=== PATIENT | female | born 1955 | race Caucasian/White ===

== ENCOUNTER 2023-03-28 13:35 | Outpatient (OUT) | payer SELFPAY | END 2023-03-28 13:36 | disposition home or self-care (01) | LOC: PST 13:35 | PROVIDERS: Visit Provider Surgery | DX: Z01.818 Encounter for other preprocedural examination (principal); R94.8 Abnormal results of function studies of other organs and systems; K62.5 Hemorrhage of anus and rectum; K59.04 Chronic idiopathic constipation ==

== ENCOUNTER 2023-04-05 06:28 | Day surgery (SDC) | payer MEDICARE, MEDICAID, SELFPAY ==
--- NOTE | 2023-04-05 | OP_ITS ---
OPERATION DATE: ??04/05/2023 PREOPERATIVE DIAGNOSIS:? Constipation, rectal bleeding, abnormal PET scan. POSTOPERATIVE DIAGNOSIS:? Normal EGD and redundant colon. PROCEDURE:? EGD and colonoscopy to cecum. SURGEON:? Edin Brown M.D. ANESTHESIA:? Monitored anesthesia care. ESTIMATED BLOOD LOSS:? Zero. INDICATIONS AND CONSENT:? Patient is a 68-year-old female with multiple medical problems including a history of lung cancer, who had an abnormal PET scan with increased activity within the rectum.? She also has had intermittent constipation, rectal bleeding.? She also increased activity within the stomach. ?Indications, risks, benefits, alternatives of proceeding with EGD and colonoscopy were explained extensively to the patient, including the risks of bleeding, aspiration, esophageal/gastric/duodenal or colonic perforation or anesthetic complications.? All of her questions were answered.? Informed consent was obtained. PROCEDURE:? Patient was brought to the operating room, placed in the left lateral decubitus position.? Monitored anesthesia care was provided.? Bite block was placed in the patient?s mouth.? Scope was inserted into the oropharynx.? Under direct visualization, it was advanced into the esophagus, past the cricopharyngeus, down to the stomach.? The stomach was insufflated with air.? The pylorus was traversed down to the descending portion of the duodenum.? There was no evidence of duodenitis or ulceration.? There was no scarring within the pyloric channel.?? Scope was pulled back into the stomach and retroflexed.? There was no significant hiatal hernia.? The GE junction was noted at approximately 35 cm.? There was no distal esophagitis or Mann?s changes. ?The remainder of the esophagus was unremarkable.? The scope was then withdrawn.? Patient tolerated procedure well, was sent to recovery room in good condition. f/u screening colonoscopy in 10 years CC:? Patient?s family physician OCTAVIO
--- NOTE | 2023-04-05 | OP_ITS ---
OPERATION DATE: ??04/05/2023 ADDENDUM:? To operative report from 04/05/2023. After the EGD part, please add this colonoscopy description: Patient was then placed in the left lateral decubitus position.? Rectal exam was performed which revealed no masses or blood.? The scope was then inserted into the anal canal.? Under direct visualization, it was advanced.? With the aid of abdominal compression, it was advanced to the cecum, where cecal markings were clearly identified.? There was noted to be a good prep.? Upon withdrawal of the scope, mucosal surfaces were carefully examined.? There were no mass lesions or polyps.? No inflammatory changes or ulcerations.? There was no significant diverticulosis.? There was redundancy and spasm of the colon.? The scope was retroflexed in the anal canal.? There was no significant hemorrhoidal disease, some prominent rectal veins.? The scope was then withdrawn.? Patient tolerated the procedure well.? Follow up colonoscopy should be in 10 years for screening. CC:? Dr. Morgan CUNNINGHAM
[2023-04-05 06:40] VITALS: BMI 14.8
[2023-04-05 07:04] VITALS: BP 100/58; PULSE 68; RESP 18; TEMP 36.9; O2SAT 99
[2023-04-05] MEDS: LACTATED RINGER'S SOLUTION 1,000 ML 50 ML IV (07:14)
[2023-04-05 08:18] VITALS: BP 140/72; PULSE 75; RESP 17; TEMP 36.2; O2SAT 100
[2023-04-05 08:33] VITALS: BP 133/49; PULSE 78; RESP 18; O2SAT 95
[2023-04-05 08:48] VITALS: BP 148/98; PULSE 77; RESP 18; O2SAT 98
== END 2023-04-05 08:50 | disposition home or self-care (01) ==
PROVIDERS: PCP Internal Medicine; Visit Provider Surgery
PROC: (CPT 813; principal; 2023-04-05 07:30)
DX: R94.8 Abnormal results of function studies of other organs and systems (principal); K62.5 Hemorrhage of anus and rectum; K59.04 Chronic idiopathic constipation; F41.9 Anxiety disorder, unspecified; F31.9 Bipolar disorder, unspecified; J44.9 Chronic obstructive pulmonary disease, unspecified; E78.2 Mixed hyperlipidemia; M85.80 Other specified disorders of bone density and structure, unspecified site; G40.909 Epilepsy, unspecified, not intractable, without status epilepticus; Z79.899 Other long term (current) drug therapy; F17.210 Nicotine dependence, cigarettes, uncomplicated; F17.290 Nicotine dependence, other tobacco product, uncomplicated; Z85.118 Personal history of other malignant neoplasm of bronchus and lung; Q43.8 Other specified congenital malformations of intestine
CPT/HCPCS: 43235; 45378; J2704

== ENCOUNTER 2023-06-07 12:14 | Outpatient (OUT) | payer MEDICARE, MEDICAID, SELFPAY ==
--- NOTE | 2023-06-07 12:27 | MR_ITS ---
[address] [address] Patient Name: DAMON WHIPPLE MRN: [facility]:[id number] date: 1955 Sex: F Assigned Patient Location: LAB Current Patient Location: LAB Accession/Order Number: [id number] Exam Date: 06/07/2023 12:40 Report Date: 06/07/2023 13:50 At the request of: NON-STAFF PHYSICIAN Procedure: MR head/brain wo/w con MR head/brain wo/w con COMPARISON: August 2022 MRI brain CLINICAL HISTORY: Lung carcinoma. Evaluate for metastasis TECHNIQUE: Sagittal and axial T1, axial T2 FSE, axial flair, axial DWI, axial, sagittal, coronal T1 post 8 mL Dotarem FINDINGS: There is no diffusion abnormality. There is mild parenchymal volume loss. Mild T2 hyperintensity in the central and periventricular white matter. There is no cortical abnormality. There is no mass, mass effect, nor hydrocephalus. Postcontrast, there is no abnormal enhancement. The dural sinuses are patent. There are no areas of hemosiderin staining. The orbits, sella, and craniocervical junction appear unremarkable. Moderate spondylitic changes of the upper cervical spine MR/MR head/brain wo/w con IMPRESSION: NO MRI EVIDENCE FOR ACUTE ISCHEMIA. NO MRI EVIDENCE FOR INTRACRANIAL METASTATIC DISEASE. STABLE FOLLOW-UP Electronically authenticated by: ROLY SEVILLA Date: 06/07/2023 13:50
[2023-06-07 12:43] LABS: Alanine Aminotransferase 19 U/L (14-59); Albumin Globulin Ratio 0.9; Albumin Level 3.7 g/dL (3.4-5.0); Alkaline Phosphatase 78 U/L (46-116); Anion Gap 15.2; Aspartate Amino Transferase 13 U/L (15-37); Bilirubin Total 0.3 mg/dL (0.2-1.0); Calcium 9.1 mg/dL (8.5-10.1); Carbon Dioxide 25.9 mmol/L (21.0-32.0); Chloride 105 mmol/L (98-107); Estimated GFR (African America >60 (>=60); Estimated GFR (Non-African Ame >60 (>=60); Globulin 3.9 g/dL; Glucose 133 mg/dL (74-106); Potassium 4.1 mmol/L (3.5-5.1); Sodium 142 mmol/L (136-145); Total Protein 7.6 g/dL (6.4-8.2)
== END 2023-06-07 12:15 | disposition home or self-care (01) ==
LOC: LAB 12:14
PROVIDERS: PCP Internal Medicine
DX: C34.90 Malignant neoplasm of unspecified part of unspecified bronchus or lung (principal); C80.1 Malignant (primary) neoplasm, unspecified
CPT/HCPCS: 36415; 70553; 80053; A9575

== ENCOUNTER 2023-09-15 12:27 | Outpatient (OUT) | payer MEDICARE, MEDICAID, SELFPAY ==
--- NOTE | 2023-09-15 12:30 | XR_ITS ---
The [address] [address] Patient Name: DAMON WHIPPLE MRN: [id number]:[id number] date: 1955 Sex: F Assigned Patient Location: LAB Current Patient Location: Accession/Order Number: [id number] Exam Date: 09/15/2023 12:31 Report Date: 09/16/2023 06:04 At the request of: SHAIKH ROYCE Procedure: XR chest 2V EXAMINATION: XR chest 2V HISTORY: COPD with acute exacerbation J44.1 COMPARISON: No relevant comparison available. FINDINGS: LUNGS: No significant pulmonary parenchymal abnormalities. VASCULATURE: No increased pulmonary vasculature. PLEURA: No pneumothorax, effusion, or pleural thickening. CARDIAC: No cardiomegaly or cardiac silhouette abnormality. MEDIASTINUM: No visible mass or adenopathy. BONES: No fracture or visible bone lesion. OTHER: Negative. XR/XR chest 2V IMPRESSION: 1. Hyperexpanded lungs. 2. No acute or suspicious cardiopulmonary process. Electronically authenticated by: YOSSI LANE Date: 09/16/2023 06:04
== END 2023-09-15 12:28 | disposition home or self-care (01) ==
LOC: LAB 12:27
PROVIDERS: PCP Internal Medicine; Visit Provider Internal Medicine
DX: J44.1 Chronic obstructive pulmonary disease with (acute) exacerbation (principal)
CPT/HCPCS: 71046

== ENCOUNTER 2024-02-06 14:19 | Outpatient (OUT) | payer MEDICARE, MEDICAID, SELFPAY ==
--- NOTE | 2024-02-06 14:33 | MR_ITS ---
The [address] [address] Patient Name: DAMON WHIPPLE MRN: [facility]:[id number] date: 1955 Sex: F Assigned Patient Location: LAB Current Patient Location: Accession/Order Number: [id number] Exam Date: 02/06/2024 14:45 Report Date: 02/07/2024 08:08 At the request of: YAW WARNER Procedure: MR head/brain wo/w con MR head/brain wo/w con, 02/06/2024 2:45 PM EDT INDICATION: Small Cell Lung Cancer COMPARISON: Prior MRI of the head dated 06/07/2023 and 08/30/2022 TECHNIQUE: Multiplanar, multisequential MRI images of brain were obtained without and with injection of contrast. FINDINGS: The cerebral sulci as well as ventricular system are appropriate for age. There is no restricted diffusion. Hyperintensities on T2 and FLAIR images in the gabriel radiata and centrum semiovale with sparing of U fibers are nonspecific, statistically most likely consistent with mild microvascular ischemic changes. There is no intracranial mass, mass effect, midline shift, intra or extra-axial fluid collection or large hemorrhage. No abnormal enhancing lesion is noted. Normal flow-void in the intracranial vessels is noted. There is retention cyst within the right maxillary sinus. The visualized portions of orbits, mastoid air cells as well as remainder of paranasal sinuses are unremarkable. MR/MR head/brain wo/w con IMPRESSION: No acute intracranial process is noted. No evidence of metastasis in the current study. Electronically authenticated by: WILMAN ESCOTO Date: 02/07/2024 08:08
[2024-02-06 14:44] LABS: Estimated GFR (African America >60 (>=60); Estimated GFR (Non-African Ame >60 (>=60)
== END 2024-02-06 14:20 | disposition home or self-care (01) ==
LOC: LAB 14:19
PROVIDERS: PCP Internal Medicine; Visit Provider Physician Assistant Medical
DX: C80.1 Malignant (primary) neoplasm, unspecified (principal); C34.90 Malignant neoplasm of unspecified part of unspecified bronchus or lung
CPT/HCPCS: 36415; 70553; 82565; A9575

== ENCOUNTER 2024-05-14 14:37 | Outpatient (OUT) | payer MEDICARE, MEDICAID, SELFPAY ==
--- NOTE | 2024-05-14 | XR_ITS ---
The [address] [address] Patient Name: DAMON WHIPPLE MRN: [id number] date: 1955 Sex: F Assigned Patient Location: [facility] Current Patient Location: Accession/Order Number: [id number] Exam Date: 05/14/2024 14:38 Report Date: 05/18/2024 09:01 At the request of: NAMAN GASCA Procedure: XR foot LT min 3V PROCEDURE: XR foot LT min 3V HISTORY: LEFT FOOT PAIN COMPARISON: None. FINDINGS: BONES:Mild degenerative change of first metatarsophalangeal joint consisting of joint space narrowing and periarticular sites. Hypertrophy the head of first metatarsal and mild lateral deviation of the phalanges. SOFT TISSUES:No visible soft tissue swelling. EFFUSION:None visible. OTHER: Negative. XR/XR foot LT min 3V IMPRESSION: 1. Mild-moderate bunion formation. 2. 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 Electronically authenticated by: YOSSI LANE Date: 05/18/2024 09:01
== END 2024-05-14 14:38 | disposition home or self-care (01) ==
LOC: RAD 14:37
PROVIDERS: PCP Internal Medicine; Visit Provider Podiatrist Foot & Ankle Surgery
DX: M79.672 Pain in left foot (principal); M21.612 Bunion of left foot
CPT/HCPCS: 73630

== ENCOUNTER 2024-11-09 17:00 | Emergency (ER) | payer MEDICARE, MEDICAID, SELFPAY ==
--- OUTSIDE RECORDS SUMMARY | 2024-11-04 14:27 | XMS_ITS ---
Author Name Auto Generated Organization OHIP Care Team Providers Care Facility Administrator Name Role Phone MICHAEL HOLM Attending Unavailable VEENAWAD, CHURCH Attending Unavailable CARLOS DUNBAR Attending Unavailable LIANNA DELGADO Attending Unavailabl e LIANNA DELGADO Attending Unavailabl e KARAMWESLEYU, APOLINAR Referring Unavailable FAWWAD, CHURCH Primary Care Unavailable OSMAN HUDSON Attending Unavailable FAWWAD, CHURCH Primary Care Unavailable AMY WARNER Referring Unavailable FAWWAD, CHURCH Primary Care Unavailable KARAMLOU, APOLINAR Attending Unavailable KARAMLOU, APOLINAR Referring Unavailable KARAMLOU, APOLINAR Referring Unavailable FAWWAD, CHURCH Primary Care Unavailable KARAMLOU, APOLINAR Attending Unavailable FAWWAD, CHURCH Primary Care Unavailable PROBLEMS DATE TYPE CONDITION / CODE ATTENDING STATUS [facility] 10/15/2024 Active Malignant neopla sm of unspecified part of unspecified bronchus or lung (HCC) / C34.90(ICD-10) NA Active [facility] 10/15/2024 Active History of prima ry small cell carcinoma of lung / Z85.118(ICD-10) NA Active [facility] 10/15/2024 Active Abnormal chest C T / R93.89(ICD-10) NA Active [facility] 03/06/2024 Active Small cell carci noma (HCC) / C80.1(ICD-10) NA Active [facility] PROCEDURES No Procedure Records Found RESULTS CNOVSP Observed: 11/04/2024 2:30 PM Status: COMPLETED Source: [facility] Visit (SP) Office ([place]) DAMON POLLARD ([id number]) 1955 F Date Time Provider Department 11/04/24 2:30 PM OSMAN HUDSON During your visit today, we recorded the following information about you: Temperature Pulse Respiration Blood pressure 97.7 degrees 74/minute 16/minute 147/62 Weight Height 44.6 kg 1.66 m Osman Hudson MD 11/05/2024 8:30 AM Signed PATIENT NAME: Damon Pollard [facility] NO.: [id number] ATTENDING PHYSICIAN: Osman Hudson MD DATE OF SERVICE: November 04, 2024 Some of the elements of this note have been copied from previous progress note dated 09/24/24. All the information has been reviewed carefully. Dear Dr. Mora here is an update on a follow up visit on female Damon Pollard at the clinic on November 04, 2024 Diagnosis: 1. Extensive stage SCLC Treatment History: 1. Carbo/Etoposide/Atezo 03/24/2021, Chemo ended ( 4 cycles) 06/16/2021- Atezo single agent resumed- last dose 01/25/2022, patient was in shelter- Therapy was not resumed On LU007 and randomized to the observation arm- Taken off stude due to compliance issues 2. Upper scope and a colonoscopy 03/[address] Long which was negative HPI: Damon Pollard is a 69 year old year old female here for follow up. Tremendous amount of anxiety and also L trigger finger,. She also has a baseline cough as she continues to smoke. Breathing the same and also denies amado MCGOVERN and or abdominal pain . 11/04/24: - PET scan (10/15/24)- PRIMARY DISEASE SITE: * Right upper lobe post-treatment changes without metabolically active recurrent mass. * Metabolically active LEFT lung nodules could be primary or metastatic lesions. FELISHA DISEASE: * Subcentimeter right hilar lymph node with low metabolism, non-specific. METASTATIC DISEASE: * No metabolically active distant extrathoracic metastases. ADDITIONAL FINDINGS: * Asymmetric areas of metabolic activity along the left tongue and right eccentric mandibular buccal surface in the oral cavity. Correlate with direct visualization to exclude underlying mucosal lesions. * Few subcentimeter lung nodules are below may be below resolution of PET, indeterminate. - Doing well - Cannot do bronchoscopy at [place] due to taxi problem. - Smokes 1pk/day. PAST MEDICAL HISTORY Diagnosis Date Bipolar 2 disorder (HCC) Generalized anxiety disorder H/O emphysema (HCC) Hepatitis Hypokalemia Low back pain Lung cancer (HCC) Menopause Patient reports she was 41 at the time of onset Mixed hyperlipidemia Osteopenia Seizure disorder (HCC) Social History Tobacco Use Smoking status: Some Days Current packs/day: 0.00 Types: Cigarettes Last attempt to quit: 03/02/2021 Years since quittin.6 Passive exposure: Never Smokeless tobacco: Never Vaping Use Vaping status: Never Used Substance Use Topics Alcohol use: Never Drug use: Never FAMILY HISTORY Problem Relation Age of Onset Hypertension Mother Cancer Mother Hypertension Father Cancer Sister Past medical, social and family history reviewed without any changes. REVIEW OF SYSTEMS GENERAL: No weight loss, malaise or fevers. No night sweats. HEENT: Negative for headaches, No changes in hearing or vision, no nose bleeds or other nasal problems. RESPIRATORY: Negative for cough, wheezing and shortness of breath CARDIOVASCULAR: Negative for chest pain, leg swelling and palpitations GI: Negative for abdominal discomfort, blood in stools or black stools and change in bowel habits : Negative for dysuria, frequency and incontinence MUSCULOSKELETAL: Negative for joint pain or swelling, back pain, and muscle pain. SKIN: Negative for lesions, rash, and itching. HEMATOLOGY/LYMPHOLOGY Negative for prolonged bleeding, bruising easily, and swollen nodes. NEURO: Negative for numbness or tingling of hands/feet. No weakness. PHYSICAL EXAMINATION: There were no vitals taken for this visit. Wt 49.4 kg (109 lb) BMI 17.94 kg/m2 Last 3 Encounter Wt Readings: Date: Wt: 03/24/2021 49.4 kg (109 lb) 03/16/2021 50.2 kg (110 lb 9.6 oz) General appearance:ECOG PERFORMANCE STATUS: 1- Restricted in physically strenuous activity. Carries out light duty. Patient in NAD. Skin: Skin color, texture, turgor normal. No rashes or lesions. Eyes: Anicteric sclera. Pupils are equally round and reactive to light. Extraocular movements are intact. Lymph Nodes: No cervical, supraclavicular, axillary or inguinal adenopathy.Reduction in axillary nodes. Oropharynx: Lips, mucosa, and tongue normal. Back: No pain to percussion. Negative SLR test Lungs clear to auscultation, No wheezing or rhonchi Heart: RRR without murmur, gallop, or rubs. Abdomen soft, non-tender. No masses, organomegaly Extremities: No deformities. No edema Neuro: Gait and speech normal. Reflexes normal and symmetric. Muscular strength intact. Sensation grossly intact. Rectal: Deferred : Deferred LABS: Glucose (mg/dL) Date Value 09/12/2024 149 08/12/2021 113 Potassium (mmol/L) Date Value 09/12/2024 3.5 08/12/2021 3.7 Sodium (mmol/L) Date Value 09/12/2024 141 08/12/2021 137 Chloride (mmol/L) Date Value 09/12/2024 107 08/12/2021 103 CO2 (mmol/L) Date Value 09/12/2024 20 08/12/2021 24 Creatinine (mg/dL) Date Value 09/12/2024 0.64 08/12/2021 0.56 BUN (mg/dL) Date Value 09/12/2024 14 08/12/2021 5 Anion Gap (mmol/L) Date Value 09/12/2024 14 08/12/2021 10 Calcium (mg/dL) Date Value 08/12/2021 9.6 Calcium, Total (mg/dL) Date Value 09/12/2024 9.9 Protein, Total (g/dL) Date Value 09/12/2024 7.5 08/12/2021 7.8 Albumin (g/dL) Date Value 09/12/2024 4.7 08/12/2021 4.6 Bilirubin, Total (mg/dL) Date Value 09/12/2024 0.3 08/12/2021 0.4 Alkaline Phosphatase (U/L) Date Value 09/12/2024 87 08/12/2021 96 AST (U/L) Date Value 09/12/2024 16 08/12/2021 16 ALT (U/L) Date Value 09/12/2024 11 08/12/2021 13 WBC Date Value Ref Range Status 09/12/2024 6.01 3.70 - 11.00 k/uL Final RBC Date Value Ref Range Status 09/12/2024 4.10 3.90 - 5.20 m/uL Final Hemoglobin Date Value Ref Range Status 09/12/2024 12.4 11.5 - 15.5 g/dL Final Hematocrit Date Value Ref Range Status 09/12/2024 36.2 36.0 - 46.0 % Final MCV Date Value Ref Range Status 09/12/2024 88.3 80.0 - 100.0 fL Final MCH Date Value Ref Range Status 09/12/2024 30.2 26.0 - 34.0 pg Final MCHC Date Value Ref Range Status 09/12/2024 34.3 30.5 - 36.0 g/dL Final RDW-CV Date Value Ref Range Status 09/12/2024 13.7 11.5 - 15.0 % Final Platelet Count Date Value Ref Range Status 09/12/2024 229 150 - 400 k/uL Final MPV Date Value Ref Range Status 09/12/2024 10.8 9.0 - 12.7 fL Final Abs Neut Date Value Ref Range Status 09/12/2024 2.72 1.45 - 7.50 k/uL Final Lymphocytes % Date Value Ref Range Status 09/12/2024 40.4 % Final Abs Lymph Date Value Ref Range Status 09/12/2024 2.43 1.00 - 4.00 k/uL Final Monocytes % Date Value Ref Range Status 09/12/2024 10.0 % Final Abs Charles Mix Date Value Ref Range Status 09/12/2024 0.60 <0.87 k/uL Final Eosin% Date Value Ref Range Status 01/25/2022 3.5 % Final Abs Eosin Date Value Ref Range Status 09/12/2024 0.20 <0.46 k/uL Final Basophils % Date Value Ref Range Status 09/12/2024 1.0 % Final Abs Baso Date Value Ref Range Status 09/12/2024 0.06 <0.11 k/uL Final PATH: Bronch 01/2021: Imaging: CT Scan of the Chest and Abdomen and Pelvis and MRI Brain 02/2021: CT of the Chest and Abdomen and Pelvis 05/2021: 1. Since 03/06/2021, substantial decrease in infiltrative right lung/hilar neoplasm, compatible with excellent treatment response. There are bandlike and nodular regions of residual soft tissue within the right upper lobe and mediastinum, as detailed within the results section. 2. Near-complete resolution of previously seen axillary and mediastinal lymphadenopathy. 3. Moderate-severe persistent narrowing of the proximal right upper lobe apical segmental bronchus. Mass effect along the right upper lobe bronchial tree has overall still markedly improved. 4. Please refer to concurrently acquired and separately reported chest CT for findings related to the thorax. 1. Since 03/12/2021, resolution of previously seen right adrenal nodule, likely due to treatment response. Both adrenals are now normal in appearance. 2. Decrease in size of previously enlarged retroperitoneal lymph nodes. 3. Resolution of previously seen hypodensity within the liver, which likely represented geographic hepatic steatosis. 4. Please refer to concurrently acquired and separately reported chest CT for findings related to the thorax. CT of the Chest and Abdomen and Pelvis and Brain 07/2021: 1. Interval improvement in the bandlike opacity in the right upper lobe. Right suprahilar soft tissue density is stable. 2. No new lobar consolidation or pleural effusion. 3. Previously described mediastinal and right axillary nodes are either stable or slightly decreased in size when compared to prior study. No new bulky intrathoracic adenopathy. 4. Stable persistent narrowing of the right upper lobe apical segmental Bronchus. 1. Several subcentimeter retroperitoneal lymph nodes are again identified, stable from prior study of 05/21/2021. No substantial intra-abdominal or pelvic lymphadenopathy is appreciated. 2. Incidental note is again made of cholelithiasis. No CT evidence of intracranial metastatic disease. CT of the Chest and Abdomen and Pelvis 09/2021: 1. Stable soft tissue in the mediastinal and right hilar regions since 07/29/2021, likely representing treated neoplastic lymphadenopathy in this patient with a history of small cell lung cancer. Bulky lymphadenopathy was present in in these regions on the more remote chest CT from 03/06/2021. No new thoracic lymphadenopathy. 2. Stable right upper lobe pulmonary nodular density since 07/29/2021 which may represent treated neoplasm versus radiation pneumonitis/fibrosis. No new or enlarging pulmonary nodule. Dense masslike consolidation was present in this region on the more remote chest CT from 03/06/2021. 3. Emphysema. Stable exam with nonenlarged retroperitoneal nodes. No intra-abdominal or pelvic metastasis CT Chest and Abd and Pelvis 01/2022: 1. Stable lung findings, with right upper lobe linear and curvilinear scar like opacities intervening small nodular opacities, which may represent chronic scarring, treated tumor or post treatment changes. Tiny left upper lobe nodule noted (visible back to outside chest CT dated 03/16/2021), and may be benign. No new nodules noted. 2. Subcentimeter intrathoracic lymph nodes redemonstrated, although a few of the lymph nodes may measure slightly larger. Attention on follow-up recommended. 3. Emphysema Stable nonenlarged abdominopelvic lymph nodes. No metastatic disease in the abdomen or pelvis. MRI Brain 11/2021: PET Scan 05/2023: 1. Neck: No suspicious hypermetabolic foci 2. Chest: No evidence of FDG avid neoplastic process 3. Abdomen and pelvis: Diffuse anal uptake similar to prior. Clinical correlation. 4. Skeleton: No hypermetabolic osseous lesions MRI Brain 01/2024: No acute intracranial process is noted. No evidence of metastasis in the current study. CT Scan of the Chest and Abdomen and Pelvis 02/2024: No metastatic disease in the abdomen or pelvis. No metastatic disease in the chest. CT Scan of the Chest and Abdomen and Pelvis 08/2024: 1. Cluster of pulmonary nodules in the anterior and medial left lower lobe, measuring up to 1.6 m in size. This is suspicious for bronchogenic carcinoma given patient's clinical history. Would advise further evaluation with PET/CT at this time. 2. There are additional smaller subcentimeter nodules which will be too small for assessment with PET/CT. For example, there is a new 3 mm nodule in the right upper lobe. Would advise a 3 month follow-up chest CT without contrast to assess the smaller nodules, given that they will not be adequately evaluated with the above recommended PET/CT. 1. No evidence of metastatic disease in the abdomen or pelvis. Assessment and Plan: Damon Pollard is a 69 year old year old female here for follow up. Extensive Stage SCLC- Post 3 cycles of Carbo/Etoposide and Atezo with clinical benefit and response clinically and on imaging. She completed 4 cycles of Carbo and Etoposide and Atezo 06/16/2021 and continued single agent Atezo last 01/2022. She was lost to follow up and also taken off study due to compliance issues. Her imaging 08/2024 was reviewed with her and concerning for new cluster of nodules in the LLL, offered a bronch and she could not get a ride to . - PET scan on 10/15/24 showed Metabolically active LEFT lung nodules could be primary or metastatic lesions. Subcentimeter right hilar lymph node with low metabolism, non-specific. - Ordered left lung biopsy with IR at [facility]. Will schedule bronchoscopy [facility] in [place] if we cannot get biopsy with IR. - She cannot do bronchoscopy at [place] as she could not get a ride to . - Schedule MRI brain. - shala Ennis prescription renewed. H/o Meth abuse Irregular bowels and abnormal PET findings but scopes 03/2023 negative both upper and lower- Follows [facility] with GI as well. Trigger finger- refer to hand surgery Anxiety- Significanit anxiety- Limited supply of Ativan Thank you for the kind referral. If there are any questions and or concerns please do not hesitate to contact me at [phone]. Osman Hudson MD Hematology/Medical Oncology [facility] I spent a total of 20 minutes on the date of the service which included preparing to see the patient, [id number] patient care, completing clinical documentation, obtaining and/or reviewing separately obtained history, performing a medically appropriate examination, counseling and educating the patient/family/caregiver and ordering medications, tests, or procedures. CC: MD Shaikh Morgan Rust MD Vennepureddy, Adarsh, MD 11/04/2024 3:07 PM Signed Ordered left lung biopsy to be scheduled at [facility] Schedule MRI brain. Ordered by . F/u in 3 weeks Allergies As of Date: 11/04/2024 Noted Allergy Reaction AZITHROMYCIN 02/22/2024 7 - Swelling ERYTHROMYCIN 12/30/2020 4 - Hives Date Reviewed: 09/20/2024 Reviewed by: Apolinar Reyna MD - Fully Assessed Primary Visit Diagnosis:Malignant neoplasm of unspecified part of unspecified bronchus or lung (HCC) [C34.90] Order(s):IMAGING GUIDED BIOPSY LUNG [[id number]] Order #: [id number] FUTURE zolpidem (AMBIEN) 10 mgTake 1 tablet by mouth daily at bedtime for 30 days.Disp: 30 tabletRfl: 0 LINZESS 290 mcg capsuleTake 1 capsule by mouth daily at 6 am. Take capsule on an empty stomach at least 30 minutes before a meal at the same time each day. Capsule should be swallowed whole. DO NOT chew or crush.Disp: 30 capsuleRfl: 1 Level of Service: OFFICE/OUTPATIENT ESTABLISHED LOW MDM 20 MIN [63306] Additional E/M codes: VISIT CPLX INHERENT EANDM ASSOC WITH MED * Disposition: Return in about 3 weeks (around 11/25/2024). Follow-up and Disposition History for Encounter Date Provider Department Center 11/04/2024 [id number] HUDSON Prescriptions as of 11/05/2024 - zolpidem (AMBIEN) 10 mg Take 1 tablet by mouth daily at bedtime for 30 days. - LINZESS 290 mcg capsule Take 1 capsule by mouth daily at 6 am. Take capsule on an empty stomach at least 30 minutes before a meal at the same time each day. Capsule should be swallowed whole. DO NOT chew or crush. - sulfamethoxazole-trimethoprim (BACTRIM DS) 800-160 mg per tablet TAKE ONE TABLET BY MOUTH TWO TIMES A DAY X 1 WEEK - LORazepam (ATIVAN) 1 mg tablet Take 1 tablet by mouth every 8 hours as needed for up to 14 days. - ibuprofen (MOTRIN) 800 mg tablet Take 1 tablet by mouth every 6 hours. - QUEtiapine (SEROQUEL) 200 mg tablet Take 1 tablet by mouth daily at bedtime. - meclizine (ANTIVERT) 25 mg tab Take 1 tablet by mouth three times a day as needed. - mirtazapine (REMERON) 15 mg tablet take 1 tablet by mouth at bedtime - CONSTULOSE 10 gram/15 mL solution take 15 milliliters by mouth twice a day if needed - SPIRIVA RESPIMAT 2.5 mcg/actuation inhaler inhale 2 puffs INTO THE LUNGS once daily - busPIRone HCl 30 mg tablet Take 30 mg by mouth q 12 HR. - SYMBICORT 160-4.5 mcg/actuation inhaler Inhale 2 Puffs as instructed twice daily. - albuterol HFA (VENTOLIN HFA) 90 mcg/actuation inhaler Inhale as instructed. Problem List As Of Date 11/04/2024 Noted Resolved Small cell lung cancer, right lower lobe (HCC) *03/16/2021 Severe protein-calorie malnutrition (HCC) [E43] 04/14/2021 Bipolar disorder (HCC) [F31.9] 06/14/2023 Other instructions from your clinician: Ordered left lung biopsy to be scheduled at [facility] MRI brain. Ordered by . F/u in 3 weeks Encounter Status:Closed by OSMAN HUDSON on 11/05/24 PROGRESS Observed: 11/04/2024 2:30 PM Status: COMPLETED Source: [facility] HNO ID: [id number] Author: OSMAN HUDSON MD Service: ? Author Type: Physician Type: Progress Notes Filed: 11/05/2024 08:30 Note Text: PATIENT NAME: Damon Pollard [facility] NO.: [id number] ATTENDING PHYSICIAN: Osman Hudson MD DATE OF SERVICE: November 04, 2024 Some of the elements of this note have been copied from previous progress note dated 09/24/24. All the information has been reviewed carefully. Dear Dr. Mora here is an update on a follow up visit on female Damon Pollard at the clinic on November 04, 2024 Diagnosis: 1. Extensive stage SCLC Treatment History: 1. Carbo/Etoposide/Atezo 03/24/2021, Chemo ended ( 4 cycles) 06/16/2021- Atezo single agent resumed- last dose 01/25/2022, patient was in shelter- Therapy was not resumed On LU007 and randomized to the observation arm- Taken off stude due to compliance issues 2. Upper scope and a colonoscopy 03/[address] Long which was negative HPI: Damon Pollard is a 69 year old year old female here for follow up. Tremendous amount of anxiety and also L trigger finger,. She also has a baseline cough as she continues to smoke. Breathing the same and also denies amado MCGOVERN and or abdominal pain . 11/04/24: - PET scan (10/15/24)- PRIMARY DISEASE SITE: * Right upper lobe post-treatment changes without metabolically active recurrent mass. * Metabolically active LEFT lung nodules could be primary or metastatic lesions. FELISHA DISEASE: * Subcentimeter right hilar lymph node with low metabolism, non-specific. METASTATIC DISEASE: * No metabolically active distant extrathoracic metastases. ADDITIONAL FINDINGS: * Asymmetric areas of metabolic activity along the left tongue and right eccentric mandibular buccal surface in the oral cavity. Correlate with direct visualization to exclude underlying mucosal lesions. * Few subcentimeter lung nodules are below may be below resolution of PET, indeterminate. - Doing well - Cannot do bronchoscopy at [place] due to taxi problem. - Smokes 1pk/day. PAST MEDICAL HISTORY Diagnosis Date Bipolar 2 disorder (HCC) Generalized anxiety disorder H/O emphysema (HCC) Hepatitis Hypokalemia Low back pain Lung cancer (HCC) Menopause Patient reports she was 41 at the time of onset Mixed hyperlipidemia Osteopenia Seizure disorder (HCC) Social History Tobacco Use Smoking status: Some Days Current packs/day: 0.00 Types: Cigarettes Last attempt to quit: 03/02/2021 Years since quittin.6 Passive exposure: Never Smokeless tobacco: Never Vaping Use Vaping status: Never Used Substance Use Topics Alcohol use: Never Drug use: Never FAMILY HISTORY Problem Relation Age of Onset Hypertension Mother Cancer Mother Hypertension Father Cancer Sister Past medical, social and family history reviewed without any changes. REVIEW OF SYSTEMS GENERAL: No weight loss, malaise or fevers. No night sweats. HEENT: Negative for headaches, No changes in hearing or vision, no nose bleeds or other nasal problems. RESPIRATORY: Negative for cough, wheezing and shortness of breath CARDIOVASCULAR: Negative for chest pain, leg swelling and palpitations GI: Negative for abdominal discomfort, blood in stools or black stools and change in bowel habits : Negative for dysuria, frequency and incontinence MUSCULOSKELETAL: Negative for joint pain or swelling, back pain, and muscle pain. SKIN: Negative for lesions, rash, and itching. HEMATOLOGY/LYMPHOLOGY Negative for prolonged bleeding, bruising easily, and swollen nodes. NEURO: Negative for numbness or tingling of hands/feet. No weakness. PHYSICAL EXAMINATION: There were no vitals taken for this visit. Wt 49.4 kg (109 lb) BMI 17.94 kg/m2 Last 3 Encounter Wt Readings: Date: Wt: 03/24/2021 49.4 kg (109 lb) 03/16/2021 50.2 kg (110 lb 9.6 oz) General appearance:ECOG PERFORMANCE STATUS: 1- Restricted in physically strenuous activity. Carries out light duty. Patient in NAD. Skin: Skin color, texture, turgor normal. No rashes or lesions. Eyes: Anicteric sclera. Pupils are equally round and reactive to light. Extraocular movements are intact. Lymph Nodes: No cervical, supraclavicular, axillary or inguinal adenopathy.Reduction in axillary nodes. Oropharynx: Lips, mucosa, and tongue normal. Back: No pain to percussion. Negative SLR test Lungs clear to auscultation, No wheezing or rhonchi Heart: RRR without murmur, gallop, or rubs. Abdomen soft, non-tender. No masses, organomegaly Extremities: No deformities. No edema Neuro: Gait and speech normal. Reflexes normal and symmetric. Muscular strength intact. Sensation grossly intact. Rectal: Deferred : Deferred LABS: Glucose (mg/dL) Date Value 09/12/2024 149 08/12/2021 113 Potassium (mmol/L) Date Value 09/12/2024 3.5 08/12/2021 3.7 Sodium (mmol/L) Date Value 09/12/2024 141 08/12/2021 137 Chloride (mmol/L) Date Value 09/12/2024 107 08/12/2021 103 CO2 (mmol/L) Date Value 09/12/2024 20 08/12/2021 24 Creatinine (mg/dL) Date Value 09/12/2024 0.64 08/12/2021 0.56 BUN (mg/dL) Date Value 09/12/2024 14 08/12/2021 5 Anion Gap (mmol/L) Date Value 09/12/2024 14 08/12/2021 10 Calcium (mg/dL) Date Value 08/12/2021 9.6 Calcium, Total (mg/dL) Date Value 09/12/2024 9.9 Protein, Total (g/dL) Date Value 09/12/2024 7.5 08/12/2021 7.8 Albumin (g/dL) Date Value 09/12/2024 4.7 08/12/2021 4.6 Bilirubin, Total (mg/dL) Date Value 09/12/2024 0.3 08/12/2021 0.4 Alkaline Phosphatase (U/L) Date Value 09/12/2024 87 08/12/2021 96 AST (U/L) Date Value 09/12/2024 16 08/12/2021 16 ALT (U/L) Date Value 09/12/2024 11 08/12/2021 13 WBC Date Value Ref Range Status 09/12/2024 6.01 3.70 - 11.00 k/uL Final RBC Date Value Ref Range Status 09/12/2024 4.10 3.90 - 5.20 m/uL Final Hemoglobin Date Value Ref Range Status 09/12/2024 12.4 11.5 - 15.5 g/dL Final Hematocrit Date Value Ref Range Status 09/12/2024 36.2 36.0 - 46.0 % Final MCV Date Value Ref Range Status 09/12/2024 88.3 80.0 - 100.0 fL Final MCH Date Value Ref Range Status 09/12/2024 30.2 26.0 - 34.0 pg Final MCHC Date Value Ref Range Status 09/12/2024 34.3 30.5 - 36.0 g/dL Final RDW-CV Date Value Ref Range Status 09/12/2024 13.7 11.5 - 15.0 % Final Platelet Count Date Value Ref Range Status 09/12/2024 229 150 - 400 k/uL Final MPV Date Value Ref Range Status 09/12/2024 10.8 9.0 - 12.7 fL Final Abs Neut Date Value Ref Range Status 09/12/2024 2.72 1.45 - 7.50 k/uL Final Lymphocytes % Date Value Ref Range Status 09/12/2024 40.4 % Final Abs Lymph Date Value Ref Range Status 09/12/2024 2.43 1.00 - 4.00 k/uL Final Monocytes % Date Value Ref Range Status 09/12/2024 10.0 % Final Abs Charles Mix Date Value Ref Range Status 09/12/2024 0.60 <0.87 k/uL Final Eosin% Date Value Ref Range Status 01/25/2022 3.5 % Final Abs Eosin Date Value Ref Range Status 09/12/2024 0.20 <0.46 k/uL Final Basophils % Date Value Ref Range Status 09/12/2024 1.0 % Final Abs Baso Date Value Ref Range Status 09/12/2024 0.06 <0.11 k/uL Final PATH: Bronch 01/2021: Imaging: CT Scan of the Chest and Abdomen and Pelvis and MRI Brain 02/2021: CT of the Chest and Abdomen and Pelvis 05/2021: 1. Since 03/06/2021, substantial decrease in infiltrative right lung/hilar neoplasm, compatible with excellent treatment response. There are bandlike and nodular regions of residual soft tissue within the right upper lobe and mediastinum, as detailed within the results section. 2. Near-complete resolution of previously seen axillary and mediastinal lymphadenopathy. 3. Moderate-severe persistent narrowing of the proximal right upper lobe apical segmental bronchus. Mass effect along the right upper lobe bronchial tree has overall still markedly improved. 4. Please refer to concurrently acquired and separately reported chest CT for findings related to the thorax. 1. Since 03/12/2021, resolution of previously seen right adrenal nodule, likely due to treatment response. Both adrenals are now normal in appearance. 2. Decrease in size of previously enlarged retroperitoneal lymph nodes. 3. Resolution of previously seen hypodensity within the liver, which likely represented geographic hepatic steatosis. 4. Please refer to concurrently acquired and separately reported chest CT for findings related to the thorax. CT of the Chest and Abdomen and Pelvis and Brain 07/2021: 1. Interval improvement in the bandlike opacity in the right upper lobe. Right suprahilar soft tissue density is stable. 2. No new lobar consolidation or pleural effusion. 3. Previously described mediastinal and right axillary nodes are either stable or slightly decreased in size when compared to prior study. No new bulky intrathoracic adenopathy. 4. Stable persistent narrowing of the right upper lobe apical segmental Bronchus. 1. Several subcentimeter retroperitoneal lymph nodes are again identified, stable from prior study of 05/21/2021. No substantial intra-abdominal or pelvic lymphadenopathy is appreciated. 2. Incidental note is again made of cholelithiasis. No CT evidence of intracranial metastatic disease. CT of the Chest and Abdomen and Pelvis 09/2021: 1. Stable soft tissue in the mediastinal and right hilar regions since 07/29/2021, likely representing treated neoplastic lymphadenopathy in this patient with a history of small cell lung cancer. Bulky lymphadenopathy was present in in these regions on the more remote chest CT from 03/06/2021. No new thoracic lymphadenopathy. 2. Stable right upper lobe pulmonary nodular density since 07/29/2021 which may represent treated neoplasm versus radiation pneumonitis/fibrosis. No new or enlarging pulmonary nodule. Dense masslike consolidation was present in this region on the more remote chest CT from 03/06/2021. 3. Emphysema. Stable exam with nonenlarged retroperitoneal nodes. No intra-abdominal or pelvic metastasis CT Chest and Abd and Pelvis 01/2022: 1. Stable lung findings, with right upper lobe linear and curvilinear scar like opacities intervening small nodular opacities, which may represent chronic scarring, treated tumor or post treatment changes. Tiny left upper lobe nodule noted (visible back to outside chest CT dated 03/16/2021), and may be benign. No new nodules noted. 2. Subcentimeter intrathoracic lymph nodes redemonstrated, although a few of the lymph nodes may measure slightly larger. Attention on follow-up recommended. 3. Emphysema Stable nonenlarged abdominopelvic lymph nodes. No metastatic disease in the abdomen or pelvis. MRI Brain 11/2021: PET Scan 05/2023: 1. Neck: No suspicious hypermetabolic foci 2. Chest: No evidence of FDG avid neoplastic process 3. Abdomen and pelvis: Diffuse anal uptake similar to prior. Clinical correlation. 4. Skeleton: No hypermetabolic osseous lesions MRI Brain 01/2024: No acute intracranial process is noted. No evidence of metastasis in the current study. CT Scan of the Chest and Abdomen and Pelvis 02/2024: No metastatic disease in the abdomen or pelvis. No metastatic disease in the chest. CT Scan of the Chest and Abdomen and Pelvis 08/2024: 1. Cluster of pulmonary nodules in the anterior and medial left lower lobe, measuring up to 1.6 m in size. This is suspicious for bronchogenic carcinoma given patient's clinical history. Would advise further evaluation with PET/CT at this time. 2. There are additional smaller subcentimeter nodules which will be too small for assessment with PET/CT. For example, there is a new 3 mm nodule in the right upper lobe. Would advise a 3 month follow-up chest CT without contrast to assess the smaller nodules, given that they will not be adequately evaluated with the above recommended PET/CT. 1. No evidence of metastatic disease in the abdomen or pelvis. Assessment and Plan: Damon Pollard is a 69 year old year old female here for follow up. Extensive Stage SCLC- Post 3 cycles of Carbo/Etoposide and Atezo with clinical benefit and response clinically and on imaging. She completed 4 cycles of Carbo and Etoposide and Atezo 06/16/2021 and continued single agent Atezo last 01/2022. She was lost to follow up and also taken off study due to compliance issues. Her imaging 08/2024 was reviewed with her and concerning for new cluster of nodules in the LLL, offered a bronch and she could not get a ride to . - PET scan on 10/15/24 showed Metabolically active LEFT lung nodules could be primary or metastatic lesions. Subcentimeter right hilar lymph node with low metabolism, non-specific. - Ordered left lung biopsy with IR at [facility]. Will schedule bronchoscopy EBUS in [place] if we cannot get biopsy with IR. - She cannot do bronchoscopy at [place] as she could not get a ride to . - Schedule MRI brain. - shala Ennis prescription renewed. H/o Meth abuse Irregular bowels and abnormal PET findings but scopes 03/2023 negative both upper and lower- Follows Ditty with GI as well. Trigger finger- refer to hand surgery Anxiety- Significanit anxiety- Limited supply of Ativan Thank you for the kind referral. If there are any questions and or concerns please do not hesitate to contact me at [phone]. Osman Hudson MD Hematology/Medical Oncology [facility] Jenifer Mitchell spent a total of 20 minutes on the date of the service which included preparing to see the patient, [id number] patient care, completing clinical documentation, obtaining and/or reviewing separately obtained history, performing a medically appropriate examination, counseling and educating the patient/family/caregiver and ordering medications, tests, or procedures. CC: MD Shaikh Morgan Rust MD CNPN Observed: 10/22/2024 12:00 AM Status: COMPLETED Source: [facility] Telephone ([email or web address]) DAMON POLLARD ([id number]) 1955 F Date Time Provider Department 10/22/24 [facility] During your visit today, we recorded the following information about you: Abbey Martinez LISW 10/22/2024 2:06 PM Signed SOCIAL WORK FOLLOW UP NOTE: [facility]ER CENTER Date of service: 10/22/24 Damon Pollard is being seen for a follow up social work visit. Today's visit includes: patient TOPICS ADDRESSED: community resources Rec'd call from román Ocampo on [address] [facility] states they will only transport pt [address] or [address] trip. No exceptions. [facility] is farther than 60 miles per their calculations so they cannot transport pt to [facility]. They recommended pt try to get ride thru medicaid. SW spoke with pt after that phone call. Pt keeps stating that the oncologist and RNCC assured her that this SW could get her a ride to [place]. Explained to pt that there is no available transportation in the region to [place], explained multiple times. Pt asking how she is getting to her bronch on the . Pt states she has not transportation. Asked pt who she would be taking to bronch if she had arranged transportation, pt states the transportation equipment painter. Explained to pt that would not be an acceptable person to bring, she needs friends, family, etc. Pt increasingly upset, states she has no one. Provided reassurance to pt that there are other oncologists and infusion sites much closer to her home that [facility] would transport her to. Pt crying, states she has to see Dr. Reyna. Asked pt if she contacted medicaid for transport, pt states she will not use them because she potentially would have to wait hours for a return waste collection driver. RNCC aware of the above. PLAN: Continue follow up as needed F/U APPOINTMENT: PRN Assigned SW listed in Care Team tab: Yes MATT Ma Allergies As of Date: 10/22/2024 Noted Allergy Reaction AZITHROMYCIN 02/22/2024 7 - Swelling ERYTHROMYCIN 12/30/2020 4 - Hives Date Reviewed: 09/20/2024 Reviewed by: Apolinar Reyna MD - Fully Assessed Prescriptions as of 10/22/2024 - LORazepam (ATIVAN) 1 mg tablet Take 1 tablet by mouth every 8 hours as needed for up to 14 days. - ibuprofen (MOTRIN) 800 mg tablet Take 1 tablet by mouth every 6 hours. - QUEtiapine (SEROQUEL) 200 mg tablet Take 1 tablet by mouth daily at bedtime. - meclizine (ANTIVERT) 25 mg tab Take 1 tablet by mouth three times a day as needed. - mirtazapine (REMERON) 15 mg tablet take 1 tablet by mouth at bedtime - CONSTULOSE 10 gram/15 mL solution take 15 milliliters by mouth twice a day if needed - zolpidem (AMBIEN) 10 mg Take 10 mg by mouth once daily. - SPIRIVA RESPIMAT 2.5 mcg/actuation inhaler inhale 2 puffs INTO THE LUNGS once daily - busPIRone HCl 30 mg tablet Take 30 mg by mouth q 12 HR. - SYMBICORT 160-4.5 mcg/actuation inhaler Inhale 2 Puffs as instructed twice daily. - albuterol HFA (VENTOLIN HFA) 90 mcg/actuation inhaler Inhale as instructed. Problem List As Of Date 10/22/2024 Noted Resolved Small cell lung cancer, right lower lobe (HCC) *03/16/2021 Severe protein-calorie malnutrition (HCC) [E43] 04/14/2021 Bipolar disorder (HCC) [F31.9] 06/14/2023 Encounter Status:Closed by ABBEY MARTINEZ on 10/22/24 CNPN Observed: 10/21/2024 12:00 AM Status: COMPLETED Source: [facility] Telephone (HEMAVN) DAMON POLLARD ([id number]) 1955 F Date Time Provider Department 10/21/24 ABBEY MARTINEZ [facility] During your visit today, we recorded the following information about you: Abbey Martinez LISW 10/21/2024 4:05 PM Signed SOCIAL WORK FOLLOW UP NOTE: CANCER CENTER Date of service: 10/21/24 Damon Pollard is being seen for a follow up social work visit. Today's visit includes: patient TOPICS ADDRESSED: community resources Contacted pt at [facility] request d/t pt concerns about transportation. Pt well versed in her transportation through [employer] and arranges as needed. Updated her that there isn't any transportation provided by the clinic. She is familiar with [facility] for cancer patients - she thinks its been a couple years since she received a gift card from them. SW will investigate further. Pt appreciative. PLAN: Continue follow up as needed and Referral to community resource F/U APPOINTMENT: PRN Assigned SW listed in Care Team tab: Yes MATT Ma Allergies As of Date: 10/21/2024 Noted Allergy Reaction AZITHROMYCIN 02/22/2024 7 - Swelling ERYTHROMYCIN 12/30/2020 4 - Hives Date Reviewed: 09/20/2024 Reviewed by: Apolinar Reyna MD - Fully Assessed Prescriptions as of 10/21/2024 - LORazepam (ATIVAN) 1 mg tablet Take 1 tablet by mouth every 8 hours as needed for up to 14 days. - ibuprofen (MOTRIN) 800 mg tablet Take 1 tablet by mouth every 6 hours. - QUEtiapine (SEROQUEL) 200 mg tablet Take 1 tablet by mouth daily at bedtime. - meclizine (ANTIVERT) 25 mg tab Take 1 tablet by mouth three times a day as needed. - mirtazapine (REMERON) 15 mg tablet take 1 tablet by mouth at bedtime - CONSTULOSE 10 gram/15 mL solution take 15 milliliters by mouth twice a day if needed - zolpidem (AMBIEN) 10 mg Take 10 mg by mouth once daily. - SPIRIVA RESPIMAT 2.5 mcg/actuation inhaler inhale 2 puffs INTO THE LUNGS once daily - busPIRone HCl 30 mg tablet Take 30 mg by mouth q 12 HR. - SYMBICORT 160-4.5 mcg/actuation inhaler Inhale 2 Puffs as instructed twice daily. - albuterol HFA (VENTOLIN HFA) 90 mcg/actuation inhaler Inhale as instructed. Problem List As Of Date 10/21/2024 Noted Resolved Small cell lung cancer, right lower lobe (HCC) *03/16/2021 Severe protein-calorie malnutrition (HCC) [E43] 04/14/2021 Bipolar disorder (HCC) [F31.9] 06/14/2023 Encounter Status:Closed by ABBEY MARTINEZ on 10/21/24 ONIEL Observed: 10/21/2024 12:00 AM Status: COMPLETED Source: [facility] Telephone (HEMAVN) DAMON POLLARD ([id number]) 1955 F Date Time Provider Department 10/21/24 TEMI BRENNAN During your visit today, we recorded the following information about you: Temi Brennan RN 10/21/2024 10:15 AM Signed NEEDS OV Dr Reyna week of 11/04 (home) Please call with appt Faby Carr 10/21/2024 1:29 PM Signed Patient scheduled for follow up Temi Brennan RN 10/22/2024 4:36 PM Signed Spoke with patient who is unhappy that her insurance will not provide a ride to [facility]/ [facility] locations for treatment of her lung cancer. Reassured that as unfortunate as this is that she can no longer see Dr Reyna there are excellent providers with her original team in [place] for continued follow up. She is requesting that her appts all be cancelled until she can establish with provider in [place] due to transportation issues. Sent Hem/Onc [place] team message to call pt with appt for transfer of care. [phone] (home) Daina Avalos HUC 10/23/2024 8:56 AM Signed I called the Patient and had to leave a voicemail for her to call us back to get her scheduled with one of our Providers here in [place] for her Transfer of Care. RADHA Jordan Autumn, HUC 10/24/2024 9:55 AM Signed The Patient called back and have her scheduled for her SOCRATES from Dr. Reyna to Dr. Hudson here in [place] on 10/29/24 at 130 pm. RADHA Jordan Allergies As of Date: 10/21/2024 Noted Allergy Reaction AZITHROMYCIN 02/22/2024 7 - Swelling ERYTHROMYCIN 12/30/2020 4 - Hives Date Reviewed: 09/20/2024 Reviewed by: Apolinar Reyna MD - Fully Assessed Reason for Visit: Appointment [186] Prescriptions as of 10/24/2024 - LORazepam (ATIVAN) 1 mg tablet Take 1 tablet by mouth every 8 hours as needed for up to 14 days. - ibuprofen (MOTRIN) 800 mg tablet Take 1 tablet by mouth every 6 hours. - QUEtiapine (SEROQUEL) 200 mg tablet Take 1 tablet by mouth daily at bedtime. - meclizine (ANTIVERT) 25 mg tab Take 1 tablet by mouth three times a day as needed. - mirtazapine (REMERON) 15 mg tablet take 1 tablet by mouth at bedtime - CONSTULOSE 10 gram/15 mL solution take 15 milliliters by mouth twice a day if needed - zolpidem (AMBIEN) 10 mg Take 10 mg by mouth once daily. - SPIRIVA RESPIMAT 2.5 mcg/actuation inhaler inhale 2 puffs INTO THE LUNGS once daily - busPIRone HCl 30 mg tablet Take 30 mg by mouth q 12 HR. - SYMBICORT 160-4.5 mcg/actuation inhaler Inhale 2 Puffs as instructed twice daily. - albuterol HFA (VENTOLIN HFA) 90 mcg/actuation inhaler Inhale as instructed. Problem List As Of Date 10/21/2024 Noted Resolved Small cell lung cancer, right lower lobe (HCC) *03/16/2021 Severe protein-calorie malnutrition (HCC) [E43] 04/14/2021 Bipolar disorder (HCC) [F31.9] 06/14/2023 Encounter Status:Closed by TEMI BRENNAN on 10/21/24 PROGRESS Observed: 10/18/2024 2:58 PM Status: COMPLETED Source: [facility] HNO ID: [id number] Author: SABRINA BERRIOS RN Service: ? Author Type: Registered Nurse Type: Progress Notes Filed: 10/18/2024 14:58 Note Text: Bronchoscopy Request: Procedure Date 10/29 Location: [facility]: [address] [place] [address] Check in: 1st floor Registration Arrival time: Will receive call the day prior to the procedure Parking: [employer], or adjacent Parking garage Advised patient NPO after midnight from evening prior, through procedure time Patient will need a waste collection driver Scheduling needs: New consult: scheduled on 10/28 Communication of medication: NA Provided patient with office number, time to ask questions, and write down information. [phone] PROGRESS Observed: 10/17/2024 3:18 PM Status: COMPLETED Source: [facility] HNO ID: [id number] Author: SABRINA BERRIOS, WILMAN Service: ? Author Type: Physician Type: Progress Notes Filed: 10/18/2024 14:58 Note Text: Bronchoscopy Request: Please schedule patient for the following: Bronchoscopy Procedures: EBUS staging Pre-Procedure visit required: Yes Visit type: New Consultation Anticipated Procedure Date: 10/29 Physician Performing Bronchoscopy: María Needs Labs: No Needs EKG: No Needs CT: No Does the pt need cardiac clearance? No Is patient on anticoagulants/anti-plt therapy? No Is patient on GLP-1 agonsits (ie Ozempic, Mounjaro, Trulicity, etc)? No Is patient on SGLT2 inhibitors (?-flozin? drugs - Jardiance, etc)? No PACC visit needed No Diagnosis/Reason for Bronchoscopy: LLL nodule in B6, diagnosis and staging Referred by: Brenda Reviewed by: MARK Garcia MD October 17, 2024 3:21 PM CNPN Observed: 10/17/2024 12:00 AM Status: COMPLETED Source: [facility] Telephone (HEMAVN) DAMON POLLARD ([id number]) 1955 F Date Time Provider Department 10/17/24 TEMI BRENNAN During your visit today, we recorded the following information about you: Temi Brennan, RN 10/17/2024 11:58 AM Signed Pt calling regarding Boost Plus rx to be sent to [facility] for refill. Called ph: [phone] spoke with rep [employer] fax form for Dr Reyna to complete Tahira Abdi MA 10/21/2024 9:29 AM Signed Form was faxed on 10/17. Tahira Abdi MA 10/21/2024 10:03 AM Signed Called patient and got the voice mail. Left detailed message stating Rx was faxed on 10/17. Allergies As of Date: 10/17/2024 Noted Allergy Reaction AZITHROMYCIN 02/22/2024 7 - Swelling ERYTHROMYCIN 12/30/2020 4 - Hives Date Reviewed: 09/20/2024 Reviewed by: Apolinar Reyna MD - Fully Assessed Reason for Visit: Refill Request [94] Prescriptions as of 10/21/2024 - LORazepam (ATIVAN) 1 mg tablet Take 1 tablet by mouth every 8 hours as needed for up to 14 days. - ibuprofen (MOTRIN) 800 mg tablet Take 1 tablet by mouth every 6 hours. - QUEtiapine (SEROQUEL) 200 mg tablet Take 1 tablet by mouth daily at bedtime. - meclizine (ANTIVERT) 25 mg tab Take 1 tablet by mouth three times a day as needed. - mirtazapine (REMERON) 15 mg tablet take 1 tablet by mouth at bedtime - CONSTULOSE 10 gram/15 mL solution take 15 milliliters by mouth twice a day if needed - zolpidem (AMBIEN) 10 mg Take 10 mg by mouth once daily. - SPIRIVA RESPIMAT 2.5 mcg/actuation inhaler inhale 2 puffs INTO THE LUNGS once daily - busPIRone HCl 30 mg tablet Take 30 mg by mouth q 12 HR. - SYMBICORT 160-4.5 mcg/actuation inhaler Inhale 2 Puffs as instructed twice daily. - albuterol HFA (VENTOLIN HFA) 90 mcg/actuation inhaler Inhale as instructed. Problem List As Of Date 10/17/2024 Noted Resolved Small cell lung cancer, right lower lobe (HCC) *03/16/2021 Severe protein-calorie malnutrition (HCC) [E43] 04/14/2021 Bipolar disorder (HCC) [F31.9] 06/14/2023 Encounter Status:Closed by TAHIRA ABDI on 10/21/24 NM PET/CT SKULL-THIGH SUBQ Observed: 3:30 PM Status: F Source: [facility] * * *Final Report* * * DATE OF EXAM: Oct 15 2024 3:30PM NRN [id number] - NM PET/CT SKULL-THIGH SUBQ / PROCEDURE REASON: multiple diagnoses * * * * Physician Interpretation * * * * RESULT: EXAMINATION: BODY FDG PET-CT CLINICAL HISTORY: Small cell lung cancer. Follow-up exam. EXAM CATEGORY: Initial treatment strategy. TECHNIQUE: Radiopharmaceutical was administered intravenously followed by PET imaging from the eyes to thighs. Free breathing, low dose CT of the same body region was acquired without IV contrast for attenuation correction and anatomic localization. Unenhanced imaging is limited for the evaluation of some pathology and the acquired CT was not designed to produce diagnostic CT scan quality. Physiologic/non-pathologic uptake in some body regions could confound or obscure some pathology. * CT Dose-Length Product (DLP): 103 mGy*cm * CT Dose Reduction Employed: Yes * Blood glucose: 99 mg/dL * Injection site: Right Forearm-Antecubital * Injected activity: 5.7 mCi * Uptake Time: 62 minutes * Radiopharmaceutical: Q14-Jgnhgtiwdnkxehixte (FDG) COMPARISON: FDG PET/CT 06/06/2023, 10/11/2022 CORRELATION: CT 09/12/2024, 03/06/2024, 03/06/2021 RESULT: REFERENCES: FDG uptake is used as a surrogate marker for glucose metabolism. All reported standardized uptake values represent maximum SUV (SUVmax) per body weight, unless otherwise specified. SUV reference values, as follows: * Blood Pool (Descending Aorta): SUVmax 1.9 * Background Liver: SUVmax 2.4; SUVmean 1.8 Localizer Images: No additional findings. HEAD AND NECK: Head: No radiotracer avid intracranial lesion where imaged within the constraints of physiologic cortical activity. No mass effect in the imaged intracranial compartment. Aerodigestive Tract: Asymmetric radiotracer uptake along the RIGHT eccentric anterior mandibular buccal surface without a discrete CT correlate (SUVmax 7.9; CT image 36). Asymmetric radiotracer uptake along the anterior and LEFT lateral tongue without a discrete CT correlate (SUVmax 8.6), similar to 2022. Fairly symmetric radiotracer uptake elsewhere about the oral cavity and laryngeal apparatus. Multiple areas of likely physiologic uptake about the muscles of mastication. Lymph Nodes: No radiotracer avid lymphadenopathy. Neck Soft Tissues: No radiotracer avid thyroid nodule. CHEST: Lungs and Pleura: Few lung nodules are similar in size to 09/12/2024 but are new from 04/05/2024. Stable scarring in the RIGHT upper lobe without increased rate tracer uptake. Reference lesions as follows:. * 1.1 cm LEFT lower lobe solid nodule (SUVmax 6.5; CT image 91) * 1.7 x 1.4 cm radiotracer avid branching solid nodule/opacity (SUVmax 6.2; CT image 89) * 0.3 cm lateral RIGHT upper lobe without increased radiotracer uptake but may be below resolution of PET (CT image 78) Mediastinum and Lymph Nodes: Ill-defined subcentimeter RIGHT hilar node with low radiotracer uptake (SUVmax 2.7; CT image 87). Cardiovascular: Physiologic blood pool myocardial uptake. No pericardial effusion. Normal heart size. Coronary artery calcifications. Chest Wall: No radiotracer avid soft tissue lesion. ABDOMEN AND PELVIS: Hepatobiliary: No radiotracer avid lesion. No measurable mass. Cholelithiasis. Spleen: No radiotracer avid lesion. No splenomegaly. Pancreas: No radiotracer avid lesion. Adrenals: No radiotracer avid nodule. Urinary Tract: Physiologic radiotracer excretion in the renal collecting systems and urinary bladder. No hydronephrosis. GI Tract: Segmentally increased bowel uptake is likely physiologic or secondary to medication effects (e.g. metformin). No focal radiotracer avid lesion. No dilated bowel. Peritoneum: No radiotracer avid lesion. No ascites. Lymph Nodes: No radiotracer avid lymphadenopathy. Vasculature: Blood pool activity. Vascular calcifications without an abdominal aortic aneurysm. Pelvic Organs: No radiotracer avid lesion. MUSCULOSKELETAL: Bones: No radiotracer avid or destructive osseous lesion. Degenerative changes. Soft Tissues: No radiotracer avid lesion. IMPRESSION PRIMARY DISEASE SITE: * Right upper lobe post-treatment changes without metabolically active recurrent mass. * Metabolically active LEFT lung nodules could be primary or metastatic lesions. FELISHA DISEASE: * Subcentimeter right hilar lymph node with low metabolism, non-specific. METASTATIC DISEASE: * No metabolically active distant extrathoracic metastases. ADDITIONAL FINDINGS: * Asymmetric areas of metabolic activity along the left tongue and right eccentric mandibular buccal surface in the oral cavity. Correlate with direct visualization to exclude underlying mucosal lesions. * Few subcentimeter lung nodules are below may be below resolution of PET, indeterminate. Transcribe Date/Time: Oct 15 2024 3:51P Dictated by: WILLIAN SANTIAGO DO This examination was interpreted and the report reviewed and electronically signed by: WILLIAN SANTIAGO DO on Oct 15 2024 4:15PM EST Thank you for allowing us to participate in the care of your patient. Should there be any questions regarding this interpretation, please call [phone]. If you are unable to reach us at the number above, please feel free to contact [facility] at [phone]. [id number] PROGRESS Observed: 10/15/2024 1:30 PM Status: COMPLETED Source: [facility] HNO ID: [id number] Author: FANTA BARNETT RN Service: ? Author Type: Registered Nurse Type: Progress Notes Filed: 10/15/2024 13:48 Note Text: Radiology Service Progress Note DATE OF SERVICE: October 15, 2024 TIME: 1:48 PM PATIENT WEIGHT: 100LBS PATIENT IDENTITY VERIFICATION COMPLETED USING TWO (2) STANDARD IDENTIFIERS: Name and Date of confirmed by patient verbally. FALL SCREENING: Has the patient had 2 falls in the last year or 1 fall with injury or currently using an Ambulatory Assistive Device (Walker, Cane, Wheelchair, Crutches, etc.)? No PATIENT GENDER DATA: Assigned female at . status: : No status: NO. ALLERGIES: Reviewed and unchanged CONTRAST ALLERGY: No EXAM: CT -CONTRAST INDUCED NEPHROPATHY RISK FACTORS: Not applicable CREATININE: Creatinine Date Value Ref Range Status 09/12/2024 0.64 0.58 - 0.96 mg/dL Final 03/06/2024 0.57 (L) 0.58 - 0.96 mg/dL Final 10/20/2023 0.60 0.58 - 0.96 mg/dL Final Estimated Glomerular Filtration Rate Date Value Ref Range Status 09/12/2024 96 >=60 mL/min/1.73m? Final Comment: Estimated Glomerular Filtration Rate (eGFR) is calculated using the 2020 CKD-EPI creatinine equation. This equation utilizes serum creatinine, sex, and age as parameters. The creatinine assay has traceable calibration to isotope dilution-mass spectrometry. Refer to KDIGO guidelines for clinical interpretation. In patients with unstable renal function, e.g. those with acute kidney injury, the eGFR may not accurately reflect actual GFR. eGFR- Date Value Ref Range Status 08/12/2021 >60 Final P.O.C.T. RESULTS: POC done: Yes, See Lab Tab October 15, 2024 TREATMENT: N/A IV SITE: Ambulatory: A peripheral IV was started in the Right hand with a Angio cath: 22 gauge. IV SITE APPEARANCE: Clean,Dry and Intact SIGNATURE: Fanta Barnett RN PATIENT NAME: Damon Pollard DATE: October 15, 2024 TIME: 1:48 PM PROGRESS Observed: 10/15/2024 1:30 PM Status: COMPLETED Source: [facility] HNO ID: [id number] Author: CINDI TOLENTINO RT([place]) Service: ? Author Type: Technologist Type: Progress Notes Filed: 10/15/2024 15:08 Note Text: RADIOLOGY SERVICE PROGRESS NOTE SERVICE DATE: 10/15/2024 SERVICE TIME: 3:08 PM PATIENT IDENTITY VERIFICATION COMPLETED USING TWO (2) STANDARD IDENTIFIERS: Name and Date of confirmed by patient verbally POST EXAM PIV STATUS: Discontinued PROCEDURE TYPE: NM INJECT: PET/CT BODY SCAN. 5.7 mCi F18 FDG. Administered By: . No other medications given.. ADMINISTRATION TIME: 1358 PATIENT DISCHARGED TO: Ambulatory patient, left NM department area. Is this a therapy: No A Diagnostic radioactive procedure has taken place, with no further precautions necessary other than routine body substance precautions. More information regarding radiation safety can be found using this link: [email or web address] SIGNATURE: RT Yoon([place]) PATIENT NAME: Damon Pollard DATE: October 15, 2024 TIME: 3:08 PM PAGER/CONTACT #: [email or web address] Observed: 10/01/2024 12:00 AM Status: COMPLETED Source: [facility] Telephone (HEMAVN) SARABJITDAMON ([id number]) 1955 F Date Time Provider Department 10/01/24 APOLINAR REYNA During your visit today, we recorded the following information about you: Temi Brennan RN 10/01/2024 12:00 PM Signed Pt requesting refill of Ativan 1mg every 8 hours prn and ibuprofen 800mg every 6 hours prn Patient phones requesting refills as follows: Requested Prescriptions Pending Prescriptions Disp Refills LORazepam (ATIVAN) 1 mg tablet 30 tablet 0 Sig: Take 1 tablet by mouth every 8 hours as needed for up to 14 days. ibuprofen (MOTRIN) 800 mg tablet 120 tablet 0 Sig: Take 1 tablet by mouth every 6 hours. Allergies As of Date: 10/01/2024 Noted Allergy Reaction AZITHROMYCIN 02/22/2024 7 - Swelling ERYTHROMYCIN 12/30/2020 4 - Hives Date Reviewed: 09/20/2024 Reviewed by: Apolinar Reyna MD - Fully Assessed Primary Visit Diagnosis:Pain of finger of left hand [M79.645] Other Visit Diagnoses:Malignant neoplasm of unspecified part of unspecified bronchus or lung (HCC) [C34.90] Anxiety [F41.9] Order(s):LORazepam (ATIVAN) 1 mg tabletTake 1 tablet by mouth every 8 hours as needed for up to 14 days.Disp: 30 tabletRfl: 0 ibuprofen (MOTRIN) 800 mg tabletTake 1 tablet by mouth every 6 hours.Disp: 120 tabletRfl: 0 Prescriptions as of 10/01/2024 - LORazepam (ATIVAN) 1 mg tablet Take 1 tablet by mouth every 8 hours as needed for up to 14 days. - ibuprofen (MOTRIN) 800 mg tablet Take 1 tablet by mouth every 6 hours. - QUEtiapine (SEROQUEL) 200 mg tablet Take 1 tablet by mouth daily at bedtime. - meclizine (ANTIVERT) 25 mg tab Take 1 tablet by mouth three times a day as needed. - mirtazapine (REMERON) 15 mg tablet take 1 tablet by mouth at bedtime - CONSTULOSE 10 gram/15 mL solution take 15 milliliters by mouth twice a day if needed - zolpidem (AMBIEN) 10 mg Take 10 mg by mouth once daily. - SPIRIVA RESPIMAT 2.5 mcg/actuation inhaler inhale 2 puffs INTO THE LUNGS once daily - busPIRone HCl 30 mg tablet Take 30 mg by mouth q 12 HR. - SYMBICORT 160-4.5 mcg/actuation inhaler Inhale 2 Puffs as instructed twice daily. - albuterol HFA (VENTOLIN HFA) 90 mcg/actuation inhaler Inhale as instructed. Problem List As Of Date 10/01/2024 Noted Resolved Small cell lung cancer, right lower lobe (HCC) *03/16/2021 Severe protein-calorie malnutrition (HCC) [E43] 04/14/2021 Bipolar disorder (HCC) [F31.9] 06/14/2023 Prescriptions ordered this encounter Disp Refills Start End LORAZEPAM 1 MG TABLET 30 t* 0 10/01/2024 10/15/2024 Route: ORAL Sig: Take 1 tablet by mouth every 8 hours as needed for up to 14 days. IBUPROFEN 800 MG TABLET 120 * 0 10/01/2024 Route: ORAL Sig: Take 1 tablet by mouth every 6 hours. Medications Discontinued During This Encounter Prescriptions - ibuprofen (MOTRIN) 600 mg tablet (Discontinued) Take by mouth. - LORazepam (ATIVAN) 1 mg tablet (Discontinued) Take 1 tablet by mouth every 8 hours as needed for up to 14 days. Encounter Status:Closed by APOLINAR REYNA on 10/01/24 CNPN Observed: 10/01/2024 12:00 AM Status: COMPLETED Source: [facility] Telephone (HEMAVN) DAMON POLLARD ([id number]) 1955 F Date Time Provider Department 10/01/24 TEMI BRENNAN During your visit today, we recorded the following information about you: Temi Brennan, RN 10/01/2024 1:42 PM Signed Kelvin from [facility] ph: [phone] ext [phone] calling for creatinine blood lab order prior to having CT with contrast scheduled 10/19/24. Please fax order for labs to [phone] Order faxed as directed Allergies As of Date: 10/01/2024 Noted Allergy Reaction AZITHROMYCIN 02/22/2024 7 - Swelling ERYTHROMYCIN 12/30/2020 4 - Hives Date Reviewed: 09/20/2024 Reviewed by: Apolinar Reyna MD - Fully Assessed Primary Visit Diagnosis:Malignant neoplasm of unspecified part of unspecified bronchus or lung (HCC) [C34.90] Order(s):CREATININE BLD [SQCRET] Order #: [id number] FUTURE Prescriptions as of 10/01/2024 - LORazepam (ATIVAN) 1 mg tablet Take 1 tablet by mouth every 8 hours as needed for up to 14 days. - ibuprofen (MOTRIN) 800 mg tablet Take 1 tablet by mouth every 6 hours. - QUEtiapine (SEROQUEL) 200 mg tablet Take 1 tablet by mouth daily at bedtime. - meclizine (ANTIVERT) 25 mg tab Take 1 tablet by mouth three times a day as needed. - mirtazapine (REMERON) 15 mg tablet take 1 tablet by mouth at bedtime - CONSTULOSE 10 gram/15 mL solution take 15 milliliters by mouth twice a day if needed - zolpidem (AMBIEN) 10 mg Take 10 mg by mouth once daily. - SPIRIVA RESPIMAT 2.5 mcg/actuation inhaler inhale 2 puffs INTO THE LUNGS once daily - busPIRone HCl 30 mg tablet Take 30 mg by mouth q 12 HR. - SYMBICORT 160-4.5 mcg/actuation inhaler Inhale 2 Puffs as instructed twice daily. - albuterol HFA (VENTOLIN HFA) 90 mcg/actuation inhaler Inhale as instructed. Problem List As Of Date 10/01/2024 Noted Resolved Small cell lung cancer, right lower lobe (HCC) *03/16/2021 Severe protein-calorie malnutrition (HCC) [E43] 04/14/2021 Bipolar disorder (HCC) [F31.9] 06/14/2023 Encounter Status:Closed by TEMI BRENNAN on 10/01/24 ONIEL Observed: 09/27/2024 12:00 AM Status: COMPLETED Source: [facility] Telephone (HEMAVN) CONSTANTINEDAMON AGUILAR ([id number]) 1955 F Date Time Provider Department 09/27/24 APOLINAR REYNA During your visit today, we recorded the following information about you: Didi Castañeda 09/30/2024 9:04 AM Addendum Patient called into [facility] office regarding the order for: CONSULT PANEL TO ORTHOPAEDICS Patient was upset because she was told that this order would be sent to [facility] [place] [facility] because the [facility] in [place] does not have an Ortho department and she did not want to travel further to stay with [facility] for Ortho. She is claiming that the order was never sent and she has not been able to schedule the appointment. Patient is insistent that action be taken as soon as possible because of her current level of pain. Patient asks that our office fax the order for the Ortho Consult to the [facility] in [place]. Currently looking for fax number, will update this encounter if it is located. EDIT: Fax number located: [phone] Temi Brennan RN 09/30/2024 9:52 AM Signed Order faxed with insurance face sheet as directed. Left pt VM regarding above. Allergies As of Date: 09/27/2024 Noted Allergy Reaction AZITHROMYCIN 02/22/2024 7 - Swelling ERYTHROMYCIN 12/30/2020 4 - Hives Date Reviewed: 09/20/2024 Reviewed by: Apolinar Reyna MD - Fully Assessed Prescriptions as of 09/30/2024 - LORazepam (ATIVAN) 1 mg tablet Take 1 tablet by mouth every 8 hours as needed for up to 14 days. - QUEtiapine (SEROQUEL) 200 mg tablet Take 1 tablet by mouth daily at bedtime. - meclizine (ANTIVERT) 25 mg tab Take 1 tablet by mouth three times a day as needed. - mirtazapine (REMERON) 15 mg tablet take 1 tablet by mouth at bedtime - CONSTULOSE 10 gram/15 mL solution take 15 milliliters by mouth twice a day if needed - zolpidem (AMBIEN) 10 mg Take 10 mg by mouth once daily. - SPIRIVA RESPIMAT 2.5 mcg/actuation inhaler inhale 2 puffs INTO THE LUNGS once daily - busPIRone HCl 30 mg tablet Take 30 mg by mouth q 12 HR. - SYMBICORT 160-4.5 mcg/actuation inhaler Inhale 2 Puffs as instructed twice daily. - albuterol HFA (VENTOLIN HFA) 90 mcg/actuation inhaler Inhale as instructed. - ibuprofen (MOTRIN) 600 mg tablet Take by mouth. Problem List As Of Date 09/27/2024 Noted Resolved Small cell lung cancer, right lower lobe (HCC) *03/16/2021 Severe protein-calorie malnutrition (HCC) [E43] 04/14/2021 Bipolar disorder (HCC) [F31.9] 06/14/2023 Encounter Status:Closed by TEMI BRENNAN on 09/30/24 PROGRESS Observed: 09/24/2024 7:05 AM Status: COMPLETED Source: [facility] HNO ID: [id number] Author: APOLINAR REYNA MD Service: ? Author Type: Physician Type: Progress Notes Filed: 09/24/2024 22:25 Note Text: Summary: Thoracic Tumor Board It is the responsibility of the presenting physician to facilitate any and all recommendations discussed during Thoracic Tumor Board if they are to be implemented into the patients plan of care. Pending Staff Approval [facility] THORACIC TUMOR BOARD: September 24, 2024 Presenting Physician(s): Dr. Apolinar Reyna Damon Pollard 69 year old [id number] Staff in Attendance: Staff representing all Thoracic Oncology Disciplines present Type of Review: Initial Review Pathology Review: No Radiology Review: Yes Tobacco Use: Last attempt to quit 03/02/2021. Types: Cigarettes PMH: PAST MEDICAL HISTORY Diagnosis Date Bipolar 2 disorder (HCC) Generalized anxiety disorder H/O emphysema (HCC) Hepatitis Hypokalemia Low back pain Lung cancer (HCC) Menopause Patient reports she was 41 at the time of onset Mixed hyperlipidemia Osteopenia Seizure disorder (HCC) HPI: 69 year old female Diagnosis: History of SCLC, extensive stage. Post Chemo and Immunotherapy stopped 01/2022. Increasing LLL nodules Outcome: The collaborative recommendation was Bronchoscopy and Pulmonary was reviewing images, PET scan scheduled. These recommendations will be communicated to the patient by the presenting physician(s). The above documentation represents the discussion outcomes after review of this patients case during the weekly Thoracic Tumor Board conference. Final treatment planning will be determined by the primary treatment team staff physicians. Signed by:Apolinar Reyna PROGRESS Observed: 09/20/2024 3:59 PM Status: COMPLETED Source: [facility] HNO ID: [id number] Author: APOLINAR REYNA MD Service: ? Author Type: Physician Type: Progress Notes Filed: 09/20/2024 16:30 Note Text: PATIENT NAME: Damon Pollard [facility] NO.: [id number] ATTENDING PHYSICIAN: Apolinar Reyna MD DATE OF SERVICE: September 20, 2024 Some of the elements of this note have been copied from my previous progress note dated 03/14/2024. All the information has been reviewed carefully. Dear Dr. Mora here is an update on a follow up visit on female Damon Pollard at the clinic September 20, 2024 Diagnosis: 1. Extensive stage SCLC Treatment History: 1. Carbo/Etoposide/Atezo 03/24/2021, Chemo ended ( 4 cycles) 06/16/2021- Atezo single agent resumed- last dose 01/25/2022, patient was in shelter- Therapy was not resumed On LU007 and randomized to the observation arm- Taken off stude due to compliance issues 2. Upper scope and a colonoscopy 03/[address] Long which was negative HPI: Damon Pollard is a 69 year old year old female here for follow up. Tremendous amount of anxiety and also L trigger finger,. She also has a baseline cough as she continues to smoke. Breathing the same and also denies amado MCGOVERN and or abdominal pain . PAST MEDICAL HISTORY Diagnosis Date Bipolar 2 disorder (HCC) Generalized anxiety disorder H/O emphysema (HCC) Hepatitis Hypokalemia Low back pain Lung cancer (HCC) Menopause Patient reports she was 41 at the time of onset Mixed hyperlipidemia Osteopenia Seizure disorder (HCC) Social History Tobacco Use Smoking status: Some Days Current packs/day: 0.00 Types: Cigarettes Last attempt to quit: 03/02/2021 Years since quittin.5 Passive exposure: Never Smokeless tobacco: Never Vaping Use Vaping status: Never Used Substance Use Topics Alcohol use: Never Drug use: Never FAMILY HISTORY Problem Relation Age of Onset Hypertension Mother Cancer Mother Hypertension Father Cancer Sister Past medical, social and family history reviewed without any changes. REVIEW OF SYSTEMS GENERAL: No weight loss, malaise or fevers. No night sweats. HEENT: Negative for headaches, No changes in hearing or vision, no nose bleeds or other nasal problems. RESPIRATORY: Negative for cough, wheezing and shortness of breath CARDIOVASCULAR: Negative for chest pain, leg swelling and palpitations GI: Negative for abdominal discomfort, blood in stools or black stools and change in bowel habits : Negative for dysuria, frequency and incontinence MUSCULOSKELETAL: Negative for joint pain or swelling, back pain, and muscle pain. SKIN: Negative for lesions, rash, and itching. HEMATOLOGY/LYMPHOLOGY Negative for prolonged bleeding, bruising easily, and swollen nodes. NEURO: Negative for numbness or tingling of hands/feet. No weakness. PHYSICAL EXAMINATION: BP 134/67 Pulse 73 Temp 98.2 Wt 99 lb 10.4 oz (45.2kg) SpO2 100% Wt 49.4 kg (109 lb) BMI 17.94 kg/m2 Last 3 Encounter Wt Readings: Date: Wt: 03/24/2021 49.4 kg (109 lb) 03/16/2021 50.2 kg (110 lb 9.6 oz) General appearance:ECOG PERFORMANCE STATUS: 1- Restricted in physically strenuous activity. Carries out light duty. Patient in NAD. Skin: Skin color, texture, turgor normal. No rashes or lesions. Eyes: Anicteric sclera. Pupils are equally round and reactive to light. Extraocular movements are intact. Lymph Nodes: No cervical, supraclavicular, axillary or inguinal adenopathy.Reduction in axillary nodes. Oropharynx: Lips, mucosa, and tongue normal. Back: No pain to percussion. Negative SLR test Lungs clear to auscultation, No wheezing or rhonchi Heart: RRR without murmur, gallop, or rubs. Abdomen soft, non-tender. No masses, organomegaly Extremities: No deformities. No edema Neuro: Gait and speech normal. Reflexes normal and symmetric. Muscular strength intact. Sensation grossly intact. Rectal: Deferred : Deferred LABS: Glucose (mg/dL) Date Value 09/12/2024 149 08/12/2021 113 Potassium (mmol/L) Date Value 09/12/2024 3.5 08/12/2021 3.7 Sodium (mmol/L) Date Value 09/12/2024 141 08/12/2021 137 Chloride (mmol/L) Date Value 09/12/2024 107 08/12/2021 103 CO2 (mmol/L) Date Value 09/12/2024 20 08/12/2021 24 Creatinine (mg/dL) Date Value 09/12/2024 0.64 08/12/2021 0.56 BUN (mg/dL) Date Value 09/12/2024 14 08/12/2021 5 Anion Gap (mmol/L) Date Value 09/12/2024 14 08/12/2021 10 Calcium (mg/dL) Date Value 08/12/2021 9.6 Calcium, Total (mg/dL) Date Value 09/12/2024 9.9 Protein, Total (g/dL) Date Value 09/12/2024 7.5 08/12/2021 7.8 Albumin (g/dL) Date Value 09/12/2024 4.7 08/12/2021 4.6 Bilirubin, Total (mg/dL) Date Value 09/12/2024 0.3 08/12/2021 0.4 Alkaline Phosphatase (U/L) Date Value 09/12/2024 87 08/12/2021 96 AST (U/L) Date Value 09/12/2024 16 08/12/2021 16 ALT (U/L) Date Value 09/12/2024 11 08/12/2021 13 WBC Date Value Ref Range Status 09/12/2024 6.01 3.70 - 11.00 k/uL Final RBC Date Value Ref Range Status 09/12/2024 4.10 3.90 - 5.20 m/uL Final Hemoglobin Date Value Ref Range Status 09/12/2024 12.4 11.5 - 15.5 g/dL Final Hematocrit Date Value Ref Range Status 09/12/2024 36.2 36.0 - 46.0 % Final MCV Date Value Ref Range Status 09/12/2024 88.3 80.0 - 100.0 fL Final MCH Date Value Ref Range Status 09/12/2024 30.2 26.0 - 34.0 pg Final MCHC Date Value Ref Range Status 09/12/2024 34.3 30.5 - 36.0 g/dL Final RDW-CV Date Value Ref Range Status 09/12/2024 13.7 11.5 - 15.0 % Final Platelet Count Date Value Ref Range Status 09/12/2024 229 150 - 400 k/uL Final MPV Date Value Ref Range Status 09/12/2024 10.8 9.0 - 12.7 fL Final Abs Neut Date Value Ref Range Status 09/12/2024 2.72 1.45 - 7.50 k/uL Final Lymphocytes % Date Value Ref Range Status 09/12/2024 40.4 % Final Abs Lymph Date Value Ref Range Status 09/12/2024 2.43 1.00 - 4.00 k/uL Final Monocytes % Date Value Ref Range Status 09/12/2024 10.0 % Final Abs [place] Date Value Ref Range Status 09/12/2024 0.60 <0.87 k/uL Final Eosin% Date Value Ref Range Status 01/25/2022 3.5 % Final Abs Eosin Date Value Ref Range Status 09/12/2024 0.20 <0.46 k/uL Final Basophils % Date Value Ref Range Status 09/12/2024 1.0 % Final Abs Baso Date Value Ref Range Status 09/12/2024 0.06 <0.11 k/uL Final PATH: Bronch 01/2021: Imaging: CT Scan of the Chest and Abdomen and Pelvis and MRI Brain 02/2021: CT of the Chest and Abdomen and Pelvis 05/2021: 1. Since 03/06/2021, substantial decrease in infiltrative right lung/hilar neoplasm, compatible with excellent treatment response. There are bandlike and nodular regions of residual soft tissue within the right upper lobe and mediastinum, as detailed within the results section. 2. Near-complete resolution of previously seen axillary and mediastinal lymphadenopathy. 3. Moderate-severe persistent narrowing of the proximal right upper lobe apical segmental bronchus. Mass effect along the right upper lobe bronchial tree has overall still markedly improved. 4. Please refer to concurrently acquired and separately reported chest CT for findings related to the thorax. 1. Since 03/12/2021, resolution of previously seen right adrenal nodule, likely due to treatment response. Both adrenals are now normal in appearance. 2. Decrease in size of previously enlarged retroperitoneal lymph nodes. 3. Resolution of previously seen hypodensity within the liver, which likely represented geographic hepatic steatosis. 4. Please refer to concurrently acquired and separately reported chest CT for findings related to the thorax. CT of the Chest and Abdomen and Pelvis and Brain 07/2021: 1. Interval improvement in the bandlike opacity in the right upper lobe. Right suprahilar soft tissue density is stable. 2. No new lobar consolidation or pleural effusion. 3. Previously described mediastinal and right axillary nodes are either stable or slightly decreased in size when compared to prior study. No new bulky intrathoracic adenopathy. 4. Stable persistent narrowing of the right upper lobe apical segmental Bronchus. 1. Several subcentimeter retroperitoneal lymph nodes are again identified, stable from prior study of 05/21/2021. No substantial intra-abdominal or pelvic lymphadenopathy is appreciated. 2. Incidental note is again made of cholelithiasis. No CT evidence of intracranial metastatic disease. CT of the Chest and Abdomen and Pelvis 09/2021: 1. Stable soft tissue in the mediastinal and right hilar regions since 07/29/2021, likely representing treated neoplastic lymphadenopathy in this patient with a history of small cell lung cancer. Bulky lymphadenopathy was present in in these regions on the more remote chest CT from 03/06/2021. No new thoracic lymphadenopathy. 2. Stable right upper lobe pulmonary nodular density since 07/29/2021 which may represent treated neoplasm versus radiation pneumonitis/fibrosis. No new or enlarging pulmonary nodule. Dense masslike consolidation was present in this region on the more remote chest CT from 03/06/2021. 3. Emphysema. Stable exam with nonenlarged retroperitoneal nodes. No intra-abdominal or pelvic metastasis CT Chest and Abd and Pelvis 01/2022: 1. Stable lung findings, with right upper lobe linear and curvilinear scar like opacities intervening small nodular opacities, which may represent chronic scarring, treated tumor or post treatment changes. Tiny left upper lobe nodule noted (visible back to outside chest CT dated 03/16/2021), and may be benign. No new nodules noted. 2. Subcentimeter intrathoracic lymph nodes redemonstrated, although a few of the lymph nodes may measure slightly larger. Attention on follow-up recommended. 3. Emphysema Stable nonenlarged abdominopelvic lymph nodes. No metastatic disease in the abdomen or pelvis. MRI Brain 11/2021: PET Scan 05/2023: 1. Neck: No suspicious hypermetabolic foci 2. Chest: No evidence of FDG avid neoplastic process 3. Abdomen and pelvis: Diffuse anal uptake similar to prior. Clinical correlation. 4. Skeleton: No hypermetabolic osseous lesions MRI Brain 01/2024: No acute intracranial process is noted. No evidence of metastasis in the current study. CT Scan of the Chest and Abdomen and Pelvis 02/2024: No metastatic disease in the abdomen or pelvis. No metastatic disease in the chest. CT Scan of the Chest and Abdomen and Pelvis 08/2024: 1. Cluster of pulmonary nodules in the anterior and medial left lower lobe, measuring up to 1.6 m in size. This is suspicious for bronchogenic carcinoma given patient's clinical history. Would advise further evaluation with PET/CT at this time. 2. There are additional smaller subcentimeter nodules which will be too small for assessment with PET/CT. For example, there is a new 3 mm nodule in the right upper lobe. Would advise a 3 month follow-up chest CT without contrast to assess the smaller nodules, given that they will not be adequately evaluated with the above recommended PET/CT. 1. No evidence of metastatic disease in the abdomen or pelvis. Assessment and Plan: Damon Pollard is a 69 year old year old female here for follow up. Extensive Stage SCLC- Post 3 cycles of Carbo/Etoposide and Atezo with clinical benefit and response clinically and on imaging. She completed 4 cycles of Carbo and Etoposide and Atezo 06/16/2021 and continued single agent Atezo last 01/2022. She was lost to follow up and also taken off study due to compliance issues. Her imaging 08/2024 was reviewed with her and concerning for new cluster of nodules in the LLL, offered a bronch and she could not get a ride to [facility]. Await PET scan and also Brain MRI and will also present and review at the next week and contact patient for next steps. H/o Meth abuse Irregular bowels and abnormal PET findings but scopes 03/2023 negative both upper and lower- Follows Ditty with GI as well. Trigger finger- refer to hand surgery Anxiety- Significanit anxiety- Limited supply of Ativan Thank you for the kind referral. If there are any questions and or concerns please do not hesitate to contact me at [phone]. Apolinar Reyna MD Hematology/Medical Oncology [facility] Paula spent a total of 30 minutes on the date of the service which included preparing to see the patient, [id number] patient care, completing clinical documentation, obtaining and/or reviewing separately obtained history, performing a medically appropriate examination, counseling and educating the patient/family/caregiver and ordering medications, tests, or procedures. CC: MD Shaikh Morgan Rust MD CNOVSP Observed: 09/20/2024 2:45 PM Status: COMPLETED Source: [facility] Visit (SP) Office (HEMAVN) DAMON POLLARD ([id number]) 1955 F Date Time Provider Department 09/20/24 2:45 PM APOLINAR REYNA During your visit today, we recorded the following information about you: Temperature Pulse Blood pressure Weight 98.2 degrees 73/minute 134/67 45.2 kg Apolinar Reyna MD 09/20/2024 4:30 PM Signed PATIENT NAME: Damon Pollard CLINIC NO.: [id number] ATTENDING PHYSICIAN: Apolinar Reyna MD DATE OF SERVICE: September 20, 2024 Some of the elements of this note have been copied from my previous progress note dated 03/14/2024. All the information has been reviewed carefully. Dear Dr. Mora here is an update on a follow up visit on female Damon Pollard at the clinic September 20, 2024 Diagnosis: 1. Extensive stage SCLC Treatment History: 1. Carbo/Etoposide/Atezo 03/24/2021, Chemo ended ( 4 cycles) 06/16/2021- Atezo single agent resumed- last dose 01/25/2022, patient was in shelter- Therapy was not resumed On LU007 and randomized to the observation arm- Taken off stude due to compliance issues 2. Upper scope and a colonoscopy 03/[address] Long which was negative HPI: Damon Pollard is a 69 year old year old female here for follow up. Tremendous amount of anxiety and also L trigger finger,. She also has a baseline cough as she continues to smoke. Breathing the same and also denies amado MCGOVERN and or abdominal pain . PAST MEDICAL HISTORY Diagnosis Date Bipolar 2 disorder (HCC) Generalized anxiety disorder H/O emphysema (HCC) Hepatitis Hypokalemia Low back pain Lung cancer (HCC) Menopause Patient reports she was 41 at the time of onset Mixed hyperlipidemia Osteopenia Seizure disorder (HCC) Social History Tobacco Use Smoking status: Some Days Current packs/day: 0.00 Types: Cigarettes Last attempt to quit: 03/02/2021 Years since quittin.5 Passive exposure: Never Smokeless tobacco: Never Vaping Use Vaping status: Never Used Substance Use Topics Alcohol use: Never Drug use: Never FAMILY HISTORY Problem Relation Age of Onset Hypertension Mother Cancer Mother Hypertension Father Cancer Sister Past medical, social and family history reviewed without any changes. REVIEW OF SYSTEMS GENERAL: No weight loss, malaise or fevers. No night sweats. HEENT: Negative for headaches, No changes in hearing or vision, no nose bleeds or other nasal problems. RESPIRATORY: Negative for cough, wheezing and shortness of breath CARDIOVASCULAR: Negative for chest pain, leg swelling and palpitations GI: Negative for abdominal discomfort, blood in stools or black stools and change in bowel habits : Negative for dysuria, frequency and incontinence MUSCULOSKELETAL: Negative for joint pain or swelling, back pain, and muscle pain. SKIN: Negative for lesions, rash, and itching. HEMATOLOGY/LYMPHOLOGY Negative for prolonged bleeding, bruising easily, and swollen nodes. NEURO: Negative for numbness or tingling of hands/feet. No weakness. PHYSICAL EXAMINATION: BP 134/67 Pulse 73 Temp 98.2 Wt 99 lb 10.4 oz (45.2kg) SpO2 100% Wt 49.4 kg (109 lb) BMI 17.94 kg/m2 Last 3 Encounter Wt Readings: Date: Wt: 03/24/2021 49.4 kg (109 lb) 03/16/2021 50.2 kg (110 lb 9.6 oz) General appearance:ECOG PERFORMANCE STATUS: 1- Restricted in physically strenuous activity. Carries out light duty. Patient in NAD. Skin: Skin color, texture, turgor normal. No rashes or lesions. Eyes: Anicteric sclera. Pupils are equally round and reactive to light. Extraocular movements are intact. Lymph Nodes: No cervical, supraclavicular, axillary or inguinal adenopathy.Reduction in axillary nodes. Oropharynx: Lips, mucosa, and tongue normal. Back: No pain to percussion. Negative SLR test Lungs clear to auscultation, No wheezing or rhonchi Heart: RRR without murmur, gallop, or rubs. Abdomen soft, non-tender. No masses, organomegaly Extremities: No deformities. No edema Neuro: Gait and speech normal. Reflexes normal and symmetric. Muscular strength intact. Sensation grossly intact. Rectal: Deferred : Deferred LABS: Glucose (mg/dL) Date Value 09/12/2024 149 08/12/2021 113 Potassium (mmol/L) Date Value 09/12/2024 3.5 08/12/2021 3.7 Sodium (mmol/L) Date Value 09/12/2024 141 08/12/2021 137 Chloride (mmol/L) Date Value 09/12/2024 107 08/12/2021 103 CO2 (mmol/L) Date Value 09/12/2024 20 08/12/2021 24 Creatinine (mg/dL) Date Value 09/12/2024 0.64 08/12/2021 0.56 BUN (mg/dL) Date Value 09/12/2024 14 08/12/2021 5 Anion Gap (mmol/L) Date Value 09/12/2024 14 08/12/2021 10 Calcium (mg/dL) Date Value 08/12/2021 9.6 Calcium, Total (mg/dL) Date Value 09/12/2024 9.9 Protein, Total (g/dL) Date Value 09/12/2024 7.5 08/12/2021 7.8 Albumin (g/dL) Date Value 09/12/2024 4.7 08/12/2021 4.6 Bilirubin, Total (mg/dL) Date Value 09/12/2024 0.3 08/12/2021 0.4 Alkaline Phosphatase (U/L) Date Value 09/12/2024 87 08/12/2021 96 AST (U/L) Date Value 09/12/2024 16 08/12/2021 16 ALT (U/L) Date Value 09/12/2024 11 08/12/2021 13 WBC Date Value Ref Range Status 09/12/2024 6.01 3.70 - 11.00 k/uL Final RBC Date Value Ref Range Status 09/12/2024 4.10 3.90 - 5.20 m/uL Final Hemoglobin Date Value Ref Range Status 09/12/2024 12.4 11.5 - 15.5 g/dL Final Hematocrit Date Value Ref Range Status 09/12/2024 36.2 36.0 - 46.0 % Final MCV Date Value Ref Range Status 09/12/2024 88.3 80.0 - 100.0 fL Final MCH Date Value Ref Range Status 09/12/2024 30.2 26.0 - 34.0 pg Final MCHC Date Value Ref Range Status 09/12/2024 34.3 30.5 - 36.0 g/dL Final RDW-CV Date Value Ref Range Status 09/12/2024 13.7 11.5 - 15.0 % Final Platelet Count Date Value Ref Range Status 09/12/2024 229 150 - 400 k/uL Final MPV Date Value Ref Range Status 09/12/2024 10.8 9.0 - 12.7 fL Final Abs Neut Date Value Ref Range Status 09/12/2024 2.72 1.45 - 7.50 k/uL Final Lymphocytes % Date Value Ref Range Status 09/12/2024 40.4 % Final Abs Lymph Date Value Ref Range Status 09/12/2024 2.43 1.00 - 4.00 k/uL Final Monocytes % Date Value Ref Range Status 09/12/2024 10.0 % Final Abs Charles Mix Date Value Ref Range Status 09/12/2024 0.60 <0.87 k/uL Final Eosin% Date Value Ref Range Status 01/25/2022 3.5 % Final Abs Eosin Date Value Ref Range Status 09/12/2024 0.20 <0.46 k/uL Final Basophils % Date Value Ref Range Status 09/12/2024 1.0 % Final Abs Baso Date Value Ref Range Status 09/12/2024 0.06 <0.11 k/uL Final PATH: Bronch 01/2021: Imaging: CT Scan of the Chest and Abdomen and Pelvis and MRI Brain 02/2021: CT of the Chest and Abdomen and Pelvis 05/2021: 1. Since 03/06/2021, substantial decrease in infiltrative right lung/hilar neoplasm, compatible with excellent treatment response. There are bandlike and nodular regions of residual soft tissue within the right upper lobe and mediastinum, as detailed within the results section. 2. Near-complete resolution of previously seen axillary and mediastinal lymphadenopathy. 3. Moderate-severe persistent narrowing of the proximal right upper lobe apical segmental bronchus. Mass effect along the right upper lobe bronchial tree has overall still markedly improved. 4. Please refer to concurrently acquired and separately reported chest CT for findings related to the thorax. 1. Since 03/12/2021, resolution of previously seen right adrenal nodule, likely due to treatment response. Both adrenals are now normal in appearance. 2. Decrease in size of previously enlarged retroperitoneal lymph nodes. 3. Resolution of previously seen hypodensity within the liver, which likely represented geographic hepatic steatosis. 4. Please refer to concurrently acquired and separately reported chest CT for findings related to the thorax. CT of the Chest and Abdomen and Pelvis and Brain 07/2021: 1. Interval improvement in the bandlike opacity in the right upper lobe. Right suprahilar soft tissue density is stable. 2. No new lobar consolidation or pleural effusion. 3. Previously described mediastinal and right axillary nodes are either stable or slightly decreased in size when compared to prior study. No new bulky intrathoracic adenopathy. 4. Stable persistent narrowing of the right upper lobe apical segmental Bronchus. 1. Several subcentimeter retroperitoneal lymph nodes are again identified, stable from prior study of 05/21/2021. No substantial intra-abdominal or pelvic lymphadenopathy is appreciated. 2. Incidental note is again made of cholelithiasis. No CT evidence of intracranial metastatic disease. CT of the Chest and Abdomen and Pelvis 09/2021: 1. Stable soft tissue in the mediastinal and right hilar regions since 07/29/2021, likely representing treated neoplastic lymphadenopathy in this patient with a history of small cell lung cancer. Bulky lymphadenopathy was present in in these regions on the more remote chest CT from 03/06/2021. No new thoracic lymphadenopathy. 2. Stable right upper lobe pulmonary nodular density since 07/29/2021 which may represent treated neoplasm versus radiation pneumonitis/fibrosis. No new or enlarging pulmonary nodule. Dense masslike consolidation was present in this region on the more remote chest CT from 03/06/2021. 3. Emphysema. Stable exam with nonenlarged retroperitoneal nodes. No intra-abdominal or pelvic metastasis CT Chest and Abd and Pelvis 01/2022: 1. Stable lung findings, with right upper lobe linear and curvilinear scar like opacities intervening small nodular opacities, which may represent chronic scarring, treated tumor or post treatment changes. Tiny left upper lobe nodule noted (visible back to outside chest CT dated 03/16/2021), and may be benign. No new nodules noted. 2. Subcentimeter intrathoracic lymph nodes redemonstrated, although a few of the lymph nodes may measure slightly larger. Attention on follow-up recommended. 3. Emphysema Stable nonenlarged abdominopelvic lymph nodes. No metastatic disease in the abdomen or pelvis. MRI Brain 11/2021: PET Scan 05/2023: 1. Neck: No suspicious hypermetabolic foci 2. Chest: No evidence of FDG avid neoplastic process 3. Abdomen and pelvis: Diffuse anal uptake similar to prior. Clinical correlation. 4. Skeleton: No hypermetabolic osseous lesions MRI Brain 01/2024: No acute intracranial process is noted. No evidence of metastasis in the current study. CT Scan of the Chest and Abdomen and Pelvis 02/2024: No metastatic disease in the abdomen or pelvis. No metastatic disease in the chest. CT Scan of the Chest and Abdomen and Pelvis 08/2024: 1. Cluster of pulmonary nodules in the anterior and medial left lower lobe, measuring up to 1.6 m in size. This is suspicious for bronchogenic carcinoma given patient's clinical history. Would advise further evaluation with PET/CT at this time. 2. There are additional smaller subcentimeter nodules which will be too small for assessment with PET/CT. For example, there is a new 3 mm nodule in the right upper lobe. Would advise a 3 month follow-up chest CT without contrast to assess the smaller nodules, given that they will not be adequately evaluated with the above recommended PET/CT. 1. No evidence of metastatic disease in the abdomen or pelvis. Assessment and Plan: Damon Pollard is a 69 year old year old female here for follow up. Extensive Stage SCLC- Post 3 cycles of Carbo/Etoposide and Atezo with clinical benefit and response clinically and on imaging. She completed 4 cycles of Carbo and Etoposide and Atezo 06/16/2021 and continued single agent Atezo last 01/2022. She was lost to follow up and also taken off study due to compliance issues. Her imaging 08/2024 was reviewed with her and concerning for new cluster of nodules in the LLL, offered a bronch and she could not get a ride to [facility]. Await PET scan and also Brain MRI and will also present and review at the TB next week and contact patient for next steps. H/o Meth abuse Irregular bowels and abnormal PET findings but scopes 03/2023 negative both upper and lower- Follows Ditty with GI as well. Trigger finger- refer to hand surgery Anxiety- Significanit anxiety- Limited supply of Ativan Thank you for the kind referral. If there are any questions and or concerns please do not hesitate to contact me at [phone]. Apolinar Reyna MD Hematology/Medical Oncology [facility] spent a total of 30 minutes on the date of the service which included preparing to see the patient, [id number] patient care, completing clinical documentation, obtaining and/or reviewing separately obtained history, performing a medically appropriate examination, counseling and educating the patient/family/caregiver and ordering medications, tests, or procedures. CC: MD Shaikh Morgan Rust MD Allen, Crystal, DEJA 09/20/2024 4:18 PM Signed Will call after pet Allergies As of Date: 09/20/2024 Noted Allergy Reaction AZITHROMYCIN 02/22/2024 7 - Swelling ERYTHROMYCIN 12/30/2020 4 - Hives Date Reviewed: 09/20/2024 Reviewed by: Apolinar Reyna MD - Fully Assessed Primary Visit Diagnosis:Malignant neoplasm of unspecified part of unspecified bronchus or lung (HCC) [C34.90] Other Visit Diagnoses:Abnormal chest CT [R93.89] Trigger ring finger of left hand [M65.342] Anxiety [F41.9] Order(s):LORazepam (ATIVAN) 1 mg tabletTake 1 tablet by mouth every 8 hours as needed for up to 14 days.Disp: 30 tabletRfl: 0 XR DIGIT GENERAL 3V FRONTAL/LAT/OBL LEFT [8112491] Order #: [id number] FUTURE CONSULT PANEL TO ORTHOPAEDICS [642222] Order #: [id number]: 1 FUTURE QUEtiapine (SEROQUEL) 200 mg tabletTake 1 tablet by mouth daily at bedtime.Disp: 90 tabletRfl: 0 Follow-up and Disposition History for Encounter Date Provider Department Center 09/20/2024 [id number] Prescriptions as of 09/20/2024 - LORazepam (ATIVAN) 1 mg tablet Take 1 tablet by mouth every 8 hours as needed for up to 14 days. - QUEtiapine (SEROQUEL) 200 mg tablet Take 1 tablet by mouth daily at bedtime. - meclizine (ANTIVERT) 25 mg tab Take 1 tablet by mouth three times a day as needed. - mirtazapine (REMERON) 15 mg tablet take 1 tablet by mouth at bedtime - CONSTULOSE 10 gram/15 mL solution take 15 milliliters by mouth twice a day if needed - zolpidem (AMBIEN) 10 mg Take 10 mg by mouth once daily. - SPIRIVA RESPIMAT 2.5 mcg/actuation inhaler inhale 2 puffs INTO THE LUNGS once daily - busPIRone HCl 30 mg tablet Take 30 mg by mouth q 12 HR. - SYMBICORT 160-4.5 mcg/actuation inhaler Inhale 2 Puffs as instructed twice daily. - albuterol HFA (VENTOLIN HFA) 90 mcg/actuation inhaler Inhale as instructed. - ibuprofen (MOTRIN) 600 mg tablet Take by mouth. Problem List As Of Date 09/20/2024 Noted Resolved Small cell lung cancer, right lower lobe (HCC) *03/16/2021 Severe protein-calorie malnutrition (HCC) [E43] 04/14/2021 Bipolar disorder (HCC) [F31.9] 06/14/2023 Other instructions from your clinician: Will call after pet Encounter Status:Closed by APOLINAR REYNA on 09/20/24 PROGRESS Observed: 09/18/2024 2:37 PM Status: COMPLETED Source: [facility] ID: [id number] Author: SABRINA BERRIOS RN Service: ? Author Type: Registered Nurse Type: Progress Notes Filed: 10/18/2024 14:37 Note Text: Patient declined to schedule a bronchoscopy at [place] due to transportation issues. She prefers to have the procedure done closer to home. She lives over an hour away from our facility. Additionally, she does not have [place] to complete a virtual visit. Dr. Serrano and Dr. Garcia aware of the aforementioned information. Sabrina Berrios RN PROGRESS Observed: 09/16/2024 6:04 PM Status: COMPLETED Source: [facility] ID: [id number] Author: OTILIA GARCIA MD Service: ? Author Type: Physician Type: Progress Notes Filed: 09/16/2024 18:07 Note Text: Bronchoscopy Request: Please schedule patient for the following: Bronchoscopy Procedures: EBUS diagnostic Pre-Procedure visit required: Yes Visit type: New Consultation Anticipated Procedure Date: TBD Physician Performing Bronchoscopy: TBD Needs Labs: No Needs EKG: Yes Needs CT: No Does the pt need cardiac clearance? No Is patient on anticoagulants/anti-plt therapy? No Is patient on GLP-1 agonsits (ie Ozempic, Mounjaro, Trulicity, etc)? No Is patient on SGLT2 inhibitors (?-flozin? drugs - Jardiance, etc)? No PACC visit needed No Diagnosis/Reason for Bronchoscopy: History small cell, with nodes/nodules in left intrahilar region. Should be able to access with linear EBUS Referred by: Brenda Reviewed by: MARK Garcia MD September 16, 2024 6:04 PM CNCO Observed: 09/13/2024 12:00 AM Status: COMPLETED Source: [facility] Letter Text CT ABD/PEL W IVCON Observed: 09/12/2024 2:41 PM Status: F Source: [facility] * * *Final Report* * * DATE OF EXAM: Sep 12 2024 2:41PM [facility] 0530 - CT ABD/PEL W IVCON / PROCEDURE REASON: Small cell carcinoma (HCC) * * * * Physician Interpretation * * * * RESULT: EXAMINATION: CT ABDOMEN AND PELVIS WITH IV CONTRAST CLINICAL HISTORY: Small cell carcinoma. TECHNIQUE: CT of the abdomen and pelvis was performed using standard technique, scanning from just above the dome of the diaphragm to the symphysis pubis. MQ: CTAP_3 Contrast: IV: 90 ml of Omnipaque 350 Oral: 500 ml of Omni 240 10-25ml diluted with water CT Radiation dose: Integrated Dose-length product (DLP) for this visit = 402 mGy*cm. CT Dose Reduction Employed: Automated exposure control (AEC) COMPARISON: CT of the abdomen and pelvis with contrast from 03/06/2024 RESULT: Liver: No mass. Biliary: No bile duct dilation. Cholelithiasis with numerous small stones layering throughout the gallbladder. Spleen: No mass. No splenomegaly. Pancreas: No mass or duct dilation. Adrenals: No mass. Kidneys: Subcentimeter lesions that are too small to characterize but likely benign. 2 mm nonobstructing stone in the upper pole of the left kidney. GI tract: No dilation or wall thickening. Lymph nodes: No suspicious abdominal or pelvic lymphadenopathy by size criteria. Scattered subcentimeter retroperitoneal lymph nodes which are stable when compared to multiple prior exams. Mesentery/Peritoneum: No ascites or mass. Pelvis: Prominent parametrial and ovarian veins. This can be seen as an asymptomatic normal variant. However, this can also be seen in the setting of pelvic congestion syndrome when appropriate symptoms are present. Bones/Soft Tissues: Degenerative changes. Lower thorax: A chest CT performed will be reported separately. Localizer images: No additional findings. IMPRESSION: 1. No evidence of metastatic disease in the abdomen or pelvis. Transcribe Date/Time: Sep 12 2024 7:52P Dictated by: MARY BETH ROONEY MD This examination was interpreted and the report reviewed and electronically signed by: MARY BETH ROONEY MD on Sep 12 2024 8:06PM EST Thank you for allowing us to participate in the care of your patient. Should there be any questions regarding this interpretation, please call [phone]. If you are unable to reach us at the number above, please feel free to contact [facility] at [phone]. [id number] CT CHEST W IVCON Observed: 09/12/2024 2:41 PM Status: F Source: [facility] * * *Final Report* * * DATE OF EXAM: Sep 12 2024 2:41PM [facility] 0539 - CT CHEST W IVCON / PROCEDURE REASON: Small cell carcinoma (HCC) * * * * Physician Interpretation * * * * RESULT: EXAMINATION: CHEST CT WITH CONTRAST CLINICAL HISTORY: Small cell lung cancer. Technique: Spiral CT acquisition of the chest from the thoracic inlet to the upper abdomen following IV contrast. MQ: CTCW_6 Contrast: 90 mL Omnipaque [address] Radiation dose: Integrated Dose-length product (DLP) for this visit = 402 mGy*cm CT Dose Reduction Employed: Automated exposure control (AEC) Comparison: Chest CT with contrast from 03/06/2024 RESULT: Limitations: Motion artifact. Lines, tubes, and devices: None. Lung parenchyma and airways: Mild centrilobular and paraseptal emphysema with an upper lobe predominance. Stable linear scarring in the right upper lobe. Cluster of nodules in the anterior and medial left lower lobe. For example, there is a 1.4 cm nodule in the medial left lower lobe on slice 89 of series 4 and a 1.6 cm nodule in the anterior left lower lobe on slice 83 of series 4. There are adjacent small satellite nodules. This is suspicious for echogenic carcinoma given patient's clinical history. Would advise further evaluation at this time with PET/CT. 3 mm nodule in the lateral right upper lobe on slice 62 of series 4, new when compared to the prior exam. Areas of mucous plugging within segmental bronchi to the right lower lobe. Pleural space: No pleural effusion. No pleural thickening. Lower neck, lymph nodes, and mediastinum: No suspicious axillary or mediastinal lymphadenopathy by size criteria. There is a stable nonspecific 1.3 x 0.7 cm right hilar lymph node on slice 79 of series 3. This can be further evaluated the time of patient's PET/CT. Heart, pericardium, and thoracic vessels: No pericardial effusion. Mild coronary artery calcification. Bones and soft tissues: No destructive bone lesion. Chest wall is unremarkable. Upper abdomen: A CT of the abdomen and pelvis was performed and will be reported separately. Localizer images: No additional findings. IMPRESSION: 1. Cluster of pulmonary nodules in the anterior and medial left lower lobe, measuring up to 1.6 m in size. This is suspicious for bronchogenic carcinoma given patient's clinical history. Would advise further evaluation with PET/CT at this time. 2. There are additional smaller subcentimeter nodules which will be too small for assessment with PET/CT. For example, there is a new 3 mm nodule in the right upper lobe. Would advise a 3 month follow-up chest CT without contrast to assess the smaller nodules, given that they will not be adequately evaluated with the above recommended PET/CT. ACTIONABLE RESULT: FOLLOW-UP Acuity: Actionable Findings: Thoracic-Lung nodules Routing code: [id number] Recommendation: PET/CT Time Frame: as soon as possible, when the patient's clinical state allows. COMMUNICATION: Results will be communicated with the ordering provider via [facility] staff message or phone message by [facility] within 2 business days of report finalization. --END OF FINDING-- Algorithms for management of incidental imaging findings can be found on the [facility] Intranet Sharepoint site at: [email or web address] [email or web address] Transcribe Date/Time: Sep 12 2024 8:06P Dictated by: MARY BETH ROONEY MD This examination was interpreted and the report reviewed and electronically signed by: MARY BETH ROONEY MD on Sep 12 2024 8:16PM EST Thank you for allowing us to participate in the care of your patient. Should there be any questions regarding this interpretation, please call [phone]. If you are unable to reach us at the number above, please feel free to contact [facility] eRadiology at [phone]. [id number] ACTIONABLE PROGRESS Observed: 09/12/2024 1:15 PM Status: COMPLETED Source: [facility] HNO ID: [id number] Author: PAUL LONG RN Service: ? Author Type: Registered Nurse Type: Progress Notes Filed: 09/12/2024 13:51 Note Text: Radiology Service Progress Note DATE OF SERVICE: September 12, 2024 TIME: 1:50 PM PATIENT WEIGHT: 100LBS PATIENT IDENTITY VERIFICATION COMPLETED USING TWO (2) STANDARD IDENTIFIERS: Name and Date of confirmed by patient verbally. FALL SCREENING: Has the patient had 2 falls in the last year or 1 fall with injury or currently using an Ambulatory Assistive Device (Walker, Cane, Wheelchair, Crutches, etc.)? No PATIENT GENDER DATA: Assigned female at . status: : No status: NO. ALLERGIES: Reviewed and unchanged CONTRAST ALLERGY: No EXAM: CT -CONTRAST INDUCED NEPHROPATHY RISK FACTORS: Patient age > 60 years CREATININE: Creatinine Date Value Ref Range Status 09/12/2024 0.64 0.58 - 0.96 mg/dL Final 03/06/2024 0.57 (L) 0.58 - 0.96 mg/dL Final 10/20/2023 0.60 0.58 - 0.96 mg/dL Final Estimated Glomerular Filtration Rate Date Value Ref Range Status 09/12/2024 96 >=60 mL/min/1.73m? Final Comment: Estimated Glomerular Filtration Rate (eGFR) is calculated using the 2020 CKD-EPI creatinine equation. This equation utilizes serum creatinine, sex, and age as parameters. The creatinine assay has traceable calibration to isotope dilution-mass spectrometry. Refer to KDIGO guidelines for clinical interpretation. In patients with unstable renal function, e.g. those with acute kidney injury, the eGFR may not accurately reflect actual GFR. eGFR- Date Value Ref Range Status 08/12/2021 >60 Final P.O.C.T. RESULTS: POC done: Yes, See Lab Tab September 12, 2024 TREATMENT: N/A IV SITE: Ambulatory: A peripheral IV was started in the Right hand with a Angio cath: 20 gauge. IV SITE APPEARANCE: Clean,Dry and Intact SIGNATURE: Paul Long RN PATIENT NAME: Damon Pollard DATE: September 12, 2024 TIME: 1:50 PM PROGRESS Observed: 09/12/2024 1:15 PM Status: COMPLETED Source: [facility] HNO ID: [id number] Author: CINDI TOLENTINO RT(R) Service: ? Author Type: Technologist Type: Progress Notes Filed: 09/12/2024 13:46 Note Text: Radiology Service Progress Note PATIENT NAME: Damon Pollard DATE OF SERVICE: September 12, 2024 TIME: 1:45 PM PATIENT IDENTITY VERIFICATION COMPLETED USING TWO (2) IDENTIFIERS: Name and Date of confirmed by patient verbally. FALL SCREENING: Has the patient had 2 falls in the last year or 1 fall with injury or currently using an Ambulatory Assistive Device (Walker, Cane, Wheelchair, Crutches, etc.)? No PATIENT GENDER DATA: Assigned female at . status: : No status: NO. PATIENT RELEVANT IMPLANT DATA REVIEWED: Not Applicable PATIENT PRESENTS WITH AN IMPLANTABLE OR ATTACHED DANCE STUDIO MANAGER: No RADIOLOGY DEPARTMENT: CT; Exam(s) Completed: Chest Abdomen Pelvis PERIPHERAL IV DATA: Site assessment: Clean,Dry and Intact, Site disposition Discontinued SIGNED BY: RT Yoon(R) September 12, 2024 1:45 PM CBC W AUTO DIFF BLD Collected: 09/12/2024 1:[address] atus: F Source: [facility] Order Comment: Specimen Type : BLOOD SPECIMEN Ordering Facility: [facility] Address: [address] [place] [address] TYPE CODE TESTS RESULT OUT OF RANGE REFERENCE UNITS LAB 6690-2(LOINC) WBC # Bld Auto 6.01 3.70-11.00 k/uL LAB 789-8(LOINC) RBC # Bld Auto 4.10 3.90-5.20 m/ uL LAB 718-7(LOINC) Hgb Bld-mCnc 12.4 11.5-15.5 g/dL LAB 4544-3(LOINC) Hct VFr Bld Auto 36.2 36.0-46.0 % LAB 787-2([facility]) MCV RBC Auto 88.3 80.0-100.0 fL LAB 785-6([facility]) MCH RBC Qn Auto 30.2 26.0-34.0 p g LAB 786-4([facility]) MCHC RBC Auto-mCnc 34.3 30.5-36.0 g/dL LAB 27687-6([facility]) RDW RBC-Rto 13.7 11.5-15.0 % LAB 777-3([facility]) Platelet # Bld Auto 229 150-400 k/uL LAB 80552-0([facility]) PMV Bld Auto 10.8 9.0-12.7 fL LAB 770-8([facility]) Neutrophils/leuk NFr Bld Auto 45.3 % LAB 751-8([facility]) Neutrophils # Bld Auto 2.72 1.45-7.50 k/uL LAB 736-9([facility]) Lymphocytes/leuk NFr Bld Auto 40.4 % LAB 731-0([facility]) Lymphocytes # Bld Auto 2.43 1.00-4.00 k/uL LAB 5905-5([facility]) Monocytes/leuk NFr Bld Auto 10.0 % LAB 742-7([facility]) Monocytes # Bld Auto 0.60 <0.87 k/uL LAB 713-8([facility]) Eosinophil/leuk NFr Bld Auto 3.3 % LAB 711-2([facility]) Eosinophil # Bld Auto 0.20 <0.46 k/uL LAB 706-2([facility]) Basophils/leuk NFr Bld Auto 1.0 % LAB 704-7([facility]) Basophils # Bld Auto 0.06 <0.11 k/uL LAB 85484-3([facility]) Imm Granulocytes/freedom k NFr Bld Auto 0.0 % LAB 12817-2([facility]) Imm Granulocytes # Bld Auto <0.03 <0.10 k/uL LAB 77882-0([facility]) nRBC/100 WBC Bld-Rto 0.0 /100 WBC LAB 771-6([facility]) nRBC # Bld Auto <0.01 <0.01 k/u L LAB 64544-6([facility]) Differential method Bld Auto Performed By: #### 93698-0 # ### [facility] CLIA [id number] [address] [place] [address] 398[address] COMP METAB 2000 PNL SERPL Collected: 1:06 PM Status: F Source: [facility] Order Comment: Specimen Type : BLOOD SPECIMEN Ordering Facility: [facility] Address: [address] [place] [address] TYPE CODE TESTS RESULT OUT OF RANGE REFERENCE UNITS LAB 2885-2(LOINC) Prot SerPl-mCnc 7.5 6.3-8.0 g/dL LAB 1751-7(LOINC) Albumin SerPl-mCnc 4.7 3.9-4.9 g/dL LAB 19028-7(LOINC) Calcium SerPl-mCnc 9.9 8.5-10.2 mg/dL LAB 1975-2(LOINC) Bilirub SerPl-mCnc 0.3 0.2-1.3 mg/dL LAB 6768-6(LOINC) ALP SerPl-cCnc 87 34-123 U/L LAB 1920-8(LOINC) AST SerPl-cCnc 16 13-35 U/L LAB 1742-6(LOINC) ALT SerPl-cCnc 11 7-38 U/L LAB 2345-7(LOINC) Glucose SerPl-mCnc 149 High 74-99 mg/dL Result Comment: The [place] [employer] Association (ADA) provides guidance for cutoff values for fasting glucose and random glucose. The ADA defines fasting as no caloric intake for at least 8 hours. Fasting plasma glucose results between 100 to 125 mg/dL indicate increased risk for diabetes (prediabetes). Fasting plasma glucose results greater than or equal to 126 mg/dL meet the criteria for diagnosis of diabetes. In the absence of unequivocal hyperglycemia, results should be confirmed by repeat testing. In a patient with classic symptoms of hyperglycemia or hyperglycemic crisis, random plasma glucose results greater than or equal to 200 mg/dL meet the criteria for diagnosis of diabetes. Reference: Standards of Medical Care in Diabetes 2016, [place] [employer]. Diabetes Care. 2016.39(Suppl 1). LAB 3094-0(LOINC) BUN SerPl-mCnc 14 7-21 mg/ dL LAB 2160-0(LOINC) Creat SerPl-mCnc 0.64 0.58-0.96 mg/dL LAB 2951-2(LOINC) Sodium SerPl-sCnc 141 136-144 mmol/L LAB 2823-3(LOINC) Potassium SerPl-sCnc 3.5 Low 3.7-5.1 mmol/L LAB 2075-0(LOINC) Chloride SerPl-sCnc 107 98-107 mmol/L LAB 2028-9(LOINC) CO2 SerPl-sCnc 20 Low 22-30 mmo l/L LAB 59689-6(LOINC) Anion Gap SerPl-sCnc 14 8-15 mmol/L LAB 90850-2(LOINC) Creatinine + eGFR Pnl SerPlBld 96 >=60 mL/min/1 .73m??? Result Comment: Estimated Gl omerular Filtration Rate (eGFR) is calculated using the 2020 CKD-EPI creatinine equation. This equation utilizes serum creatinine, sex, and age as parameters. The creatinine assay has traceable calibration to isotope dilution-mass spectrometry. Refer to KDIGO guidelines for clinical interpretation. In patients with unstable renal function, e.g. those with acute kidney injury, the eGFR may not accurately reflect actual GFR. Performed By: #### 44741-7 # ### [facility] CLIA [id number] [address] [place], [place] [id number] CNPN Observed: 08/30/2024 12:00 AM Status: COMPLETED Source: [facility] Telephone (HEMTSA) DAMON POLLARD ([id number]) 1955 F Date Time Provider Department 08/30/24 APOLINAR REYNA During your visit today, we recorded the following information about you: Paul Long RN 08/30/2024 9:15 AM Signed Please sign pended labs for 6 month f/u if agreeable-will draw with CT 1 week prior to f/u Thank You! Paul Long RN Allergies As of Date: 08/30/2024 Noted Allergy Reaction AZITHROMYCIN 02/22/2024 7 - Swelling ERYTHROMYCIN 12/30/2020 4 - Hives Date Reviewed: 03/14/2024 Reviewed by: Rupal Dawn MA - Fully Assessed Reason for Visit: Orders [681] Primary Visit Diagnosis:Small cell lung cancer, right lower lobe (HCC) [C34.31] Order(s):COMPREHENSIVE METABOLIC PANEL [SQCMP] Order #: [id number] FUTURE COMPLETE BLOOD COUNT AND DIFFERENTIAL [SQCBCDIF] Order #: [id number] FUTURE Prescriptions as of 09/02/2024 - methylPREDNISolone (MEDROL DOSE-PACK) 4 mg Dose-Pack TAKE 6 TABLETS BY MOUTH DIRECTED ON DAY 1, THEN DECREASE BY 1 TAB DAILY UNTIL FINISHED - meclizine (ANTIVERT) 25 mg tab Take 1 tablet by mouth three times a day as needed. - mirtazapine (REMERON) 15 mg tablet take 1 tablet by mouth at bedtime - CONSTULOSE 10 gram/15 mL solution take 15 milliliters by mouth twice a day if needed - zolpidem (AMBIEN) 10 mg Take 10 mg by mouth once daily. - SPIRIVA RESPIMAT 2.5 mcg/actuation inhaler inhale 2 puffs INTO THE LUNGS once daily - busPIRone HCl 30 mg tablet Take 30 mg by mouth q 12 HR. - QUEtiapine (SEROQUEL) 400 mg tablet Take 400 mg by mouth once daily. - SYMBICORT 160-4.5 mcg/actuation inhaler Inhale 2 Puffs as instructed twice daily. - albuterol HFA (VENTOLIN HFA) 90 mcg/actuation inhaler Inhale as instructed. - ibuprofen (MOTRIN) 600 mg tablet Take by mouth. Problem List As Of Date 08/30/2024 Noted Resolved Small cell lung cancer, right lower lobe (HCC) *03/16/2021 Severe protein-calorie malnutrition (HCC) [E43] 04/14/2021 Bipolar disorder (HCC) [F31.9] 06/14/2023 Encounter Status:Closed by PAUL LONG on 09/02/24 CNPN Observed: 08/19/2024 12:00 AM Status: COMPLETED Source: [facility] Telephone (HEMAVN) CONSTANTINEDAMON AGUILAR ([id number]) 1955 F Date Time Provider Department 08/19/24 JOSUÉ STILL During your visit today, we recorded the following information about you: Josué Still RN 08/19/2024 1:10 PM Signed Received call from Marino from [facility] at [phone]. Patient has allergy to PCN and augmentin ordered. out of the office. Spoke to covering provider Dr. Howell. Hold augmentin per Dr. Howell. If patient still having symptoms to contact PCP. RNCC called [facility], spoke to Dinah. RN made call back to contact number for patient, left voicemail for patient. Contact phone number provided if patient has any questions. Diane Lim, WILMAN 08/19/2024 2:02 PM Signed Pt identified by name and Pt notified of below message and verbalizes understanding. Patient is requesting 10 day supply of Bactrim to [facility] Please advise Josué Still RN 08/19/2024 3:29 PM Signed RN made call back to contact number for patient, unable to reach. Message sent to PCP, patient instructed to call PCP if still having symptoms or wait until Dr. Reyna's returns. Apolinar Reyna MD 08/22/2024 11:10 AM Signed Does she want the Bactrim? Josué Still RN 08/22/2024 11:22 AM Signed Care Coordination Triage Note [facility] [place] Situation: Patient reports Cough/Respiratory Concerns/SOBchronic bronchitis Background: Small cell lung cancer, right lower lobe Chronic bronchitis Assessment: Cough not resolved, intermittent Denies fever/chills Recommendations: 3/6/25 Upon review of medication Per Dr. Reyna, patient directed to: Manage at home. Instructions provided. -Ok to order bactrim x 7 days, routed to Dr. 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 - mirtazapine (REMERON) 15 mg tablet take 1 tablet by mouth at bedtime - CONSTULOSE 10 gram/15 mL solution take 15 milliliters by mouth twice a day if needed - zolpidem (AMBIEN) 10 mg Take 10 mg by mouth once daily. - SPIRIVA RESPIMAT 2.5 mcg/actuation inhaler inhale 2 puffs INTO THE LUNGS once daily - busPIRone HCl 30 mg tablet Take 30 mg by mouth q 12 HR. - QUEtiapine (SEROQUEL) 400 mg tablet Take 400 mg by mouth once daily. - SYMBICORT 160-4.5 mcg/actuation inhaler Inhale 2 Puffs as instructed twice daily. - albuterol HFA (VENTOLIN HFA) 90 mcg/actuation inhaler Inhale as instructed. - ibuprofen (MOTRIN) 600 mg tablet Take by mouth. Problem List As Of Date 08/19/2024 Noted Resolved Small cell lung cancer, right lower lobe (HCC) *03/16/2021 Severe protein-calorie malnutrition (HCC) [E43] 04/14/2021 Bipolar disorder (HCC) [F31.9] 06/14/2023 Encounter Status:Closed by JOSUÉ STILL on 08/19/24 CNPN Observed: 08/08/2024 12:00 AM Status: COMPLETED Source: [facility] Telephone (HEMTSA) DAMON POLLARD ([id number]) 1955 F Date Time Provider Department 08/08/24 FANTA BARNETT HEMEILEEN During your visit today, we recorded the following information about you: Fanta Barnett RN 08/08/2024 3:00 PM Signed An updated cre is needed prior to scan please sign cre thanks! Fanta Barnett RN Allergies As of Date: 08/08/2024 Noted Allergy Reaction AZITHROMYCIN 02/22/2024 7 - Swelling ERYTHROMYCIN 12/30/2020 4 - Hives Date Reviewed: 03/14/2024 Reviewed by: Rupal Dawn MA - Fully Assessed Primary Visit Diagnosis:Small cell lung cancer, right lower lobe (HCC) [C34.31] Order(s):CREATININE BLD [SQCRET] Order #: [id number] FUTURE Prescriptions as of 08/12/2024 - methylPREDNISolone (MEDROL DOSE-PACK) 4 mg Dose-Pack TAKE 6 TABLETS BY MOUTH DIRECTED ON DAY 1, THEN DECREASE BY 1 TAB DAILY UNTIL FINISHED - amoxicillin-clavulanate potassium (AUGMENTIN) 875-125 mg per tablet TAKE ONE TABLET BY MOUTH TWICE A DAY FOR 14 DAYS - meclizine (ANTIVERT) 25 mg tab Take 1 tablet by mouth three times a day as needed. - mirtazapine (REMERON) 15 mg tablet take 1 tablet by mouth at bedtime - CONSTULOSE 10 gram/15 mL solution take 15 milliliters by mouth twice a day if needed - zolpidem (AMBIEN) 10 mg Take 10 mg by mouth once daily. - SPIRIVA RESPIMAT 2.5 mcg/actuation inhaler inhale 2 puffs INTO THE LUNGS once daily - busPIRone HCl 30 mg tablet Take 30 mg by mouth q 12 HR. - QUEtiapine (SEROQUEL) 400 mg tablet Take 400 mg by mouth once daily. - SYMBICORT 160-4.5 mcg/actuation inhaler Inhale 2 Puffs as instructed twice daily. - albuterol HFA (VENTOLIN HFA) 90 mcg/actuation inhaler Inhale as instructed. - ibuprofen (MOTRIN) 600 mg tablet Take by mouth. Problem List As Of Date 08/08/2024 Noted Resolved Small cell lung cancer, right lower lobe (HCC) *03/16/2021 Severe protein-calorie malnutrition (HCC) [E43] 04/14/2021 Bipolar disorder (HCC) [F31.9] 06/14/2023 Encounter Status:Closed by FANTA BARNETT on 08/12/24 ONIEL Observed: 03/15/2024 12:00 AM Status: COMPLETED Source: [facility] Telephone (HEMAVN) DAMON POLLARD ([id number]) 1955 F Date Time Provider Department 03/15/24 JOSUÉ STILL During your visit today, we recorded the following information about you: Josué Still RN 03/19/2024 2:15 PM Addendum Received call from [employer] ([phone]) binder caser regarding motorized scooter. Patient reported to her cost from [employer]. Would be out of pocket unless PCP arranges through process PT evaluation, specific notes to [email or web address] company. Kinsey to proceed through [facility] and speak with patient with updates. Allergies As of Date: 03/15/2024 Noted Allergy Reaction AZITHROMYCIN 02/22/2024 7 - Swelling ERYTHROMYCIN 12/30/2020 4 - Hives Date Reviewed: 03/14/2024 Reviewed by: Rupal aDwn MA - Fully Assessed Reason for Visit: motorized scooter [Other] Prescriptions as of 03/19/2024 - methylPREDNISolone (MEDROL, RY,) 4 mg Dose-Pack Take as instructed per package. - amoxicillin-clavulanate potassium (AUGMENTIN) 875-125 mg per tablet Take 1 tablet by mouth two times a day for 14 days. - mirtazapine (REMERON) 15 mg tablet take 1 tablet by mouth at bedtime - CONSTULOSE 10 gram/15 mL solution take 15 milliliters by mouth twice a day if needed - zolpidem (AMBIEN) 10 mg Take 10 mg by mouth once daily. - SPIRIVA RESPIMAT 2.5 mcg/actuation inhaler inhale 2 puffs INTO THE LUNGS once daily - busPIRone HCl 30 mg tablet Take 30 mg by mouth q 12 HR. - QUEtiapine (SEROQUEL) 400 mg tablet Take 400 mg by mouth once daily. - SYMBICORT 160-4.5 mcg/actuation inhaler Inhale 2 Puffs as instructed twice daily. - albuterol HFA (VENTOLIN HFA) 90 mcg/actuation inhaler Inhale as instructed. - ibuprofen (MOTRIN) 600 mg tablet Take by mouth. Problem List As Of Date 03/15/2024 Noted Resolved Small cell lung cancer, right lower lobe (HCC) *03/16/2021 Severe protein-calorie malnutrition (HCC) [E43] 04/14/2021 Bipolar disorder (HCC) [F31.9] 06/14/2023 Encounter Status:Closed by JOSUÉ STILL on 03/15/24 ONIEL Observed: 03/15/2024 12:00 AM Status: COMPLETED Source: [facility] Telephone (HEMAVN) DAMON POLLARD ([id number]) 1955 F Date Time Provider Department 03/15/24 APOLINAR REYNA During your visit today, we recorded the following information about you: Roro Olson 03/15/2024 10:56 AM Signed Gorge is calling Apolinar Reyna MD today to request motor scooter order. Pt states this needs sent to [facility]. Pt denied knowing fax number just their phone number. Please advise Patient has been identified by name and birthdate. Duration of symptoms: N/A Person calling: self Call patient at: at home [phone] (home) Was an appointment scheduled: No Closing statement: Results or non-symptom based questions: Thank you for calling [facility], your call will be returned within the next business day. Josué Torrez RN 03/15/2024 12:45 PM Signed RN called [employer] for fax Prepped order for Dr. Reyna, routed Josué Still RN 03/15/2024 1:43 PM Signed Tire Repairman faxed DME order to [employer] at [phone] as patient requested . Fax confirmation received. Josué Still RN 03/15/2024 1:47 PM Signed RN made call back to contact number for patient, unable to reach at this time. Clara Mei 03/15/2024 2:18 PM Signed Patient returned call and was given message below. Allergies As of Date: 03/15/2024 Noted Allergy Reaction AZITHROMYCIN 02/22/2024 7 - Swelling ERYTHROMYCIN 12/30/2020 4 - Hives Date Reviewed: 03/14/2024 Reviewed by: Rupal Dawn MA - Fully Assessed Reason for Visit: Orders [681] Prescriptions as of 07/19/2024 - meclizine (ANTIVERT) 25 mg tab Take 1 tablet by mouth three times a day as needed. - mirtazapine (REMERON) 15 mg tablet take 1 tablet by mouth at bedtime - CONSTULOSE 10 gram/15 mL solution take 15 milliliters by mouth twice a day if needed - zolpidem (AMBIEN) 10 mg Take 10 mg by mouth once daily. - SPIRIVA RESPIMAT 2.5 mcg/actuation inhaler inhale 2 puffs INTO THE LUNGS once daily - busPIRone HCl 30 mg tablet Take 30 mg by mouth q 12 HR. - QUEtiapine (SEROQUEL) 400 mg tablet Take 400 mg by mouth once daily. - SYMBICORT 160-4.5 mcg/actuation inhaler Inhale 2 Puffs as instructed twice daily. - albuterol HFA (VENTOLIN HFA) 90 mcg/actuation inhaler Inhale as instructed. - ibuprofen (MOTRIN) 600 mg tablet Take by mouth. Problem List As Of Date 03/15/2024 Noted Resolved Small cell lung cancer, right lower lobe (HCC) *03/16/2021 Severe protein-calorie malnutrition (HCC) [E43] 04/14/2021 Bipolar disorder (HCC) [F31.9] 06/14/2023 Encounter Status:Closed by RORO OLSON on 07/19/24 PROGRESS Observed: 03/14/2024 2:19 PM Status: COMPLETED Source: [facility] HN ID: [id number] Author: APOLINAR REYNA MD Service: ? Author Type: Physician Type: Progress Notes Filed: 03/14/2024 15:02 Note Text: PATIENT NAME: Damon Pollard [facility] NO.: [id number] ATTENDING PHYSICIAN: Apolinar Reyna MD DATE OF SERVICE: March 14, 2024 Some of the elements of this note have been copied from my previous progress note dated 06/14/2023 All the information has been reviewed carefully. Dear Dr. Mora here is an update on a follow up visit on female Damon Pollard at the clinic March 14, 2024 Diagnosis: 1. Extensive stage SCLC Treatment History: 1. Carbo/Etoposide/Atezo 03/24/2021, Chemo ended ( 4 cycles) 06/16/2021- Atezo single agent resumed- last dose 01/25/2022, patient was in shelter- Therapy was not resumed On LU007 and randomized to the observation arm- Taken off stude due to compliance issues 2. Upper scope and a colonoscopy 03/[address] Long which was negative HPI: Damon Pollard is a 69 year old year old female here for follow up. She is doing OK and trying to eat and does get occasional bronchitis and denies any fevers and or [place] PAST MEDICAL HISTORY Diagnosis Date Bipolar 2 disorder (HCC) Generalized anxiety disorder H/O emphysema (HCC) Hepatitis Hypokalemia Low back pain Lung cancer (HCC) Menopause Patient reports she was 41 at the time of onset Mixed hyperlipidemia Osteopenia Seizure disorder (HCC) Social History Tobacco Use Smoking status: Some Days Current packs/day: 0.00 Types: Cigarettes Last attempt to quit: 03/02/2021 Years since quittin.0 Passive exposure: Never Smokeless tobacco: Never Vaping Use Vaping status: Never Used Substance Use Topics Alcohol use: Never Drug use: Never FAMILY HISTORY Problem Relation Age of Onset Hypertension Mother Cancer Mother Hypertension Father Cancer Sister Past medical, social and family history reviewed without any changes. REVIEW OF SYSTEMS GENERAL: No weight loss, malaise or fevers. No night sweats. HEENT: Negative for headaches, No changes in hearing or vision, no nose bleeds or other nasal problems. RESPIRATORY: Negative for cough, wheezing and shortness of breath CARDIOVASCULAR: Negative for chest pain, leg swelling and palpitations GI: Negative for abdominal discomfort, blood in stools or black stools and change in bowel habits : Negative for dysuria, frequency and incontinence MUSCULOSKELETAL: Negative for joint pain or swelling, back pain, and muscle pain. SKIN: Negative for lesions, rash, and itching. HEMATOLOGY/LYMPHOLOGY Negative for prolonged bleeding, bruising easily, and swollen nodes. NEURO: Negative for numbness or tingling of hands/feet. No weakness. PHYSICAL EXAMINATION: BP 130/75 Pulse 94 Temp (Src) 98.6 (Temporal Artery) Resp 16 Ht 5' 5.354 (1.66m) Wt 82 lb 12.5 oz (37.6kg) SpO2 98% BMI 13.63 kg/(m2). Wt 49.4 kg (109 lb) BMI 17.94 kg/m2 Last 3 Encounter Wt Readings: Date: Wt: 03/24/2021 49.4 kg (109 lb) 03/16/2021 50.2 kg (110 lb 9.6 oz) General appearance:ECOG PERFORMANCE STATUS: 1- Restricted in physically strenuous activity. Carries out light duty. Patient in NAD. Skin: Skin color, texture, turgor normal. No rashes or lesions. Eyes: Anicteric sclera. Pupils are equally round and reactive to light. Extraocular movements are intact. Lymph Nodes: No cervical, supraclavicular, axillary or inguinal adenopathy.Reduction in axillary nodes. Oropharynx: Lips, mucosa, and tongue normal. Back: No pain to percussion. Negative SLR test Lungs clear to auscultation, No wheezing or rhonchi Heart: RRR without murmur, gallop, or rubs. Abdomen soft, non-tender. No masses, organomegaly Extremities: No deformities. No edema Neuro: Gait and speech normal. Reflexes normal and symmetric. Muscular strength intact. Sensation grossly intact. Rectal: Deferred : Deferred LABS: Glucose (mg/dL) Date Value 03/06/2024 145 08/12/2021 113 Potassium (mmol/L) Date Value 03/06/2024 4.1 08/12/2021 3.7 Sodium (mmol/L) Date Value 03/06/2024 143 08/12/2021 137 Chloride (mmol/L) Date Value 03/06/2024 111 08/12/2021 103 CO2 (mmol/L) Date Value 03/06/2024 21 08/12/2021 24 Creatinine (mg/dL) Date Value 03/06/2024 0.57 08/12/2021 0.56 BUN (mg/dL) Date Value 03/06/2024 18 08/12/2021 5 Anion Gap (mmol/L) Date Value 03/06/2024 11 08/12/2021 10 Calcium (mg/dL) Date Value 08/12/2021 9.6 Calcium, Total (mg/dL) Date Value 03/06/2024 9.7 Protein, Total (g/dL) Date Value 03/06/2024 7.7 08/12/2021 7.8 Albumin (g/dL) Date Value 03/06/2024 4.9 08/12/2021 4.6 Bilirubin, Total (mg/dL) Date Value 03/06/2024 0.2 08/12/2021 0.4 Alkaline Phosphatase (U/L) Date Value 03/06/2024 80 08/12/2021 96 AST (U/L) Date Value 03/06/2024 16 08/12/2021 16 ALT (U/L) Date Value 03/06/2024 14 08/12/2021 13 WBC Date Value Ref Range Status 03/06/2024 9.08 3.70 - 11.00 k/uL Final RBC Date Value Ref Range Status 03/06/2024 3.61 (L) 3.90 - 5.20 m/uL Final Hemoglobin Date Value Ref Range Status 03/06/2024 11.0 (L) 11.5 - 15.5 g/dL Final Hematocrit Date Value Ref Range Status 03/06/2024 32.2 (L) 36.0 - 46.0 % Final MCV Date Value Ref Range Status 03/06/2024 89.2 80.0 - 100.0 fL Final MCH Date Value Ref Range Status 03/06/2024 30.5 26.0 - 34.0 pg Final MCHC Date Value Ref Range Status 03/06/2024 34.2 30.5 - 36.0 g/dL Final RDW-CV Date Value Ref Range Status 03/06/2024 14.0 11.5 - 15.0 % Final Platelet Count Date Value Ref Range Status 03/06/2024 224 150 - 400 k/uL Final MPV Date Value Ref Range Status 03/06/2024 10.7 9.0 - 12.7 fL Final Abs Neut Date Value Ref Range Status 03/06/2024 8.05 (H) 1.45 - 7.50 k/uL Final Lymphocytes % Date Value Ref Range Status 03/06/2024 9.0 % Final Abs Lymph Date Value Ref Range Status 03/06/2024 0.82 (L) 1.00 - 4.00 k/uL Final Monocytes % Date Value Ref Range Status 03/06/2024 1.9 % Final Abs Charles Mix Date Value Ref Range Status 03/06/2024 0.17 <0.87 k/uL Final Eosin% Date Value Ref Range Status 01/25/2022 3.5 % Final Abs Eosin Date Value Ref Range Status 03/06/2024 <0.03 <0.46 k/uL Final Basophils % Date Value Ref Range Status 03/06/2024 0.1 % Final Abs Baso Date Value Ref Range Status 03/06/2024 <0.03 <0.11 k/uL Final PATH: Bronch 01/2021: Imaging: CT Scan of the Chest and Abdomen and Pelvis and MRI Brain 02/2021: CT of the Chest and Abdomen and Pelvis 05/2021: 1. Since 03/06/2021, substantial decrease in infiltrative right lung/hilar neoplasm, compatible with excellent treatment response. There are bandlike and nodular regions of residual soft tissue within the right upper lobe and mediastinum, as detailed within the results section. 2. Near-complete resolution of previously seen axillary and mediastinal lymphadenopathy. 3. Moderate-severe persistent narrowing of the proximal right upper lobe apical segmental bronchus. Mass effect along the right upper lobe bronchial tree has overall still markedly improved. 4. Please refer to concurrently acquired and separately reported chest CT for findings related to the thorax. 1. Since 03/12/2021, resolution of previously seen right adrenal nodule, likely due to treatment response. Both adrenals are now normal in appearance. 2. Decrease in size of previously enlarged retroperitoneal lymph nodes. 3. Resolution of previously seen hypodensity within the liver, which likely represented geographic hepatic steatosis. 4. Please refer to concurrently acquired and separately reported chest CT for findings related to the thorax. CT of the Chest and Abdomen and Pelvis and Brain 07/2021: 1. Interval improvement in the bandlike opacity in the right upper lobe. Right suprahilar soft tissue density is stable. 2. No new lobar consolidation or pleural effusion. 3. Previously described mediastinal and right axillary nodes are either stable or slightly decreased in size when compared to prior study. No new bulky intrathoracic adenopathy. 4. Stable persistent narrowing of the right upper lobe apical segmental Bronchus. 1. Several subcentimeter retroperitoneal lymph nodes are again identified, stable from prior study of 05/21/2021. No substantial intra-abdominal or pelvic lymphadenopathy is appreciated. 2. Incidental note is again made of cholelithiasis. No CT evidence of intracranial metastatic disease. CT of the Chest and Abdomen and Pelvis 09/2021: 1. Stable soft tissue in the mediastinal and right hilar regions since 07/29/2021, likely representing treated neoplastic lymphadenopathy in this patient with a history of small cell lung cancer. Bulky lymphadenopathy was present in in these regions on the more remote chest CT from 03/06/2021. No new thoracic lymphadenopathy. 2. Stable right upper lobe pulmonary nodular density since 07/29/2021 which may represent treated neoplasm versus radiation pneumonitis/fibrosis. No new or enlarging pulmonary nodule. Dense masslike consolidation was present in this region on the more remote chest CT from 03/06/2021. 3. Emphysema. Stable exam with nonenlarged retroperitoneal nodes. No intra-abdominal or pelvic metastasis CT Chest and Abd and Pelvis 01/2022: 1. Stable lung findings, with right upper lobe linear and curvilinear scar like opacities intervening small nodular opacities, which may represent chronic scarring, treated tumor or post treatment changes. Tiny left upper lobe nodule noted (visible back to outside chest CT dated 03/16/2021), and may be benign. No new nodules noted. 2. Subcentimeter intrathoracic lymph nodes redemonstrated, although a few of the lymph nodes may measure slightly larger. Attention on follow-up recommended. 3. Emphysema Stable nonenlarged abdominopelvic lymph nodes. No metastatic disease in the abdomen or pelvis. MRI Brain 11/2021: PET Scan 05/2023: 1. Neck: No suspicious hypermetabolic foci 2. Chest: No evidence of FDG avid neoplastic process 3. Abdomen and pelvis: Diffuse anal uptake similar to prior. Clinical correlation. 4. Skeleton: No hypermetabolic osseous lesions MRI Brain 01/2024: No acute intracranial process is noted. No evidence of metastasis in the current study. CT Scan of the Chest and Abdomen and Pelvis 02/2024: No metastatic disease in the abdomen or pelvis. No metastatic disease in the chest. Assessment and Plan: Damon Pollard is a 69 year old year old female here for follow up. Extensive Stage SCLC- Post 3 cycles of Carbo/Etoposide and Atezo with clinical benefit and response clinically and on imaging. She completed 4 cycles of Carbo and Etoposide and Atezo 06/16/2021 and continued single agent Atezo last 01/2022. She was lost to follow up and also taken off study due to compliance issues. Imaging studies 02/2024 and Tomy MRI 01/2024 were negative H/o Meth abuse Irregular bowels and abnormal PET findings but scopes 03/2023 negative both upper and lower- Follows Ditty with GI as well. See back in [address] of the chest and abdomen at that time Thank you for the kind referral. If there are any questions and or concerns please do not hesitate to contact me at [phone]. Apolinar Reyna MD Hematology/Medical Oncology [facility] spent a total of 30 minutes on the date of the service which included preparing to see the patient, [id number] patient care, completing clinical documentation, obtaining and/or reviewing separately obtained history, performing a medically appropriate examination, counseling and educating the patient/family/caregiver and ordering medications, tests, or procedures. CC: MD Shaikh Morgan Rust MD CNOVSP Observed: 03/14/2024 2:15 PM Status: COMPLETED Source: [facility] Visit (SP) Office (HEMAV[facility]) DAMON POLLARD ([id number]) 1955 F Date Time Provider Department 03/14/24 2:15 PM APOLINAR REYNA HEMAVSarah During your visit today, we recorded the following information about you: Temperature Pulse Respiration Blood pressure 98.6 degrees 94/minute 16/minute 130/75 Weight Height 37.5 kg 1.66 m Apolinar Reyna MD 03/14/2024 3:02 PM Signed PATIENT NAME: Damon Pollard CLINIC NO.: [id number] ATTENDING PHYSICIAN: Apolinar Reyna MD DATE OF SERVICE: March 14, 2024 Some of the elements of this note have been copied from my previous progress note dated 06/14/2023 All the information has been reviewed carefully. Dear Dr. Mora here is an update on a follow up visit on female Damon Pollard at the clinic March 14, 2024 Diagnosis: 1. Extensive stage SCLC Treatment History: 1. Carbo/Etoposide/Atezo 03/24/2021, Chemo ended ( 4 cycles) 06/16/2021- Atezo single agent resumed- last dose 01/25/2022, patient was in shelter- Therapy was not resumed On LU007 and randomized to the observation arm- Taken off stude due to compliance issues 2. Upper scope and a colonoscopy 03/[address] Long which was negative HPI: Damon Pollard is a 69 year old year old female here for follow up. She is doing OK and trying to eat and does get occasional bronchitis and denies any fevers and or [place] PAST MEDICAL HISTORY Diagnosis Date Bipolar 2 disorder (HCC) Generalized anxiety disorder H/O emphysema (HCC) Hepatitis Hypokalemia Low back pain Lung cancer (HCC) Menopause Patient reports she was 41 at the time of onset Mixed hyperlipidemia Osteopenia Seizure disorder (HCC) Social History Tobacco Use Smoking status: Some Days Current packs/day: 0.00 Types: Cigarettes Last attempt to quit: 03/02/2021 Years since quittin.0 Passive exposure: Never Smokeless tobacco: Never Vaping Use Vaping status: Never Used Substance Use Topics Alcohol use: Never Drug use: Never FAMILY HISTORY Problem Relation Age of Onset Hypertension Mother Cancer Mother Hypertension Father Cancer Sister Past medical, social and family history reviewed without any changes. REVIEW OF SYSTEMS GENERAL: No weight loss, malaise or fevers. No night sweats. HEENT: Negative for headaches, No changes in hearing or vision, no nose bleeds or other nasal problems. RESPIRATORY: Negative for cough, wheezing and shortness of breath CARDIOVASCULAR: Negative for chest pain, leg swelling and palpitations GI: Negative for abdominal discomfort, blood in stools or black stools and change in bowel habits : Negative for dysuria, frequency and incontinence MUSCULOSKELETAL: Negative for joint pain or swelling, back pain, and muscle pain. SKIN: Negative for lesions, rash, and itching. HEMATOLOGY/LYMPHOLOGY Negative for prolonged bleeding, bruising easily, and swollen nodes. NEURO: Negative for numbness or tingling of hands/feet. No weakness. PHYSICAL EXAMINATION: BP 130/75 Pulse 94 Temp (Src) 98.6 (Temporal Artery) Resp 16 Ht 5' 5.354 (1.66m) Wt 82 lb 12.5 oz (37.6kg) SpO2 98% BMI 13.63 kg/(m2). Wt 49.4 kg (109 lb) BMI 17.94 kg/m2 Last 3 Encounter Wt Readings: Date: Wt: 03/24/2021 49.4 kg (109 lb) 03/16/2021 50.2 kg (110 lb 9.6 oz) General appearance:ECOG PERFORMANCE STATUS: 1- Restricted in physically strenuous activity. Carries out light duty. Patient in NAD. Skin: Skin color, texture, turgor normal. No rashes or lesions. Eyes: Anicteric sclera. Pupils are equally round and reactive to light. Extraocular movements are intact. Lymph Nodes: No cervical, supraclavicular, axillary or inguinal adenopathy.Reduction in axillary nodes. Oropharynx: Lips, mucosa, and tongue normal. Back: No pain to percussion. Negative SLR test Lungs clear to auscultation, No wheezing or rhonchi Heart: RRR without murmur, gallop, or rubs. Abdomen soft, non-tender. No masses, organomegaly Extremities: No deformities. No edema Neuro: Gait and speech normal. Reflexes normal and symmetric. Muscular strength intact. Sensation grossly intact. Rectal: Deferred : Deferred LABS: Glucose (mg/dL) Date Value 03/06/2024 145 08/12/2021 113 Potassium (mmol/L) Date Value 03/06/2024 4.1 08/12/2021 3.7 Sodium (mmol/L) Date Value 03/06/2024 143 08/12/2021 137 Chloride (mmol/L) Date Value 03/06/2024 111 08/12/2021 103 CO2 (mmol/L) Date Value 03/06/2024 21 08/12/2021 24 Creatinine (mg/dL) Date Value 03/06/2024 0.57 08/12/2021 0.56 BUN (mg/dL) Date Value 03/06/2024 18 08/12/2021 5 Anion Gap (mmol/L) Date Value 03/06/2024 11 08/12/2021 10 Calcium (mg/dL) Date Value 08/12/2021 9.6 Calcium, Total (mg/dL) Date Value 03/06/2024 9.7 Protein, Total (g/dL) Date Value 03/06/2024 7.7 08/12/2021 7.8 Albumin (g/dL) Date Value 03/06/2024 4.9 08/12/2021 4.6 Bilirubin, Total (mg/dL) Date Value 03/06/2024 0.2 08/12/2021 0.4 Alkaline Phosphatase (U/L) Date Value 03/06/2024 80 08/12/2021 96 AST (U/L) Date Value 03/06/2024 16 08/12/2021 16 ALT (U/L) Date Value 03/06/2024 14 08/12/2021 13 WBC Date Value Ref Range Status 03/06/2024 9.08 3.70 - 11.00 k/uL Final RBC Date Value Ref Range Status 03/06/2024 3.61 (L) 3.90 - 5.20 m/uL Final Hemoglobin Date Value Ref Range Status 03/06/2024 11.0 (L) 11.5 - 15.5 g/dL Final Hematocrit Date Value Ref Range Status 03/06/2024 32.2 (L) 36.0 - 46.0 % Final MCV Date Value Ref Range Status 03/06/2024 89.2 80.0 - 100.0 fL Final MCH Date Value Ref Range Status 03/06/2024 30.5 26.0 - 34.0 pg Final MCHC Date Value Ref Range Status 03/06/2024 34.2 30.5 - 36.0 g/dL Final RDW-CV Date Value Ref Range Status 03/06/2024 14.0 11.5 - 15.0 % Final Platelet Count Date Value Ref Range Status 03/06/2024 224 150 - 400 k/uL Final MPV Date Value Ref Range Status 03/06/2024 10.7 9.0 - 12.7 fL Final Abs Neut Date Value Ref Range Status 03/06/2024 8.05 (H) 1.45 - 7.50 k/uL Final Lymphocytes % Date Value Ref Range Status 03/06/2024 9.0 % Final Abs Lymph Date Value Ref Range Status 03/06/2024 0.82 (L) 1.00 - 4.00 k/uL Final Monocytes % Date Value Ref Range Status 03/06/2024 1.9 % Final Abs Charles Mix Date Value Ref Range Status 03/06/2024 0.17 <0.87 k/uL Final Eosin% Date Value Ref Range Status 01/25/2022 3.5 % Final Abs Eosin Date Value Ref Range Status 03/06/2024 <0.03 <0.46 k/uL Final Basophils % Date Value Ref Range Status 03/06/2024 0.1 % Final Abs Baso Date Value Ref Range Status 03/06/2024 <0.03 <0.11 k/uL Final PATH: Bronch 01/2021: Imaging: CT Scan of the Chest and Abdomen and Pelvis and MRI Brain 02/2021: CT of the Chest and Abdomen and Pelvis 05/2021: 1. Since 03/06/2021, substantial decrease in infiltrative right lung/hilar neoplasm, compatible with excellent treatment response. There are bandlike and nodular regions of residual soft tissue within the right upper lobe and mediastinum, as detailed within the results section. 2. Near-complete resolution of previously seen axillary and mediastinal lymphadenopathy. 3. Moderate-severe persistent narrowing of the proximal right upper lobe apical segmental bronchus. Mass effect along the right upper lobe bronchial tree has overall still markedly improved. 4. Please refer to concurrently acquired and separately reported chest CT for findings related to the thorax. 1. Since 03/12/2021, resolution of previously seen right adrenal nodule, likely due to treatment response. Both adrenals are now normal in appearance. 2. Decrease in size of previously enlarged retroperitoneal lymph nodes. 3. Resolution of previously seen hypodensity within the liver, which likely represented geographic hepatic steatosis. 4. Please refer to concurrently acquired and separately reported chest CT for findings related to the thorax. CT of the Chest and Abdomen and Pelvis and Brain 07/2021: 1. Interval improvement in the bandlike opacity in the right upper lobe. Right suprahilar soft tissue density is stable. 2. No new lobar consolidation or pleural effusion. 3. Previously described mediastinal and right axillary nodes are either stable or slightly decreased in size when compared to prior study. No new bulky intrathoracic adenopathy. 4. Stable persistent narrowing of the right upper lobe apical segmental Bronchus. 1. Several subcentimeter retroperitoneal lymph nodes are again identified, stable from prior study of 05/21/2021. No substantial intra-abdominal or pelvic lymphadenopathy is appreciated. 2. Incidental note is again made of cholelithiasis. No CT evidence of intracranial metastatic disease. CT of the Chest and Abdomen and Pelvis 09/2021: 1. Stable soft tissue in the mediastinal and right hilar regions since 07/29/2021, likely representing treated neoplastic lymphadenopathy in this patient with a history of small cell lung cancer. Bulky lymphadenopathy was present in in these regions on the more remote chest CT from 03/06/2021. No new thoracic lymphadenopathy. 2. Stable right upper lobe pulmonary nodular density since 07/29/2021 which may represent treated neoplasm versus radiation pneumonitis/fibrosis. No new or enlarging pulmonary nodule. Dense masslike consolidation was present in this region on the more remote chest CT from 03/06/2021. 3. Emphysema. Stable exam with nonenlarged retroperitoneal nodes. No intra-abdominal or pelvic metastasis CT Chest and Abd and Pelvis 01/2022: 1. Stable lung findings, with right upper lobe linear and curvilinear scar like opacities intervening small nodular opacities, which may represent chronic scarring, treated tumor or post treatment changes. Tiny left upper lobe nodule noted (visible back to outside chest CT dated 03/16/2021), and may be benign. No new nodules noted. 2. Subcentimeter intrathoracic lymph nodes redemonstrated, although a few of the lymph nodes may measure slightly larger. Attention on follow-up recommended. 3. Emphysema Stable nonenlarged abdominopelvic lymph nodes. No metastatic disease in the abdomen or pelvis. MRI Brain 11/2021: PET Scan 05/2023: 1. Neck: No suspicious hypermetabolic foci 2. Chest: No evidence of FDG avid neoplastic process 3. Abdomen and pelvis: Diffuse anal uptake similar to prior. Clinical correlation. 4. Skeleton: No hypermetabolic osseous lesions MRI Brain 01/2024: No acute intracranial process is noted. No evidence of metastasis in the current study. CT Scan of the Chest and Abdomen and Pelvis 02/2024: No metastatic disease in the abdomen or pelvis. No metastatic disease in the chest. Assessment and Plan: Damon Pollard is a 69 year old year old female here for follow up. Extensive Stage SCLC- Post 3 cycles of Carbo/Etoposide and Atezo with clinical benefit and response clinically and on imaging. She completed 4 cycles of Carbo and Etoposide and Atezo 06/16/2021 and continued single agent Atezo last 01/2022. She was lost to follow up and also taken off study due to compliance issues. Imaging studies 02/2024 and Tomy MRI 01/2024 were negative H/o Meth abuse Irregular bowels and abnormal PET findings but scopes 03/2023 negative both upper and lower- Follows Ditty with GI as well. See back in [address] of the chest and abdomen at that time Thank you for the kind referral. If there are any questions and or concerns please do not hesitate to contact me at [phone]. Apolinar Reyna MD Hematology/Medical Oncology [facility] spent a total of 30 minutes on the date of the service which included preparing to see the patient, [id number] patient care, completing clinical documentation, obtaining and/or reviewing separately obtained history, performing a medically appropriate examination, counseling and educating the patient/family/caregiver and ordering medications, tests, or procedures. CC: MD Shaikh Morgan Rust MD Knott, Christina, LPN 03/14/2024 2:39 PM Signed F/U with Dr. 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 Discontinue saline lock post exam. If Pt. has a central line or IVAD, may access for administration according to line specific nursing protocol. Once exam is complete flush line and de-access according to line specific nursing protocol in the CT contrast administration guidelines link.Disp: 1 EachRfl: 0 enteric contrast (will be provided with radiology test)For CT CHESTABD/PEL W IVCON Routine order Administer, As Directed One Time Only, via Oral, Rectal, both Oral and Rectal, Enteric Tube, Stoma or Indwelling Catheter, Enteric Contrast as designated per enteric contrast guidelinesDisp: 1 EachRfl: 0 amoxicillin-clavulanate potassium (AUGMENTIN) 875-125 mg per tabletTake 1 tablet by mouth two times a day for 14 days.Disp: 28 tabletRfl: 0 Disposition: Return in about 6 months (around 09/11/2024). Follow-up and Disposition History for Encounter Date Provider Department Center 03/14/2024 [id number] JAVYCAROLINE Rej Prescriptions as of 03/14/2024 - methylPREDNISolone (MEDROL, RY,) 4 mg Dose-Pack Take as instructed per package. - iv contrast (will be provided with radiology test) CT Chest ABD/PEL-Inject, intravenously, once for 1 dose.No IV access, insert saline lock prior to the beginning of sedation, infusion, injection of imaging exam. Discontinue saline lock post exam. If Pt. has a central line or IVAD, may access for administration according to line specific nursing protocol. Once exam is complete flush line and de-access according to line specific nursing protocol in the CT contrast administration guidelines link. - enteric contrast (will be provided with radiology test) For CT CHESTABD/PEL W IVCON Routine order Administer, As Directed One Time Only, via Oral, Rectal, both Oral and Rectal, Enteric Tube, Stoma or Indwelling Catheter, Enteric Contrast as designated per enteric contrast guidelines - amoxicillin-clavulanate potassium (AUGMENTIN) 875-125 mg per tablet Take 1 tablet by mouth two times a day for 14 days. - mirtazapine (REMERON) 15 mg tablet take 1 tablet by mouth at bedtime - CONSTULOSE 10 gram/15 mL solution take 15 milliliters by mouth twice a day if needed - zolpidem (AMBIEN) 10 mg Take 10 mg by mouth once daily. - SPIRIVA RESPIMAT 2.5 mcg/actuation inhaler inhale 2 puffs INTO THE LUNGS once daily - busPIRone HCl 30 mg tablet Take 30 mg by mouth q 12 HR. - QUEtiapine (SEROQUEL) 400 mg tablet Take 400 mg by mouth once daily. - SYMBICORT 160-4.5 mcg/actuation inhaler Inhale 2 Puffs as instructed twice daily. - albuterol HFA (VENTOLIN HFA) 90 mcg/actuation inhaler Inhale as instructed. - ibuprofen (MOTRIN) 600 mg tablet Take by mouth. Problem List As Of Date 03/14/2024 Noted Resolved Small cell lung cancer, right lower lobe (HCC) *03/16/2021 Severe protein-calorie malnutrition (HCC) [E43] 04/14/2021 Bipolar disorder (HCC) [F31.9] 06/14/2023 Other instructions from your clinician: F/U with Dr. Reyna 09/11/24, CT scans 10 days prior Encounter Status:Closed by APOLINAR REYNA on 03/14/24 CT ABD/PEL W IVCON Observed: 03/06/2024 1:18 PM Status: F Source: [facility] * * *Final Report* * * DATE OF EXAM: Mar 06 2024 1:18PM [facility] 0530 - CT ABD/PEL W IVCON / PROCEDURE REASON: multiple diagnoses * * * * Physician Interpretation * * * * RESULT: EXAMINATION: CT ABDOMEN AND PELVIS WITH IV CONTRAST PATIENT/TECHNOLOGIST PROVIDED HISTORY: CLINICAL INFORMATION ( PROVIDED BY ORDERING CLINICIAN) : Small cell carcinoma (HCC) Malignant neoplasm of unspecified part of unspecified bronchus or lung (HCC) TECHNIQUE: CT of the abdomen and pelvis was performed using standard technique, scanning from just above the dome of the diaphragm to the pubic symphysis. . Contrast: IV: 75 ml of Omnipaque 350 Oral: 500 ml of Omni 240 10-25ml diluted with water CT Radiation dose: Integrated Dose-length product (DLP) for this visit = 347 mGy*cm. CT Dose Reduction Employed: Automated exposure control (AEC) COMPARISON: PET/CT 06/06/[address] abdomen pelvis 01/17/2022 Abdomen / Pelvis: Liver: No focal hepatic lesions. Spleen: No focal splenic lesion. Pancreas: No focal pancreatic lesions. Adrenals: No mass. Biliary: No bile duct dilation. Cholelithiasis. Kidneys: Symmetric nephrograms bilaterally without hydronephrosis. Vasculature: The celiac axis and SMA are patent. The portal vein and branches, splenic vein, SMV, and hepatic veins are patent. Abdominal aorta is normal in caliber. GI tract: No bowel obstruction. Lymph nodes: No lymphadenopathy by CT size criteria. Mesentery/Peritoneum: No ascites, fluid collection, or mass. Pelvis: No mass or fluid collection. Urinary bladder is unremarkable. Bones/Soft tissues: Degenerative changes in lumbar spine. Lower thorax: Dedicated CT imaging of the chest was performed concurrently and is dictated separately. Reel Repairer (topogram) images: Unremarkable. IMPRESSION: No metastatic disease in the abdomen or pelvis. Transcribe Date/Time: Mar 06 2024 1:56P Dictated by: MARK LE MD This examination was interpreted and the report reviewed and electronically signed by: MARK LE MD on Mar 06 2024 2:04PM EST Thank you for allowing us to participate in the care of your patient. Should there be any questions regarding this interpretation, please call [phone]. If you are unable to reach us at the number above, please feel free to contact [facility] at [phone]. [id number] CT CHEST W IVCON Observed: 03/06/2024 1:18 PM Status: F Source: [facility] * * *Final Report* * * DATE OF EXAM: Mar 06 2024 1:18PM [facility] 0539 - CT CHEST W IVCON / PROCEDURE REASON: multiple diagnoses * * * * Physician Interpretation * * * * RESULT: EXAMINATION: CHEST CT WITH CONTRAST CLINICAL HISTORY: Small cell carcinoma (HCC) Malignant neoplasm of unspecified part of unspecified bronchus or lung (HCC) Technique: Spiral CT acquisition of the chest from the thoracic inlet to the upper abdomen following IV contrast. MQ: [id number]_5 Contrast: 75 mL Omnipaque [address] Dose-Length Product: 347 mGy*cm CT Dose Reduction Employed: Automated exposure control (AEC) Comparison: 10/20/2023 and 01/17/2022; PET/CT 06/06/2023 RESULT: Lines, tubes, and devices: None. Lung parenchyma and airways: Trachea and central airways are patent. Biapical pleuroparenchymal scarring. Centrilobular emphysema. Bandlike scarring right upper lobe with mild nodularity unchanged since prior. No new suspicious appearing pulmonary nodules. Pleural space: No pleural effusion or pneumothorax. Lower neck, lymph nodes, and mediastinum: No axillary, supraclavicular, mediastinal or hilar lymphadenopathy by CT size criteria. Heart, pericardium, and thoracic vessels: The heart is normal in size. No pericardial effusion. The thoracic aorta and main pulmonary artery are normal in caliber. Atherosclerotic calcifications of the thoracic aorta and coronary arteries. Bones/Soft Tissues: No aggressive osseous lesions. Upper abdomen: Dedicated CT imaging of the abdomen and pelvis was performed concurrently and is dictated separately. Reel Repairer (topogram) images: Unremarkable. IMPRESSION: No metastatic disease in the chest. Transcribe Date/Time: Mar 06 2024 2:05P Dictated by: MARK LE MD This examination was interpreted and the report reviewed and electronically signed by: MARK LE MD on Mar 06 2024 2:15PM EST Thank you for allowing us to participate in the care of your patient. Should there be any questions regarding this interpretation, please call [phone]. If you are unable to reach us at the number above, please feel free to contact [facility] at [phone]. [id number] PROGRESS Observed: 03/06/2024 12:15 PM Status: COMPLETED Source: [facility] HNO ID: [id number] Author: TASHA VALENZUELA RT(R) Service: ? Author Type: Technologist Type: Progress Notes Filed: 03/06/2024 13:02 Note Text: Radiology Service Progress Note PATIENT NAME: Damon Pollard DATE OF SERVICE: March 06, 2024 TIME: 1:01 PM PATIENT IDENTITY VERIFICATION COMPLETED USING TWO (2) IDENTIFIERS: Name and Date of confirmed by patient verbally. FALL SCREENING: Has the patient had 2 falls in the last year or 1 fall with injury or currently using an Ambulatory Assistive Device (Walker, Cane, Wheelchair, Crutches, etc.)? No PATIENT GENDER DATA: Female. status: : No status: NO. PATIENT RELEVANT IMPLANT DATA REVIEWED: Not Applicable PATIENT PRESENTS WITH AN IMPLANTABLE OR ATTACHED DANCE STUDIO MANAGER: No RADIOLOGY DEPARTMENT: CT; Exam(s) Completed: Chest Abdomen Pelvis PERIPHERAL IV DATA: Site assessment: Clean,Dry and Intact, Site disposition Discontinued SIGNED BY: RT Cathryn(R) March 06, 2024 1:01 PM COMP METAB 2000 PNL SERPL Collected: 12:04 PM Status: F Source: [facility] Order Comment: Specimen Type : BLOOD SPECIMEN Ordering Facility: [facility] Address: [address], [place] [address] TYPE CODE TESTS RESULT OUT OF RANGE REFERENCE UNITS LAB 2885-2(LOINC) Prot SerPl-mCnc 7.7 6.3-8.0 g/dL LAB 1751-7(LOINC) Albumin SerPl-mCnc 4.9 3.9-4.9 g/dL LAB 06088-7(LOINC) Calcium SerPl-mCnc 9.7 8.5-10.2 mg/dL LAB 1975-2(LOINC) Bilirub SerPl-mCnc 0.2 0.2-1.3 mg/dL LAB 6768-6(LOINC) ALP SerPl-cCnc 80 34-123 U/L LAB 1920-8(LOINC) AST SerPl-cCnc 16 13-35 U/L LAB 1742-6(LOINC) ALT SerPl-cCnc 14 7-38 U/L LAB 2345-7(LOINC) Glucose SerPl-mCnc 145 High 74-99 mg/dL Result Comment: The [place] [employer] (ADA) provides guidance for cutoff values for fasting glucose and random glucose. The ADA defines fasting as no caloric intake for at least 8 hours. Fasting plasma glucose results between 100 to 125 mg/dL indicate increased risk for diabetes (prediabetes). Fasting plasma glucose results greater than or equal to 126 mg/dL meet the criteria for diagnosis of diabetes. In the absence of unequivocal hyperglycemia, results should be confirmed by repeat testing. In a patient with classic symptoms of hyperglycemia or hyperglycemic crisis, random plasma glucose results greater than or equal to 200 mg/dL meet the criteria for diagnosis of diabetes. Reference: Standards of Medical Care in Diabetes 2016, [place] [employer]. Diabetes Care. 2016.39(Suppl 1). LAB 3094-0(LOINC) BUN SerPl-mCnc 18 7-21 mg/ dL LAB 2160-0(LOINC) Creat SerPl-mCnc 0.57 Low 0.58-0.96 mg/dL LAB 2951-2(LOINC) Sodium SerPl-sCnc 143 136-144 mmol/L LAB 2823-3(LOINC) Potassium SerPl-sCnc 4.1 3.7-5.1 mmol/L LAB 2075-0(LOINC) Chloride SerPl-sCnc 111 High 98-107 mmol/L LAB 2027-9(LOINC) CO2 SerPl-sCnc 21 Low 22-30 mmo l/L LAB 12851-3(LOINC) Anion Gap SerPl-sCnc 11 8-15 mmol/L LAB 42423-8(LOINC) Creatinine + eGFR Pnl SerPlBld 99 >=60 mL/min/1 .73m??? Result Comment: Estimated Gl omerular Filtration Rate (eGFR) is calculated using the 2020 CKD-EPI creatinine equation. This equation utilizes serum creatinine, sex, and age as parameters. The creatinine assay has traceable calibration to isotope dilution-mass spectrometry. Refer to KDIGO guidelines for clinical interpretation. In patients with unstable renal function, e.g. those with acute kidney injury, the eGFR may not accurately reflect actual GFR. Performed By: #### 92813-3 # ### [facility] CLIA [id number] [address] [place] [address] CBC W AUTO DIFF BLD Collected: 03/06/2024 12:04 PM S tatus: F Source: [facility] Order Comment: Specimen Type : BLOOD SPECIMEN Ordering Facility: [facility] Address: [address] [place] [address] TYPE CODE TESTS RESULT OUT OF RANGE REFERENCE UNITS LAB 6690-2(LOINC) WBC # Bld Auto 9.08 3.70-11.00 k/uL LAB 789-8(LOINC) RBC # Bld Auto 3.61 Low 3.90-5.20 m/ uL LAB 718-7(LOINC) Hgb Bld-mCnc 11.0 Low 11.5-15.5 g/dL LAB 4544-3(LOINC) Hct VFr Bld Auto 32.2 Low 36.0-46.0 % LAB 787-2(LOINC) MCV RBC Auto 89.2 80.0-100.0 fL LAB 785-6(LOINC) MCH RBC Qn Auto 30.5 26.0-34.0 p g LAB 786-4(LOINC) MCHC RBC Auto-mCnc 34.2 30.5-36.0 g/dL LAB 87084-6(LOINC) RDW RBC-Rto 14.0 11.5-15.0 % LAB 777-3([facility]) Platelet # Bld Auto 224 150-400 k/uL LAB 82237-1([facility]) PMV Bld Auto 10.7 9.0-12.7 fL LAB 770-8([facility]) Neutrophils/leuk NFr Bld Auto 88.7 % LAB 751-8([facility]) Neutrophils # Bld Auto 8.05 High 1.45-7.50 k/uL LAB 736-9([facility]) Lymphocytes/leuk NFr Bld Auto 9.0 % LAB 731-0([facility]) Lymphocytes # Bld Auto 0.82 Low 1.00-4.00 k/uL LAB 5905-5([facility]) Monocytes/leuk NFr Bld Auto 1.9 % LAB 742-7([facility]) Monocytes # Bld Auto 0.17 <0.87 k/uL LAB 713-8([facility]) Eosinophil/leuk NFr Bld Auto 0.0 % LAB 711-2([facility]) Eosinophil # Bld Auto <0.03 <0.46 k/uL LAB 706-2([facility]) Basophils/leuk NFr Bld Auto 0.1 % LAB 704-7([facility]) Basophils # Bld Auto <0.03 <0.11 k/uL LAB 65527-1([facility]) Imm Granulocytes/freedom k NFr Bld Auto 0.3 % LAB 02374-4([facility]) Imm Granulocytes # Bld Auto 0.03 <0.10 k/uL LAB 04425-0([facility]) nRBC/100 WBC Bld-Rto 0.0 /100 WBC LAB 771-6([facility]) nRBC # Bld Auto <0.01 <0.01 k/u L LAB 20471-5([facility]) Differential method Bld Auto Performed By: #### 15152-7 # ### [facility] CLIA [id number] [address] [place] [address] ONIEL Observed: 03/06/2024 12:00 AM Status: COMPLETED Source: [facility] Telephone ([employer]) CONSTANTINEDAMON AGUILAR ([id number]) 1955 F Date Time Provider Department 03/06/24 RAGINI SALMON During your visit today, we recorded the following information about you: Ragini Salmon RN 03/06/2024 2:51 PM Signed ----- Message from Amy Warner PA-C sent at 03/06/2024 2:42 PM EDT ----- Please call with negative scans Ragini Salmon RN 03/06/2024 2:52 PM Signed VM left for pt with MM message below. Encouraged to call with any questions, needs or concerns. Follow up appointment date and time provided. Ragini Salmon RN Allergies As of Date: 03/06/2024 Noted Allergy Reaction ERYTHROMYCIN 12/30/2020 4 - Hives Date Reviewed: 01/31/2024 Reviewed by: Amy Warner PA-C - Fully Assessed Reason for Visit: Results [95] Prescriptions as of 03/06/2024 - potassium chloride (KLOR-CON) 20 mEq packet Take 20 mEq by mouth once daily. - mirtazapine (REMERON) 15 mg tablet take 1 tablet by mouth at bedtime - iv contrast (will be provided with radiology test) CT Chest W -Inject, intravenously, once for 1 dose.No IV access, insert saline lock prior to the beginning of sedation, infusion, injection of imaging exam. Discontinue saline lock post exam. If Pt. has a central line or IVAD, may access for administration according to line specific nursing protocol. Once exam is complete flush line and de-access according to line specific nursing protocol in the CT contrast administration guidelines link. - CONSTULOSE 10 gram/15 mL solution take 15 milliliters by mouth twice a day if needed - zolpidem (AMBIEN) 10 mg Take 10 mg by mouth once daily. - SPIRIVA RESPIMAT 2.5 mcg/actuation inhaler inhale 2 puffs INTO THE LUNGS once daily - busPIRone HCl 30 mg tablet Take 30 mg by mouth q 12 HR. - QUEtiapine (SEROQUEL) 400 mg tablet Take 400 mg by mouth once daily. - SYMBICORT 160-4.5 mcg/actuation inhaler Inhale 2 Puffs as instructed twice daily. - albuterol HFA (VENTOLIN HFA) 90 mcg/actuation inhaler Inhale as instructed. - ibuprofen (MOTRIN) 600 mg tablet Take by mouth. Problem List As Of Date 03/06/2024 Noted Resolved Small cell lung cancer, right lower lobe (HCC) *03/16/2021 Severe protein-calorie malnutrition (HCC) [E43] 04/14/2021 Bipolar disorder (HCC) [F31.9] 06/14/2023 Encounter Status:Closed by RAGINI SALMON on 03/06/24 ONIEL Observed: 02/15/2024 12:00 AM Status: COMPLETED Source: [facility] Telephone ([employer]MASA) DAMON POLLARD ([id number]) 1955 F Date Time Provider Department 02/15/24 ALFRED STONE During your visit today, we recorded the following information about you: Alfred Stone RN 02/15/2024 9:48 AM Signed Pt calls requesting results of MRI. Results reviewed with pt. Pt states she is aware of her scans here on 02/20 and follow up with [facility] in [place] on 02/28. Alfred Stone RN Allergies As of Date: 02/15/2024 Noted Allergy Reaction ERYTHROMYCIN 12/30/2020 4 - Hives Date Reviewed: 01/31/2024 Reviewed by: Amy Warner PA-C - Fully Assessed Reason for Visit: Results [95] Prescriptions as of 02/15/2024 - potassium chloride (KLOR-CON) 20 mEq packet Take 20 mEq by mouth once daily. - mirtazapine (REMERON) 15 mg tablet take 1 tablet by mouth at bedtime - iv contrast (will be provided with radiology test) CT Chest W -Inject, intravenously, once for 1 dose.No IV access, insert saline lock prior to the beginning of sedation, infusion, injection of imaging exam. Discontinue saline lock post exam. If Pt. has a central line or IVAD, may access for administration according to line specific nursing protocol. Once exam is complete flush line and de-access according to line specific nursing protocol in the CT contrast administration guidelines link. - CONSTULOSE 10 gram/15 mL solution take 15 milliliters by mouth twice a day if needed - zolpidem (AMBIEN) 10 mg Take 10 mg by mouth once daily. - SPIRIVA RESPIMAT 2.5 mcg/actuation inhaler inhale 2 puffs INTO THE LUNGS once daily - busPIRone HCl 30 mg tablet Take 30 mg by mouth q 12 HR. - QUEtiapine (SEROQUEL) 400 mg tablet Take 400 mg by mouth once daily. - SYMBICORT 160-4.5 mcg/actuation inhaler Inhale 2 Puffs as instructed twice daily. - albuterol HFA (VENTOLIN HFA) 90 mcg/actuation inhaler Inhale as instructed. - ibuprofen (MOTRIN) 600 mg tablet Take by mouth. Problem List As Of Date 02/15/2024 Noted Resolved Small cell lung cancer, right lower lobe (HCC) *03/16/2021 Severe protein-calorie malnutrition (HCC) [E43] 04/14/2021 Bipolar disorder (HCC) [F31.9] 06/14/2023 Encounter Status:Closed by ALFRED STONE on 02/15/24 ONIEL Observed: 01/31/2024 12:00 AM Status: COMPLETED Source: [facility] Telephone ([employer]) DAMON POLLARD ([id number]) 1955 F Date Time Provider Department 01/31/24 RAGINI SALMON During your visit today, we recorded the following information about you: Ragini Salmon RN 01/31/2024 9:49 AM Signed Pt scheduled for MRI Brain 02/06/24 at [facility]. Pt >60 and needs CRE prior to IV contrast. Fax to [facility]; [phone] Please sign pended CRE WILMAN Mckenna Natalie, RN 01/31/2024 10:28 AM Signed Signed and faxed to [facility] Ragini Salmon RN Allergies As of Date: 01/31/2024 Noted Allergy Reaction ERYTHROMYCIN 12/30/2020 4 - Hives Date Reviewed: 01/31/2024 Reviewed by: Amy Warner PA-C - Fully Assessed Primary Visit Diagnosis:Small cell carcinoma (HCC) [C80.1] Order(s):CREATININE BLD [SQCRET] Order #: [id number] FUTURE Prescriptions as of 01/31/2024 - KLOR-CON 20 mEq packet dissolve 1 packet in 4 ounce(s) OF WATER AND DRINK DAILY - mirtazapine (REMERON) 15 mg tablet take 1 tablet by mouth at bedtime - iv contrast (will be provided with radiology test) CT Chest W -Inject, intravenously, once for 1 dose.No IV access, insert saline lock prior to the beginning of sedation, infusion, injection of imaging exam. Discontinue saline lock post exam. If Pt. has a central line or IVAD, may access for administration according to line specific nursing protocol. Once exam is complete flush line and de-access according to line specific nursing protocol in the CT contrast administration guidelines link. - CONSTULOSE 10 gram/15 mL solution take 15 milliliters by mouth twice a day if needed - zolpidem (AMBIEN) 10 mg Take 10 mg by mouth once daily. - SPIRIVA RESPIMAT 2.5 mcg/actuation inhaler inhale 2 puffs INTO THE LUNGS once daily - busPIRone HCl 30 mg tablet Take 30 mg by mouth q 12 HR. - QUEtiapine (SEROQUEL) 400 mg tablet Take 400 mg by mouth once daily. - SYMBICORT 160-4.5 mcg/actuation inhaler Inhale 2 Puffs as instructed twice daily. - albuterol HFA (VENTOLIN HFA) 90 mcg/actuation inhaler Inhale as instructed. - ibuprofen (MOTRIN) 600 mg tablet Take by mouth. Problem List As Of Date 01/31/2024 Noted Resolved Small cell lung cancer, right lower lobe (HCC) *03/16/2021 Severe protein-calorie malnutrition (HCC) [E43] 04/14/2021 Bipolar disorder (HCC) [F31.9] 06/14/2023 Encounter Status:Closed by RAGINI SALMON on 01/31/24 WENDYN Observed: 12/12/2023 12:00 AM Status: COMPLETED Source: [facility] Telephone (HEMASA) DAMON POLLARD ([id number]) 1955 F Date Time Provider Department 12/12/23 ALFRED STONE During your visit today, we recorded the following information about you: Alfred Stone RN 12/12/2023 12:07 PM Signed Call received from as well as Kinsey at Dr Allen's office requesting [email or web address] paperwork to be faxed in. Telephone encounter in from [facility] on 11/30, but I'm unable to find paperwork. Call placed to Kinsey and requested her to fax the papers to our office again, and triage fax number provided to her. Will await papers and ask Dr Reyna to sign them as soon as we receive them. WILMAN Lane Tiffany G, RN 12/12/2023 2:02 PM Signed Paperwork received, signed and faxed back to Kinsey. Alfred Stone RN Allergies As of Date: 12/12/2023 Noted Allergy Reaction ERYTHROMYCIN 12/30/2020 4 - Hives Date Reviewed: 11/09/2023 Reviewed by: Jessenia Donato RD - Fully Assessed Reason for Visit: [email or web address] paperwork [Other] Prescriptions as of 12/12/2023 - KLOR-CON 20 mEq packet dissolve 1 packet in 4 ounce(s) OF WATER AND DRINK DAILY - mirtazapine (REMERON) 15 mg tablet take 1 tablet by mouth at bedtime - iv contrast (will be provided with radiology test) CT Chest W -Inject, intravenously, once for 1 dose.No IV access, insert saline lock prior to the beginning of sedation, infusion, injection of imaging exam. Discontinue saline lock post exam. If Pt. has a central line or IVAD, may access for administration according to line specific nursing protocol. Once exam is complete flush line and de-access according to line specific nursing protocol in the CT contrast administration guidelines link. - CONSTULOSE 10 gram/15 mL solution take 15 milliliters by mouth twice a day if needed - zolpidem (AMBIEN) 10 mg Take 10 mg by mouth once daily. - SPIRIVA RESPIMAT 2.5 mcg/actuation inhaler inhale 2 puffs INTO THE LUNGS once daily - busPIRone HCl 30 mg tablet Take 30 mg by mouth q 12 HR. - QUEtiapine (SEROQUEL) 400 mg tablet Take 400 mg by mouth once daily. - SYMBICORT 160-4.5 mcg/actuation inhaler Inhale 2 Puffs as instructed twice daily. - albuterol HFA (VENTOLIN HFA) 90 mcg/actuation inhaler Inhale as instructed. - ibuprofen (MOTRIN) 600 mg tablet Take by mouth. Problem List As Of Date 12/12/2023 Noted Resolved Small cell lung cancer, right lower lobe (HCC) *03/16/2021 Severe protein-calorie malnutrition (HCC) [E43] 04/14/2021 Bipolar disorder (HCC) [F31.9] 06/14/2023 Encounter Status:Closed by ALFRED STONE on 12/12/23 ONIEL Observed: 12/04/2023 12:00 AM Status: COMPLETED Source: [facility] Telephone (HEMASA) TRINIOLGA LIDIADAMON AGUILAR ([id number]) 1955 F Date Time Provider Department 12/04/23 RAGINI SALMON During your visit today, we recorded the following information about you: Ragini Salmon, WILMAN 12/04/2023 12:44 PM Signed Pt requests to follow Dr Reyna for her Feb follow up. PSS: please call pt to schedule, as requested. WILMAN Mckenna Brittany 12/04/2023 12:46 PM Addendum Please see scheduling request. Patient would like to be scheduled with Dr. Reyna in [place]. Appointment in [place] cancelled. Thank you! Faby Morin 12/08/2023 1:49 PM Signed Waiting for Brenda template to open for February in [place] Faby Carr 12/14/2023 11:58 AM Signed Spoke with patient, patient stated she will not be able to come to [place] sent a message to jenifer for transfer of care. Alfred Joyner 12/18/2023 11:32 AM Signed Sent to marcia arenas. Lianna Jeronimo 12/18/2023 11:40 AM Addendum Patient has been added to the folder to contact patient prior to February for [facility]. Patient was notified we will call closer to scheduling. Closing encounter. Lianna Jeronimo Allergies As of Date: 12/04/2023 Noted Allergy Reaction ERYTHROMYCIN 12/30/2020 4 - Hives Date Reviewed: 11/09/2023 Reviewed by: Jessenia Donato RD - Fully Assessed Reason for Visit: Appointment [186] Prescriptions as of 12/18/2023 - KLOR-CON 20 mEq packet dissolve 1 packet in 4 ounce(s) OF WATER AND DRINK DAILY - mirtazapine (REMERON) 15 mg tablet take 1 tablet by mouth at bedtime - iv contrast (will be provided with radiology test) CT Chest W -Inject, intravenously, once for 1 dose.No IV access, insert saline lock prior to the beginning of sedation, infusion, injection of imaging exam. Discontinue saline lock post exam. If Pt. has a central line or IVAD, may access for administration according to line specific nursing protocol. Once exam is complete flush line and de-access according to line specific nursing protocol in the CT contrast administration guidelines link. - CONSTULOSE 10 gram/15 mL solution take 15 milliliters by mouth twice a day if needed - zolpidem (AMBIEN) 10 mg Take 10 mg by mouth once daily. - SPIRIVA RESPIMAT 2.5 mcg/actuation inhaler inhale 2 puffs INTO THE LUNGS once daily - busPIRone HCl 30 mg tablet Take 30 mg by mouth q 12 HR. - QUEtiapine (SEROQUEL) 400 mg tablet Take 400 mg by mouth once daily. - SYMBICORT 160-4.5 mcg/actuation inhaler Inhale 2 Puffs as instructed twice daily. - albuterol HFA (VENTOLIN HFA) 90 mcg/actuation inhaler Inhale as instructed. - ibuprofen (MOTRIN) 600 mg tablet Take by mouth. Problem List As Of Date 12/04/2023 Noted Resolved Small cell lung cancer, right lower lobe (HCC) *03/16/2021 Severe protein-calorie malnutrition (HCC) [E43] 04/14/2021 Bipolar disorder (HCC) [F31.9] 06/14/2023 Encounter Status:Closed by RAGINI SALMON on 12/04/23 ONIEL Observed: 12/01/2023 12:00 AM Status: COMPLETED Source: [facility] Telephone (HEMASA) DAMON POLLARD ([id number]) 1955 F Date Time Provider Department 12/01/23 APOLINAR REYNA During your visit today, we recorded the following information about you: Renée Saeed MA 12/01/2023 1:34 PM S[address] [employer] forms placed in folder for approval and signature. Renée Saeed MA Allergies As of Date: 12/01/2023 Noted Allergy Reaction ERYTHROMYCIN 12/30/2020 4 - Hives Date Reviewed: 11/09/2023 Reviewed by: Jessenia Donato RD - Fully Assessed Reason for Visit: [employer] Forms [Other] Prescriptions as of 12/28/2023 - KLOR-CON 20 mEq packet dissolve 1 packet in 4 ounce(s) OF WATER AND DRINK DAILY - mirtazapine (REMERON) 15 mg tablet take 1 tablet by mouth at bedtime - iv contrast (will be provided with radiology test) CT Chest W -Inject, intravenously, once for 1 dose.No IV access, insert saline lock prior to the beginning of sedation, infusion, injection of imaging exam. Discontinue saline lock post exam. If Pt. has a central line or IVAD, may access for administration according to line specific nursing protocol. Once exam is complete flush line and de-access according to line specific nursing protocol in the CT contrast administration guidelines link. - CONSTULOSE 10 gram/15 mL solution take 15 milliliters by mouth twice a day if needed - zolpidem (AMBIEN) 10 mg Take 10 mg by mouth once daily. - SPIRIVA RESPIMAT 2.5 mcg/actuation inhaler inhale 2 puffs INTO THE LUNGS once daily - busPIRone HCl 30 mg tablet Take 30 mg by mouth q 12 HR. - QUEtiapine (SEROQUEL) 400 mg tablet Take 400 mg by mouth once daily. - SYMBICORT 160-4.5 mcg/actuation inhaler Inhale 2 Puffs as instructed twice daily. - albuterol HFA (VENTOLIN HFA) 90 mcg/actuation inhaler Inhale as instructed. - ibuprofen (MOTRIN) 600 mg tablet Take by mouth. Problem List As Of Date 12/01/2023 Noted Resolved Small cell lung cancer, right lower lobe (HCC) *03/16/2021 Severe protein-calorie malnutrition (HCC) [E43] 04/14/2021 Bipolar disorder (HCC) [F31.9] 06/14/2023 Encounter Status:Closed by LAMIN REN on 12/28/23 CNPN Observed: 11/20/2023 12:00 AM Status: COMPLETED Source: [facility] Telephone (HEMAS[place]) DAMON POLLARD ([id number]) 1955 F Date Time Provider Department 11/20/23 RAGINI SALMON During your visit today, we recorded the following information about you: Ragini Salmon, WILMAN 11/20/2023 12:32 PM Signed Pt called for a letter to be sent that she has had a cancer diagnosis for daily supplies. She is unaware of place, but provided phone number for me to call. I attempted to call for information needed. VM left for them to call back to discuss needs. WILMAN Mckenna Natalie, WILMAN 11/21/2023 10:32 AM [facility] as [facility]. Letter mailed, as they do not have a fax. Pt updated to call for supplies. Ragini Salmon RN Allergies As of Date: 11/20/2023 Noted Allergy Reaction ERYTHROMYCIN 12/30/2020 4 - Hives Date Reviewed: 11/09/2023 Reviewed by: Jessenia Donato RD - Fully Assessed Reason for Visit: Letter pt had cancer for daily supplies [Other] Prescriptions as of 11/21/2023 - KLOR-CON 20 mEq packet dissolve 1 packet in 4 ounce(s) OF WATER AND DRINK DAILY - mirtazapine (REMERON) 15 mg tablet take 1 tablet by mouth at bedtime - iv contrast (will be provided with radiology test) CT Chest W -Inject, intravenously, once for 1 dose.No IV access, insert saline lock prior to the beginning of sedation, infusion, injection of imaging exam. Discontinue saline lock post exam. If Pt. has a central line or IVAD, may access for administration according to line specific nursing protocol. Once exam is complete flush line and de-access according to line specific nursing protocol in the CT contrast administration guidelines link. - CONSTULOSE 10 gram/15 mL solution take 15 milliliters by mouth twice a day if needed - zolpidem (AMBIEN) 10 mg Take 10 mg by mouth once daily. - SPIRIVA RESPIMAT 2.5 mcg/actuation inhaler inhale 2 puffs INTO THE LUNGS once daily - busPIRone HCl 30 mg tablet Take 30 mg by mouth q 12 HR. - QUEtiapine (SEROQUEL) 400 mg tablet Take 400 mg by mouth once daily. - SYMBICORT 160-4.5 mcg/actuation inhaler Inhale 2 Puffs as instructed twice daily. - albuterol HFA (VENTOLIN HFA) 90 mcg/actuation inhaler Inhale as instructed. - ibuprofen (MOTRIN) 600 mg tablet Take by mouth. Problem List As Of Date 11/20/2023 Noted Resolved Small cell lung cancer, right lower lobe (HCC) *03/16/2021 Severe protein-calorie malnutrition (HCC) [E43] 04/14/2021 Bipolar disorder (HCC) [F31.9] 06/14/2023 Letter Text Encounter Status:Closed by RAGINI SALMON on 11/21/23 ALLERGIES DATE TYPE / CODE NAME / CODE REACTION SEVERITY SOURCE 02/22/2024 DRUG INGREDI/400280626(S NOMED CT) AZITHROMYCIN SWELLING [facility] 12/30/2020 DRUG/[id number](SNOM ED CT) ERYTHROMYCIN HIVES [facility] ENCOUNTERS ADMIT/DISCHARGE ACCOUNT NUMBER ADMITTING ENCOUNTER CLASS LOCATION SOURCE 11/04/2024/ 5 [id number] Ambulatory [facility] HospitalBuild ing:HESA [facility] 10/15/2024 [id number] Ambulatory [facility] HospitalBuild ing:PCSA [facility] 09/20/2024/ 5 [id number] Ambulatory [facility] HospitalBuild ing:HEBASILIO [facility] 09/12/2024/ 5 [id number] Ambulatory [facility] HospitalBuild ing:PCSA [facility] 09/11/2024/ 5 [id number] Ambulatory Building:[facility] 05/01/2024/ 4 [id number] Ambulatory Building:[facility] 03/14/2024/ 4 [id number] Ambulatory [facility] HospitalBuild ing:HEAV [facility] 03/06/2024/ 4 [id number] Ambulatory [facility] HospitalBuild ing:PCSA [facility] 02/15/2024/ 4 [id number] Ambulatory Building:[facility] 01/08/2024/ 4 [id number] Ambulatory Building:[facility] 11/16/2023/ 4 [id number] Ambulatory Building:[facility] PAYERS ENCOUNTER GUARANTOR PAYER SUBSCRIBER SOURCE 11/04/2024 Primary Insurance:[facility] MEDICARE ADVANTAGE OPolicy Number: [id number] Date:5091-59-53Ooxy Name:Sarah Luque ERIN: [id number] [facility] [address] [address] [facility] 11/04/2024 Secondary Insurance:[place] MEDICAIDPolicy Number: [id number] Date:5737-76-95Marw Name:Jose De Jesus Luque CONSTANTINEANNADAVIDB: [id number] [facility] [address] [place] [address] [facility] 10/15/2024 Primary Insurance:[facility] MEDICARE ADVANTAGE OPolicy Number: [id number] Date:5782-29-94Pbul Name:Sarah Luque TRINIMARIA DEL CARMENDAVIDB: [id number] [facility] [address] [place] [address] [facility] 10/15/2024 Secondary Insurance:[place] MEDICA[place]Policy Number: [id number] Date:3957-00-57Qdxa Name:Jose De Jesus Luque CONSTANTINEANNADAVIDB: [id number] [facility] [address] [place] [address] [facility] 09/20/2024 Primary Insurance:[facility] MEDICARE ADVANTAGE HMOPolicy Number: [id number] Date:1076-11-78Hikf Name:Sarah FITCHTTADOB: [id number] [place] [address] [facility] 09/20/2024 Secondary Insurance:[place] MEDICAIDPolicy Number: [id number] Date:9894-41-18Svho Name:Jose De Jesus FLORESADOB: [id number] [address] [place] [address] [facility] 09/12/2024 Primary Insurance:[employer] ADVANTAGE HMOPolicy Number: [id number] Date:3223-04-92Rnbb Name:Sarah FLORESADOB: [id number] [address] [place] [address] [facility] 09/12/2024 Secondary Insurance:[place] MEDICAIDPolicy Number: [id number] Date:1429-20-17Wcsb Name:Jose De Jesus FLORESADOB: [id number] [address] [facility] 09/11/2024 DAMON Luque CONSTANTINETTADOB: [address], [place] [address]Xwb: () Primary Insurance:[employer] MEDICARE ADVANTAGEPolicy Number: [id number] Date:2021-12-17 DAMON Luque TRINIAROTTADOB: [id number], [place] [address] [facility] 09/11/2024 Secondary Insurance:MEDICAID OHPolic Number: [id number] Date:2021-11-17 DAMON Luque TRINIAROTTADOB: [id number], [place] [address] [facility] 05/01/2024 DAMON M BARBAROTTADOB: [address] [place] [address]Alh: () Primary Insurance:[facility] Number: [id number] Date:2021-12-17 DAMON FITCHTTADOB: [id number] [place] [address] [facility] 05/01/2024 Secondary Insurance:MEDICAID DCPolicy Number: [id number] Date:2021-11-17 DAMON FITCHTTADOB: [id number] [place] [address] [facility] 03/14/2024 Primary Insurance:[employer] MED[employer] ADVANTAGE HMOPolicy Number: [id number] Date:8718-47-85Nzpx Name:Sarah FLORESADOB: [id number] [place] [address] [facility] 03/14/2024 Secondary Insurance:[place] MEDICAIDPolicy Number: [id number] Date:6525-90-23Tdal Name:Jose De Jesus FITCHTTADOB: [id number] [place] [address] [facility] 03/06/2024 Primary Insurance:[employer] MEDICARE ADVANTAGE [facility] Number: [id number] Date:1668-31-79Zgjx Name:Sarah FLORESADOB: [id number] [place] [address] [facility] 03/06/2024 Secondary Insurance:[place] MEDICAIDPolicy Number: [id number] Date:5387-15-22Ntrp Name:Jose De Jesus Luque TRINIMARIA DEL CARMENADOB: [id number] [place] [address] [facility] 02/15/2024 DAMON Luque BARBAROTTADOB: [address] [place] [address]Dpe: (HP) Primary Insurance:[facility] MEDICARE ADVANTAGEPolicy Number: [id number] Date:2021-12-17 DAMON Luque BARBAROTTADOB: [id number] [place] [address] [facility] 02/15/2024 Secondary Insurance:[place] Number: [id number] Date:2021-11-17 DAMON Luque TRINIAROTTADOB: [id number] [place] [address] [facility] 01/08/2024 DAMON Luque TRINIAROTTADOB: [address] [place] [address]Xdd: (HP) Primary Insurance:[employer] MEDICARE ADVANTAGEPolicy Number: [id number] Date:2021-12-17 DAMON Luque TRINIAROTTADOB: [id number] [place] [address] [facility] 01/08/2024 Secondary Insurance:[place] Number: [id number] Date:2021-11-17 DAMON Luque BARBAROTTADOB: [id number] [place] [address] [facility] 11/16/2023 DAMON Luque TRINIAROTTADOB: [address] [place] [address]Ldg: (HP) Primary Insurance:[employer] MEDICARE ADVANTAGEPolicy Number: [id number] Date:2021-12-17 DAMON Luque TRINIAROTTADOB: [id number] [place] [address] [facility] 11/16/2023 Secondary Insurance:MEDICAID [facility] Number: [id number] Date:2021-11-17 DAMON DAVILAB: [id number], [place] [address] [facility]
[2024-11-09 17:05] VITALS: BP 130/68; PULSE 86; TEMP 36.8; O2SAT 99; BMI 19.1
--- NOTE | 2024-11-09 17:11 | ED.GENADUL1 ---
HPI HPI - General Adult General Chief complaint: Nausea/Vomiting/Diarrhea Stated complaint: VOMITING, DIARRHEA Time Seen by Provider: 11/09/24 17:08 Mode of arrival: walk-in History of Present Illness HPI narrative: 69-year-old female presents to the emergency department for not feeling well. She states she has had vomiting and diarrhea of 5 days duration. She had diarrhea once today but has not vomited. She had a burger. She has not had a fever or hematemesis or blood in her stool and does not complain of any pain but she feels a bit weak Related Data Home Medications ?Medication ?Instructions ?Recorded ?Confirmed albuterol sulfate 90 mcg/actuation 2 inh inhalation Q6H PRN shortness 03/28/23 04/05/23 aerosol inhaler of breath or wheezing budesonide-formoterol HFA 160 2 inh inhalation BID 03/28/23 04/05/23 mcg-4.5 mcg/actuation aerosol inhaler (Symbicort) buspirone 30 mg tablet 30 mg PO BID 03/28/23 04/05/23 clonidine HCl 0.1 mg PO DAILY 03/28/23 04/05/23 hydroxyzine HCl 50 mg tablet 50 mg PO TID 03/28/23 04/05/23 ibuprofen 600 mg tablet (IBU) 600 mg PO QID PRN pain 03/28/23 04/05/23 lactulose 10 gram/15 mL oral 15 ml PO BID 03/28/23 04/05/23 solution quetiapine 400 mg tablet (Seroquel) 400 mg PO DAILY 03/28/23 04/05/23 tiotropium bromide 1.25 2 inh inhalation DAILY 03/28/23 04/05/23 mcg/actuation mist for inhalation (Spiriva Respimat) zolpidem 10 mg tablet (Ambien) 10 mg PO BEDTIME PRN insomnia 03/28/23 04/05/23 Previous Rx's ?Medication ?Instructions ?Recorded ondansetron 4 mg disintegrating 4 mg PO Q6H PRN nausea and 11/09/24 tablet vomiting #20 tabs Allergies Allergy/AdvReac Type Severity Reaction Status Date / Time erythromycin base Allergy Severe Rash Verified 03/28/23 13:43 amoxicillin Allergy Unknown Verified 03/28/23 13:43 Review of Systems ROS Narrative A ten point review of systems is negative except as noted above. PFSH PFSH Medical History (Updated 11/09/24 @ 18:16 by Raymond Doss MD) Lesion of rectum ?K62.9 - Disease of anus and rectum, unspecified (ICD-10) Back pain ?M54.9 - Dorsalgia, unspecified (ICD-10) Small cell lung cancer ?C34.90 - Malignant neoplasm of unspecified part of unspecified bronchus or lung (ICD-10) Severe protein-calorie malnutrition ?E43 - Unspecified severe protein-calorie malnutrition (ICD-10) Seizure disorder ?G40.909 - Epilepsy, unspecified, not intractable, without status epilepticus (ICD-10) Rectal bleeding ?K62.5 - Hemorrhage of anus and rectum (ICD-10) Osteopenia ?M85.80 - Other specified disorders of bone density and structure, unspecified site (ICD-10) Mixed hyperlipidemia ?E78.2 - Mixed hyperlipidemia (ICD-10) History of methamphetamine abuse ?F15.11 - Other stimulant abuse, in remission (ICD-10) History of hepatitis ?Z86.19 - Personal history of other infectious and parasitic diseases (ICD-10) Depression ?F32.A - Depression, unspecified (ICD-10) Chronic obstructive pulmonary disease (COPD) ?J44.9 - Chronic obstructive pulmonary disease, unspecified (ICD-10) Chronic constipation ?K59.09 - Other constipation (ICD-10) BMI less than 19,adult ?Z68.1 - Body mass index [BMI] 19.9 or less, adult (ICD-10) Bipolar 1 disorder ?F31.9 - Bipolar disorder, unspecified (ICD-10) Anxiety ?F41.9 - Anxiety disorder, unspecified (ICD-10) Abnormal PET scan of colon ?R94.8 - Abnormal results of function studies of other organs and systems (ICD-10) Surgical History (Updated 03/28/23 @ 13:56 by Radha Ramon) H/O colonoscopy ?Z98.890 - Other specified postprocedural states (ICD-10) History of lumpectomy ?Z98.890 - Other specified postprocedural states (ICD-10) Family History (Updated 03/28/23 @ 13:45 by Radha Ramon) Father Family history of cancer Mother Family history of cancer Social History (Updated 03/28/23 @ 13:46 by Radha Ramon) Within the past year, how often did you have a drink containing alcohol: never Within the past year, how many standard drinks containing alcohol did you have on a typical day: 1 or 2 Within the past year, how often did you have six or more drinks on one occasion: never Total score: 0 Score interpretation: A score less than 3 is consistent with normal alcohol consumption. Smoking status: Current every day smoker Nicotine containing products detail: SOMETIMES VAPES Non-prescribed substance use: denies use Little interest or pleasure in doing things: not at all Feeling down, depressed, or hopeless: not at all Exam Narrative Exam Narrative: Nurses note and vital signs reviewed and patient is not hypoxic. General: The patient appears well and in no apparent distress. Patient is resting comfortably on cart. Skin: Warm, dry, no pallor noted. There is no rash noted. Head: Normocephalic, atraumatic Eye: Normal conjunctiva, no drainage Ears, Nose, Mouth, and Throat: oral mucosa is slightly dry. Nares patent. Cardiovascular: Regular Rate and Rhythm Respiratory: Patient is in no distress, no accessory muscle use, lungs are clear to auscultation, no wheezing, rales or rhonchi Back: non-tender, no CVA tenderness bilaterally to percussion. GI: Soft and nontender Musculoskeletal: The patient has no evidence of calf tenderness, no pitting edema, symmetrical pulses noted bilaterally Neurological: Awake and alert Psychiatric: Cooperative Constitutional Vital Signs, click to edit/add: Last Vital Signs Temp 98.2 F 11/09/24 17:05 Pulse 86 11/09/24 17:05 Resp 18 11/09/24 17:05 BP 130/68 11/09/24 17:05 Pulse Ox 99 11/09/24 17:05 O2 Del Method Room Air 11/09/24 17:05 Course Vital Signs Vital signs: Vital Signs Temperature 98.2 F 11/09/24 17:05 Pulse Rate 86 11/09/24 17:05 Respiratory Rate 18 11/09/24 17:05 Blood Pressure 130/68 11/09/24 17:05 Pulse Oximetry 99 11/09/24 17:05 Oxygen Delivery Method Room Air 11/09/24 17:05 Temperature 98.2 F 11/09/24 17:05 Pulse Rate 86 11/09/24 17:05 Respiratory Rate 18 11/09/24 17:05 Blood Pressure 130/68 11/09/24 17:05 Pulse Oximetry 99 11/09/24 17:05 Oxygen Delivery Method Room Air 11/09/24 17:05 Medical Decision Making MDM Narrative Medical decision making narrative: The patient feels improved after IV fluids and IV Zofran. She is discharged home with a prescription for Zofran as well. Blood work is appropriate. She had no vomiting or diarrhea while here in the emergency department. Treatment diagnosis and follow-up were discussed with the patient. Differential Diagnosis Differential Diagnosis: Dehydration, gastroenteritis Lab Data Lab results reviewed: Yes I reviewed the patient's lab results Labs: Lab Results 11/09/24 Range/Units 17:17 WBC 8.0 (4.0-11.0) 10^3/uL RBC 3.21 L (4.20-5.40) 10^6/uL Hgb 10.2 L (12.0-16.0) g/dL Hct 30.0 L (36.0-48.0) % MCV 93.5 (81.0-99.0) fL MCH 31.8 (26.7-34.0) pg MCHC 34.0 (29.9-35.2) g/dL RDW 14.6 (11.0-15.0) % Plt Count 297 (150-450) 10^3/uL MPV 10.6 (9.5-13.5) fL Neut % (Auto) 56.8 (43.0-75.0) % Lymph % (Auto) 30.5 (20.5-60.0) % [place] % (Auto) 7.5 (1.7-12.0) % Eos % (Auto) 4.5 (0.9-7.0) % Baso % (Auto) 0.6 (0.2-2.0) % Neut # (Auto) 4.5 (1.4-6.5) 10^3/uL Lymph # (Auto) 2.4 (1.2-3.8) 10^3/uL [place] # (Auto) 0.6 (0.3-0.8) 10^3/uL Eos # (Auto) 0.4 (0.0-0.7) 10^3/uL Baso # (Auto) 0.1 (0.0-0.1) 10^3/uL Abs Immat Gran (auto) 0.01 (0.00-0.03) 10^3/uL Imm/Tot Granulo (auto) 0.1 (0.0-0.5) % Sodium 143 (136-145) mmol/L Potassium 3.8 (3.5-5.1) mmol/L Chloride 106 (98-107) mmol/L Carbon Dioxide 24.6 (21.0-32.0) mmol/L Anion Gap 16.2 BUN 20.0 H (7.0-18.0) mg/dL Creatinine 0.67 (0.55-1.02) mg/dL Est GFR ( Amer) >60 (>=60 mL/min/1.73m^2) Est GFR (Non-Af Amer) >60 (>=60 mL/min/1.73m^2) BUN/Creatinine Ratio 29.9 Glucose 110 H (74-106) mg/dL Calcium 8.9 (8.5-10.1) mg/dL Discharge Plan Discharge Chief Complaint: Nausea/Vomiting/Diarrhea Clinical Impression: Nausea, vomiting, and diarrhea Patient Disposition: Home, Self-Care Time of Disposition Decision: 18:16 Condition: Good Mode of Transportation: Private Vehicle Prescriptions / Home Meds: New ondansetron 4 mg tablet,disintegrating 4 mg PO Q6H PRN (Reason: nausea and vomiting) Qty: 20 0RF No Action albuterol sulfate 90 mcg/actuation HFA aerosol inhaler 2 inh inhalation Q6H PRN (Reason: shortness of breath or wheezing) zolpidem [Ambien] 10 mg tablet 10 mg PO BEDTIME PRN (Reason: insomnia) buspirone 30 mg tablet 30 mg PO BID clonidine HCl 0.1 mg PO DAILY hydroxyzine HCl 50 mg tablet 50 mg PO TID ibuprofen [IBU] 600 mg tablet 600 mg PO QID PRN (Reason: pain) lactulose 10 gram/15 mL solution 15 ml PO BID quetiapine [Seroquel] 400 mg tablet 400 mg PO DAILY Spiriva Respimat 1.25 mcg/actuation mist 2 inh inhalation DAILY budesonide-formoterol [Symbicort] 160-4.5 mcg/actuation HFA aerosol inhaler 2 inh inhalation BID Print Language: Israeli Instructions: Acute Nausea and Vomiting (ED), Acute Diarrhea (ED) Referrals: Shaikh Mora MD [Physician, Internal Medicine] - 1 week
[2024-11-09] MEDS: 0.9 % SODIUM CHLORIDE 500 ML IV (17:24)
[2024-11-09] MEDS: ONDANSETRON PF 4 MG/2 ML VIAL IV (17:25)
[2024-11-09 17:29] LABS: Basophils Absolute Auto 0.1 10^3/uL (0.0-0.1); Basophils Percent Auto 0.6 % (0.2-2.0); Eosinophils Absolute Auto 0.4 10^3/uL (0.0-0.7); Eosinophils Percent Auto 4.5 % (0.9-7.0); Hemoglobin 10.2 g/dL (12.0-16.0); Immature Granulocytes Abs Auto 0.01 10^3/uL (0.00-0.03); Immature Granulocytes Pct Auto 0.1 % (0.0-0.5); Lymphocytes Absolute Auto 2.4 10^3/uL (1.2-3.8); Lymphocytes Percent Auto 30.5 % (20.5-60.0); Mean Corpuscular Hemoglobin 31.8 pg (26.7-34.0); Mean Corpuscular Volume 93.5 fL (81.0-99.0); Mean Platelet Volume 10.6 fL (9.5-13.5); Monocytes Absolute Auto 0.6 10^3/uL (0.3-0.8); Monocytes Percent Auto 7.5 % (1.7-12.0); Neutrophils Absolute Auto 4.5 10^3/uL (1.4-6.5); Neutrophils Percent Auto 56.8 % (43.0-75.0); Platelet Count 297 10^3/uL (150-450); Red Blood Count 3.21 10^6/uL (4.20-5.40); Red Cell Distribution Width 14.6 % (11.0-15.0)
[2024-11-09 17:39] LABS: Anion Gap 16.2; BUN Creatinine Ratio 29.9; Calcium 8.9 mg/dL (8.5-10.1); Carbon Dioxide 24.6 mmol/L (21.0-32.0); Chloride 106 mmol/L (98-107); Estimated GFR (African America >60 (>=60 mL/min/1.73m^2); Estimated GFR (Non-African Ame >60 (>=60 mL/min/1.73m^2); Glucose 110 mg/dL (74-106); Potassium 3.8 mmol/L (3.5-5.1); Sodium 143 mmol/L (136-145)
== END 2024-11-09 18:20 | disposition home or self-care (01) ==
PROVIDERS: Emergency Provider Emergency Medicine
DX: R11.2 Nausea with vomiting, unspecified (principal); R19.7 Diarrhea, unspecified; R53.1 Weakness
CPT/HCPCS: 36415; 80048; 85025; 96361; 96374; 99284; J2405

== ENCOUNTER 2024-11-26 12:29 | Outpatient (OUT) | payer MEDICARE, MEDICAID, SELFPAY ==
--- NOTE | 2024-11-26 12:39 | MR_ITS ---
The [address] [address] Patient Name: DAMON WHIPPLE MRN: [id number] date: 1955 Sex: F Assigned Patient Location: LAB Current Patient Location: LAB Accession/Order Number: [id number] Exam Date: 11/26/2024 14:30 Report Date: 11/26/2024 14:33 At the request of: APOLINAR ROUSSEAU MD Procedure: MR head/brain wo/w con MRI of the brain with and without IV contrast. Reason for exam: Lung cancer. COMPARISON: MRI 02/06/2024. TECHNIQUE: Multisequence, multiplanar images of the brain was performed with and without IV contrast. FINDINGS: No evidence of restriction diffusion is an diffusion-weighted imaging. No evidence of blood products are seen on T2 Star imaging. Cortical atrophy with mild chronic microvascular ischemic changes are noted. Posterior fossa appears unremarkable. Intraorbital contents appear unremarkable. Mild right maxillary sinus disease. Postcontrast imaging demonstrates no abnormal enhancement to suggest metastatic disease. MR/MR head/brain wo/w con IMPRESSION: No acute intracranial process. No abnormal enhancement is seen to suggest metastatic disease. Cortical atrophy with mild chronic microvascular ischemic changes similar to the prior study. Impression dictated by: Williams Méndez Jr., D.O. 11/26/2024 2:33 PM Dictation Location: [place] [address] Electronically authenticated by: [id number] Date: 11/26/2024 14:33
[2024-11-26 12:51] LABS: Estimated GFR (African America >60 (>=60 mL/min/1.73m^2); Estimated GFR (Non-African Ame >60 (>=60 mL/min/1.73m^2)
== END 2024-11-26 12:30 | disposition home or self-care (01) ==
LOC: LAB 12:29
PROVIDERS: Visit Provider Internal Medicine Hematology & Oncology
DX: C34.90 Malignant neoplasm of unspecified part of unspecified bronchus or lung (principal); Z85.118 Personal history of other malignant neoplasm of bronchus and lung
CPT/HCPCS: 36415; 70553; 82565; A9575